=== PATIENT | female | born 1980 | race Caucasian/White ===

== ENCOUNTER 2017-12-30 10:27 | Emergency (ER) | payer MEDICARE, MEDICAID ==
[2017-12-30] MEDS ORDERED: Sodium Chloride 0.9% 10 ML Syringe FLUSH PRN (10:35)
[2017-12-30] MEDS ORDERED: Sodium Chloride 0.9% 1,000 ML IV ONE (10:36)
[2017-12-30 11:13] LABS: CHLORIDE,CL 94 mmol/L (98-107); SODIUM,NA 140 mmol/L (136-145)
[2017-12-30 11:14] LABS: ANION GAP 22.7 mmol/L (10-20)
--- NOTE | 2017-12-30 11:29 | EDM.PDOC ---
ED HPI GENERAL MEDICAL PROBLEM - General Chief Complaint: Neurological Problem Stated Complaint: Seizure; Fall Time Seen by Provider: 12/30/17 10:32 Source of Information: Reports: EMS Notes Reviewed, Family, RN, RN Notes Reviewed History Limitations: Reports: No Limitations - History of Present Illness INITIAL COMMENTS - FREE TEXT/NARRATIVE: Patient is brought to the ED at [facility] via EMS after she had a witness seizure at home. According to EMS, the patient was walking to her door to let her mother in when she tripped and fell. At the time, her mother called EMS due to the fall. While law enforcement were there, the patient had a witnessed seizure for 1-2 minutes. Upon EMS arrival, the patient appeared to post ictal. Patient was unresponsive and did not follow any commands. Arrival to ER patient initially did not open her eyes. She did after a short time, able to answer and follow commands. She complaints of left ankle pain. She denies any headache. No chest pain or SOB. Patient able to move all extremities. Onset: Today Onset Date: 12/30/17 - Related Data Allergies Allergy/AdvReac Type Severity Reaction Status Date / Time propoxyphene [From Darvon-N] Allergy Severe Hives Verified 12/30/17 11:14 heparin AdvReac Severe Other Verified 12/30/17 11:14 amoxicillin AdvReac Unknown Other Verified 12/30/17 11:14 clonidine AdvReac Unknown Other Verified 12/30/17 11:14 codeine AdvReac Unknown Nausea Verified 12/30/17 11:14 ketorolac AdvReac Unknown Nausea Verified 12/30/17 11:14 sulfamethoxazole AdvReac Unknown Nausea and Verified 12/30/17 11:14 [From Bactrim] Vomiting tramadol AdvReac Unknown Nausea Verified 12/30/17 11:14 trimethoprim [From Bactrim] AdvReac Unknown Nausea and Verified 12/30/17 11:14 Vomiting ED ROS GENERAL - Review of Systems Review Of Systems: Unable To Obtain - Physical Exam Exam: See Below Exam Limited By: No Limitations General Appearance: Alert, No Apparent Distress, Lethargic Eye Exam: Right Eye: Normal Inspection, Left Eye: Other (Prosthestic eye; Right pupil sluggish) Head Exam: Atraumatic, Normocephalic Neck: Supple Respiratory/Chest: No Respiratory Distress, Lungs Clear, Normal Breath Sounds Cardiovascular: Normal Peripheral Pulses, Regular Rate, Rhythm GI/Abdominal: Normal Bowel Sounds, Soft, Non-Tender Neuro Exam (Abbreviated): Other (Initially unresponsive; over 5-10 minutes patient able to follow commands and become more verbal) Back Exam: Normal Inspection Extremities: Other (Left anle; tib/fib obvious bone deformity; skin intact; moderate swelling) Skin Exam: Warm, Dry, Intact EKG INTERPRETATION EKG Date: 12/30/17 Time: 10:42 Rate (Beats/Min): 107 [place]: Normal P-Wave: Present QRS: Normal ST-T: Normal QT: Normal [place]/PQ Interval: 0.15 Comparison: NA - No Prior EKG EKG Interpretation Comments: 1. Sinus Tachycardia 2. ST Deviation and moderate T-wave Course - Orders/Labs/Meds Orders: Active Orders 24 hr Category Date Time Status EKG 12 Lead [EKG Documentation Completion] [RC] STAT Care 12/30/17 10:45 Active Urinary Catheter Assessment [RC] ASDIRECTED Care 12/30/17 11:02 Inactive Ankle Min 3V Lt [CR] Stat Exams 12/30/17 10:45 Ordered Head wo Cont [CT] Stat Exams 12/30/17 10:32 Taken Tibia Fibula Lt [CR] Stat Exams 12/30/17 10:46 Taken Sodium Chloride 0.9% [Saline Flush] Med 12/30/17 10:35 Active 10 ml FLUSH ASDIRECTED PRN Peripheral IV Insertion Adult [OM.PC] Routine Oth 12/30/17 10:35 Ordered Medication Orders Sodium Chloride (Saline Flush) 10 ml FLUSH ASDIRECTED PRN PRN Reason: Keep Vein Open Labs: Laboratory Tests 12/30/17 12/30/17 12/30/17 Range/Units 10:46 10:46 10:46 WBC 5.5 (4.0-10.0) x10^3/uL RBC 4.32 (4.00-5.50) x10^6/uL Hgb 12.6 (12.0-16.0) g/dL Hct 38.0 (33.0-47.0) % MCV 88.0 (78.0-93.0) fL MCH 29.2 (26.0-32.0) pg MCHC 33.2 (32.0-36.0) g/dL RDW Coeff of Sammie 14.3 (10.0-15.0) % Plt Count 210 (130-400) x10^3/uL Neut % (Auto) 62.6 (50.0-80.0) % Lymph % (Auto) 24.1 L (25.0-50.0) % [place] % (Auto) 8.9 (2.0-11.0) % Eos % (Auto) 3.3 (0.0-4.0) % Baso % (Auto) 1.1 (0.2-1.2) % PT 11.0 (9.6-11.4) SEC INR 1.1 L (2.0-3.5) APTT 23.1 (21.3-33.5) SEC Sodium 140 (136-145) mmol/L Potassium 3.7 (3.5-5.1) mmol/L Chloride 94 L (98-107) mmol/L Carbon Dioxide 27 (21-32) mmol/L Anion Gap 22.7 H (10-20) mmol/L BUN 34 H (7-18) mg/dL Creatinine 13.0 H* (0.55-1.02) mg/dL Est Cr Clr Drug Dosing TNP Estimated GFR (MDRD) 3 Glucose 163 H (74-106) mg/dL Calcium 8.5 (8.5-10.1) mg/dL Corrected Calcium 8.82 (8.5-10.1) mg/dL Total Bilirubin 0.7 (0.2-1.0) mg/dL AST 13 L (15-37) U/L ALT 13 L (14-59) U/L Alkaline Phosphatase 173 H (46-116) U/L Creatine Kinase 96 (26-192) U/L POC Troponin I (0.00-0.08) ng/mL Total Protein 7.6 (6.4-8.2) g/dL Albumin 3.6 (3.4-5.0) g/dL Globulin 4.0 Albumin/Globulin Ratio 0.90 //18 Range/Units 10:50 WBC (4.0-10.0) x10^3/uL RBC (4.00-5.50) x10^6/uL Hgb (12.0-16.0) g/dL Hct (33.0-47.0) % MCV (78.0-93.0) fL MCH (26.0-32.0) pg MCHC (32.0-36.0) g/dL RDW Coeff of Sammie (10.0-15.0) % Plt Count (130-400) x10^3/uL Neut % (Auto) (50.0-80.0) % Lymph % (Auto) (25.0-50.0) % [place] % (Auto) (2.0-11.0) % Eos % (Auto) (0.0-4.0) % Baso % (Auto) (0.2-1.2) % PT (9.6-11.4) SEC INR (2.0-3.5) APTT (21.3-33.5) SEC Sodium (136-145) mmol/L Potassium (3.5-5.1) mmol/L Chloride (98-107) mmol/L Carbon Dioxide (21-32) mmol/L Anion Gap (10-20) mmol/L BUN (7-18) mg/dL Creatinine (0.55-1.02) mg/dL Est Cr Clr Drug Dosing Estimated GFR (MDRD) Glucose (74-106) mg/dL Calcium (8.5-10.1) mg/dL Corrected Calcium (8.5-10.1) mg/dL Total Bilirubin (0.2-1.0) mg/dL AST (15-37) U/L ALT (14-59) U/L Alkaline Phosphatase (46-116) U/L Creatine Kinase (26-192) U/L POC Troponin I 0.01 (0.00-0.08) ng/mL Total Protein (6.4-8.2) g/dL Albumin (3.4-5.0) g/dL Globulin Albumin/Globulin Ratio Meds: Medications Generic Name Dose Route Start Last Admin Trade Name Freq PRN Reason Stop Dose Admin Sodium Chloride 10 ml 12/30/17 10:35 Saline Flush FLUSH ASDIRECTED PRN Keep Vein Open Discontinued Medications Generic Name Dose Route Start Last Admin Trade Name Freq PRN Reason Stop Dose Admin Sodium Chloride 1,000 mls @ 999 mls/hr 12/30/17 10:36 Normal Saline IV 12/30/17 11:36 ONETIME ONE - Radiology Interpretation Free Text/Narrative:: CT Head: Negative; no acute plain CT Abnormality Tib/Fib: Left tib/fib fracture; unstable bimalleolar fracture See scanned report in EMR CT Results Date: 12/30/17 CT Results Time: 10:47 Departure - Departure Time of Disposition: 11:45 Disposition: DC/Tfer to Acute Hospital 02 Condition: Fair Clinical Impression: Seizure Bimalleolar ankle fracture Qualifiers: Encounter type: initial encounter Fracture type: closed Laterality: left Qualified Code(s): S82.842A - Displaced bimalleolar fracture of left lower leg, initial encounter for closed fracture Tibia/fibula fracture Qualifiers: Encounter type: initial encounter Fracture type: closed Laterality: left Qualified Code(s): S82.202A - Unspecified fracture of shaft of left tibia, initial encounter for closed fracture; S82.402A - Unspecified fracture of shaft of left fibula, initial encounter for closed fracture - Discharge Information *PRESCRIPTION DRUG MONITORING PROGRAM REVIEWED*: Not Applicable *COPY OF PRESCRIPTION DRUG MONITORING REPORT IN PATIENT LYNDA: Not Applicable Forms: Interfacility Transfer [facility] ED Communication - ED Communication Date/Time Date: 12/30/17 Time Called: 11:40 - Discussed Case With (1) Discussed Case With (1): Admitting Provider (DR. Howell, ED provider) - Conversation Summary Admitting Provider Agreed to Patient's Admission: Yes Patient Aware of Amendments fo Care Plan: Yes Patient's POA/Guardian Aware of Amendments to Care Plan: Yes - Problem List Review Problem List Initiated/Reviewed/Updated: Yes - My Orders Last 24 Hours: My Active Orders 12/30/17 10:32 Head wo Cont [CT] Stat 12/30/17 10:35 Sodium Chloride 0.9% [Saline Flush] 10 ml FLUSH ASDIRECTED PRN Peripheral IV Insertion Adult [OM.PC] Routine 12/30/17 10:45 EKG 12 Lead [EKG Documentation Completion] [RC] STAT Ankle Min 3V Lt [CR] Stat 12/30/17 10:46 Tibia Fibula Lt [CR] Stat 12/30/17 11:02 Urinary Catheter Assessment [RC] ASDIRECTED - Assessment/Plan Last 24 Hours: My Active Orders 12/30/17 10:32 Head wo Cont [CT] Stat 12/30/17 10:35 Sodium Chloride 0.9% [Saline Flush] 10 ml FLUSH ASDIRECTED PRN Peripheral IV Insertion Adult [OM.PC] Routine 12/30/17 10:45 EKG 12 Lead [EKG Documentation Completion] [RC] STAT Ankle Min 3V Lt [CR] Stat 12/30/17 10:46 Tibia Fibula Lt [CR] Stat 12/30/17 11:02 Urinary Catheter Assessment [RC] ASDIRECTED
== END 2017-12-30 12:21 | disposition short-term general hospital (02) ==
LOC: VM.ED 10:27
DX: S82.842A Displaced bimalleolar fracture of left lower leg, initial encounter for closed fracture (principal); S82.832A Other fracture of upper and lower end of left fibula, initial encounter for closed fracture; R56.9 Unspecified convulsions; W01.0XXA Fall on same level from slipping, tripping and stumbling without subsequent striking against object, initial encounter; Z88.0 Allergy status to penicillin; Z88.5 Allergy status to narcotic agent; Z88.6 Allergy status to analgesic agent; Z88.8 Allergy status to other drugs, medicaments and biological substances
CPT/HCPCS: 36415; 70450; 73590-LT; 80053; 82550; 84484; 85025; 85610; 85730; 93005; 99285

== ENCOUNTER 2018-01-19 19:36 | Emergency (ER) | payer MEDICARE, MEDICAID ==
[2018-01-19 21:05] LABS: CHLORIDE,CL 95 mmol/L (98-107); SODIUM,NA 137 mmol/L (136-145)
--- NOTE | 2018-01-19 21:06 | EDM.PDOC ---
ED HPI GENERAL MEDICAL PROBLEM - General Chief Complaint: Abdominal Pain Stated Complaint: nausea, abdominal pain Time Seen by Provider: 01/19/18 20:02 Source of Information: Reports: Patient, Family History Limitations: Reports: No Limitations - History of Present Illness INITIAL COMMENTS - FREE TEXT/NARRATIVE: Dialysis patient who had a new dialysis catheter placed yesterday and shortly thereafter began vomiting. She is here today with similar symptoms, as well as abdominal pain. NO pain to the cath. site. She denies headache, SOB, change in LOC, no chest pain or pressure. Does endorse abdominal pain, nausea and vomiting. NO diarrhea. Denies fever. Onset: Gradual Duration: Intermittent Location: Reports: Abdomen Quality: Reports: Ache Associated Symptoms: Reports: Nausea/Vomiting abd Pain Score (Numeric/FACES): 6 left foot Pain Score (Numeric/FACES): 8 - Related Data Allergies Allergy/AdvReac Type Severity Reaction Status Date / Time propoxyphene [From Darvon-N] Allergy Severe Hives Verified 01/19/18 21:55 heparin AdvReac Severe Other Verified 01/19/18 21:55 amoxicillin AdvReac Unknown Other Verified 01/19/18 21:55 clonidine AdvReac Unknown Other Verified 01/19/18 21:55 codeine AdvReac Unknown Nausea Verified 01/19/18 21:55 ketorolac AdvReac Unknown Nausea Verified 01/19/18 21:55 sulfamethoxazole AdvReac Unknown Nausea and Verified 01/19/18 21:55 [From Bactrim] Vomiting tramadol AdvReac Unknown Nausea Verified 01/19/18 21:55 trimethoprim [From Bactrim] AdvReac Unknown Nausea and Verified 01/19/18 21:55 Vomiting Home Meds: Home Meds Acetaminophen 1,000 mg PO Q6H PRN 12/30/17 [History] Aspirin 81 mg PO DAILY 12/30/17 [History] Calcium Acetate [PhosLo] 2,001 mg PO TIDMEALS 12/30/17 [History] Calcium Carbonate [Tums Extra Strength] 750 mg PO TID 12/30/17 [History] Clopidogrel [Plavix] 75 mg PO DAILY 12/30/17 [History] Cyclobenzaprine [Flexeril] 5 - 10 mg PO BEDTIME PRN 12/30/17 [History] DULoxetine [Cymbalta] 60 mg PO DAILY 12/30/17 [History] Dextrose [Glucose] 15 gram PO ASDIRECTED PRN 12/30/17 [History] Dextrose [Glucose] 16 gm PO ONETIME PRN 12/30/17 [History] Doxercalciferol 0 mcg IV Q14D 12/30/17 [History] Ergocalciferol (Vitamin D2) [Drisdol] 50,000 unit PO DAILY 12/30/17 [History] Glucagon,Human Recombinant [Glucagon Emergency Kit] 1 mg IV ASDIRECTED PRN 12/30 [History] Hydrocodone/Acetaminophen [Hydrocodon-Acetaminophen 5-325] 1 tab PO Q4H PRN [History] Insulin Degludec [Tresiba Flextouch U-100] 16 units SUBCUT DAILY 12/30/17 [ History] Lisinopril 20 mg PO BID 12/30/17 [History] Lurasidone HCl [Latuda] 60 mg PO DAILY 12/30/17 [History] Metoprolol Tartrate 25 mg PO BID 12/30/17 [History] Midodrine 5 mg PO TID PRN 12/30/17 [History] Nitroglycerin [Nitrostat] 0.4 mg SL ASDIRECTED PRN MDD 3 doses in 15 minutes [History] Non-Formulary Medication [NF Drug] 0 dose SUBCUT ASDIRECTED 12/30/17 [History] Ondansetron [Zofran ODT] 4 mg PO Q4H PRN 12/30/17 [History] Pravastatin Sodium [Pravachol] 40 mg PO BEDTIME 12/30/17 [History] Pregabalin [Lyrica] 300 mg PO BEDTIME 12/30/17 [History] amLODIPine Besylate [Amlodipine Besylate] 5 mg PO BID 12/30/17 [History] ED ROS GENERAL - Review of Systems Review Of Systems: See Below Constitutional: Reports: No Symptoms HEENT: Reports: No Symptoms Respiratory: Reports: No Symptoms Cardiovascular: Reports: No Symptoms Endocrine: Reports: No Symptoms GI/Abdominal: Reports: Abdominal Pain, Nausea, Vomiting : Reports: No Symptoms Musculoskeletal: Reports: No Symptoms Skin: Reports: No Symptoms Neurological: Reports: No Symptoms Psychiatric: Reports: No Symptoms Hematologic/Lymphatic: Reports: No Symptoms Immunologic: Reports: No Symptoms ED EXAM, GENERAL - Physical Exam Exam: See Below Exam Limited By: No Limitations General Appearance: Alert, WD/WN, No Apparent Distress Eye Exam: Bilateral Eye: EOMI, Normal Inspection, PERRL Ears: Normal TMs Nose: Normal Inspection, Normal Mucosa, No Blood Throat/Mouth: Normal Inspection, Normal Lips, Normal Teeth, Normal Gums, Normal Oropharynx, Normal Voice, No Airway Compromise Head: Atraumatic, Normocephalic Neck: Normal Inspection, Supple, Non-Tender, Full Range of Motion Respiratory/Chest: No Respiratory Distress, Lungs Clear, Normal Breath Sounds, No Accessory Muscle Use, Chest Non-Tender Cardiovascular: Normal Peripheral Pulses, Regular Rate, Rhythm, No Edema, No Gallop, No JVD, No Murmur, No Rub Peripheral Pulses: 2+: Posterior Tibial (L), Posterior Tibial (R), Dorsalis Pedis (L), Dorsalis Pedis (R) GI/Abdominal: Normal Bowel Sounds, Soft, Non-Tender, No Organomegaly, No Distention, No Abnormal Bruit, No Mass Back Exam: Normal Inspection, Full Range of Motion, NT Extremities: Normal Inspection, Normal Range of Motion, Non-Tender, Normal Capillary Refill, No Pedal Edema Neurological: Alert, Oriented, CN II-XII Intact, Normal Cognition, Normal Gait, Normal Reflexes, No Motor/Sensory Deficits Psychiatric: Normal Affect, Normal Mood Skin Exam: Warm, Dry, Intact, Normal Color, No Rash Lymphatic: No Adenopathy Course - Vital Signs Last Recorded V/S: Last Vital Signs Temp 37.5 C 01/19/18 19:50 Pulse 97 01/19/18 19:50 Resp 16 01/19/18 19:50 BP 152/92 H 01/19/18 19:50 Pulse Ox 99 01/19/18 19:50 - Orders/Labs/Meds Orders: Active Orders 24 hr Category Date Time Status CULTURE BLOOD [BC] Stat Lab 01/19/18 20:25 Results CULTURE BLOOD [BC] Stat Lab 01/19/18 20:35 Results Blood Culture x2 Reflex Set [OM.PC] Stat Oth 01/19/18 20:07 Ordered Labs: Laboratory Tests 01/19/18 01/19/18 01/19/18 Range/Units 20:25 20:25 20:25 WBC 3.5 L (4.0-10.0) x10^3/uL RBC 2.83 L (4.00-5.50) x10^6/uL Hgb 8.2 L D (12.0-16.0) g/dL Hct 25.3 L (33.0-47.0) % MCV 89.4 (78.0-93.0) fL MCH 29.0 (26.0-32.0) pg MCHC 32.4 (32.0-36.0) g/dL RDW Coeff of Sammie 14.3 (10.0-15.0) % Plt Count 346 D (130-400) x10^3/uL Neut % (Auto) 51.1 (50.0-80.0) % Lymph % (Auto) 26.0 (25.0-50.0) % [place] % (Auto) 19.7 H (2.0-11.0) % Eos % (Auto) 2.0 (0.0-4.0) % Baso % (Auto) 1.2 (0.2-1.2) % PT 11.7 H (9.6-11.4) SEC INR 1.1 L (2.0-3.5) Sodium 137 (136-145) mmol/L Potassium 3.5 (3.5-5.1) mmol/L Chloride 95 L (98-107) mmol/L Carbon Dioxide 27 (21-32) mmol/L Anion Gap 18.5 (10-20) mmol/L BUN 10 (7-18) mg/dL Creatinine 5.2 H* D (0.55-1.02) mg/dL Est Cr Clr Drug Dosing TNP Estimated GFR (MDRD) 9 Glucose 145 H (74-106) mg/dL Lactic Acid (0.4-2.0) mmol/L Calcium 9.2 (8.5-10.1) mg/dL Corrected Calcium 10.24 H (8.5-10.1) mg/dL Total Bilirubin 0.7 (0.2-1.0) mg/dL AST 11 L (15-37) U/L ALT 8 L (14-59) U/L Alkaline Phosphatase 150 H (46-116) U/L Creatine Kinase 30 (26-192) U/L Troponin I < 0.017 (<=0.056) ng/mL C-Reactive Protein 10.3 H (<=0.9) mg/dL Total Protein 6.8 (6.4-8.2) g/dL Albumin 2.7 L (3.4-5.0) g/dL Globulin 4.1 Albumin/Globulin Ratio 0.66 01/19/18 Range/Units 20:25 WBC (4.0-10.0) x10^3/uL RBC (4.00-5.50) x10^6/uL Hgb (12.0-16.0) g/dL Hct (33.0-47.0) % MCV (78.0-93.0) fL MCH (26.0-32.0) pg MCHC (32.0-36.0) g/dL RDW Coeff of Sammie (10.0-15.0) % Plt Count (130-400) x10^3/uL Neut % (Auto) (50.0-80.0) % Lymph % (Auto) (25.0-50.0) % [place] % (Auto) (2.0-11.0) % Eos % (Auto) (0.0-4.0) % Baso % (Auto) (0.2-1.2) % PT (9.6-11.4) SEC INR (2.0-3.5) Sodium (136-145) mmol/L Potassium (3.5-5.1) mmol/L Chloride (98-107) mmol/L Carbon Dioxide (21-32) mmol/L Anion Gap (10-20) mmol/L BUN (7-18) mg/dL Creatinine (0.55-1.02) mg/dL Est Cr Clr Drug Dosing Estimated GFR (MDRD) Glucose (74-106) mg/dL Lactic Acid 0.6 (0.4-2.0) mmol/L Calcium (8.5-10.1) mg/dL Corrected Calcium (8.5-10.1) mg/dL Total Bilirubin (0.2-1.0) mg/dL AST (15-37) U/L ALT (14-59) U/L Alkaline Phosphatase (46-116) U/L Creatine Kinase (26-192) U/L Troponin I (<=0.056) ng/mL C-Reactive Protein (<=0.9) mg/dL Total Protein (6.4-8.2) g/dL Albumin (3.4-5.0) g/dL Globulin Albumin/Globulin Ratio Departure - Departure Time of Disposition: 21:15 Disposition: Home, Self-Care 01 Condition: Good Clinical Impression: Viral gastroenteritis - Discharge Information *PRESCRIPTION DRUG MONITORING PROGRAM REVIEWED*: Not Applicable *COPY OF PRESCRIPTION DRUG MONITORING REPORT IN PATIENT LYNDA: Not Applicable Instructions: Viral Gastroenteritis, Adult, [id number] Referrals: PCP,Not In Area [Primary Care Provider] - Forms: ED Department Discharge Additional Instructions: Stay well hydrated, drink fluids as tolerated. You do appear to have a viral gastroenteritis. However, schedule follow up with your primary provider for additional symptom management. Your labs look rather normal and do not show an acute infection. Please call the hospital with any additional questions or concerns. - My Orders Last 24 Hours: My Active Orders 01/19/18 20:07 Blood Culture x2 Reflex Set [OM.PC] Stat 01/19/18 20:25 CULTURE BLOOD [BC] Stat 01/19/18 20:35 CULTURE BLOOD [BC] Stat - Assessment/Plan Last 24 Hours: My Active Orders 01/19/18 20:07 Blood Culture x2 Reflex Set [OM.PC] Stat 01/19/18 20:25 CULTURE BLOOD [BC] Stat 01/19/18 20:35 CULTURE BLOOD [BC] Stat
[2018-01-19 21:07] LABS: ANION GAP 18.5 mmol/L (10-20)
== END 2018-01-19 21:15 | disposition home or self-care (01) ==
LOC: VM.ED 19:36
DX: A08.4 Viral intestinal infection, unspecified (principal); Z88.8 Allergy status to other drugs, medicaments and biological substances; Z79.899 Other long term (current) drug therapy; Z79.82 Long term (current) use of aspirin; Z79.4 Long term (current) use of insulin; Z99.2 Dependence on renal dialysis
CPT/HCPCS: 36415; 80053; 82550; 83605; 84484; 85025; 85610; 86140; 87040; 87077; 99283

== ENCOUNTER 2018-02-03 07:36 | Emergency (ER) | payer MEDICARE, MEDICAID ==
--- NOTE | 2018-02-03 08:02 | EDM.PDOC ---
ED HPI GENERAL MEDICAL PROBLEM - General Chief Complaint: Abdominal Pain Stated Complaint: POSITIVE CULTURE Time Seen by Provider: 02/03/18 07:57 Source of Information: Reports: Patient History Limitations: Reports: No Limitations - History of Present Illness INITIAL COMMENTS - FREE TEXT/NARRATIVE: Patient returns to the ED with nausea, vomiting, and chills. She does have a positive blood culture for bacillus cereus for which she is currently getting IV vancomycin. This was started at the [facility]. We had been trying to contact her to start her on the same, however our attempts were unsuccessful, so it is good to see that she has already been started on this. She states that the nausea and chills really had not gone away since she saw me January 19, 2018. She also does have pain and throbbing to her left ankle. She did have surgery on that foot. She has no other complaints. Her last set of blood work was negative for elevated white count. Onset: Gradual Duration: Intermittent Location: Reports: Abdomen Severity: Moderate Worsens with: Reports: Movement Associated Symptoms: Reports: Fever/Chills, Nausea/Vomiting - Related Data Allergies Allergy/AdvReac Type Severity Reaction Status Date / Time propoxyphene [From Darvon-N] Allergy Severe Hives Verified 01/19/18 21:55 heparin AdvReac Severe Other Verified 01/19/18 21:55 amoxicillin AdvReac Unknown Other Verified 01/19/18 21:55 clonidine AdvReac Unknown Other Verified 01/19/18 21:55 codeine AdvReac Unknown Nausea Verified 01/19/18 21:55 ketorolac AdvReac Unknown Nausea Verified 01/19/18 21:55 sulfamethoxazole AdvReac Unknown Nausea and Verified 01/19/18 21:55 [From Bactrim] Vomiting tramadol AdvReac Unknown Nausea Verified 01/19/18 21:55 trimethoprim [From Bactrim] AdvReac Unknown Nausea and Verified 01/19/18 21:55 Vomiting Home Meds: Home Meds Acetaminophen 1,000 mg PO Q6H PRN 12/30/17 [History] Aspirin 81 mg PO DAILY 12/30/17 [History] Calcium Acetate [PhosLo] 2,001 mg PO TIDMEALS 12/30/17 [History] Calcium Carbonate [Tums Extra Strength] 750 mg PO TID 12/30/17 [History] Clopidogrel [Plavix] 75 mg PO DAILY 12/30/17 [History] Cyclobenzaprine [Flexeril] 5 - 10 mg PO BEDTIME PRN 12/30/17 [History] DULoxetine [Cymbalta] 60 mg PO DAILY 12/30/17 [History] Dextrose [Glucose] 15 gram PO ASDIRECTED PRN 12/30/17 [History] Dextrose [Glucose] 16 gm PO ONETIME PRN 12/30/17 [History] Doxercalciferol 0 mcg IV Q14D 12/30/17 [History] Ergocalciferol (Vitamin D2) [Drisdol] 50,000 unit PO DAILY 12/30/17 [History] Glucagon,Human Recombinant [Glucagon Emergency Kit] 1 mg IV ASDIRECTED PRN 12/30 [History] Hydrocodone/Acetaminophen [Hydrocodon-Acetaminophen 5-325] 1 tab PO Q4H PRN [History] Insulin Degludec [Tresiba Flextouch U-100] 16 units SUBCUT DAILY 12/30/17 [ History] Lisinopril 20 mg PO BID 12/30/17 [History] Lurasidone HCl [Latuda] 60 mg PO DAILY 12/30/17 [History] Metoprolol Tartrate 25 mg PO BID 12/30/17 [History] Midodrine 5 mg PO TID PRN 12/30/17 [History] Nitroglycerin [Nitrostat] 0.4 mg SL ASDIRECTED PRN MDD 3 doses in 15 minutes [History] Non-Formulary Medication [NF Drug] 0 dose SUBCUT ASDIRECTED 12/30/17 [History] Ondansetron [Zofran ODT] 4 mg PO Q4H PRN 12/30/17 [History] Pravastatin Sodium [Pravachol] 40 mg PO BEDTIME 12/30/17 [History] Pregabalin [Lyrica] 300 mg PO BEDTIME 12/30/17 [History] amLODIPine Besylate [Amlodipine Besylate] 5 mg PO BID 12/30/17 [History] Past Medical History Genitourinary History: Reports: Dialysis Musculoskeletal History: Reports: Fracture - Past Surgical History Musculoskeletal Surgical History: Reports: Other (See Below) Other Musculoskeletal Surgeries/Procedures:: left foot surgery approx. 2 wks ago ED ROS GENERAL - Review of Systems Review Of Systems: See Below Constitutional: Reports: Chills HEENT: Reports: No Symptoms Respiratory: Reports: No Symptoms Cardiovascular: Reports: No Symptoms Endocrine: Reports: No Symptoms GI/Abdominal: Reports: Nausea : Reports: No Symptoms Musculoskeletal: Reports: Foot Pain Skin: Reports: No Symptoms Neurological: Reports: No Symptoms Psychiatric: Reports: No Symptoms Hematologic/Lymphatic: Reports: No Symptoms Immunologic: Reports: No Symptoms ED EXAM, GI/ABD - Physical Exam Exam: See Below Exam Limited By: No Limitations General Appearance: Alert, WD/WN, No Apparent Distress Eyes: Bilateral: Normal Appearance, EOMI Respiratory/Chest: No Respiratory Distress, Lungs Clear, Normal Breath Sounds, No Accessory Muscle Use, Chest Non-Tender, Other (dialysis catheter right subclavian) Cardiovascular: Normal Peripheral Pulses, Regular Rate, Rhythm, No Edema, No Gallop, No JVD, No Murmur, No Rub GI/Abdominal Exam: Normal Bowel Sounds, Soft, Non-Tender, No Organomegaly, No Distention, No Abnormal Bruit, No Mass, Pelvis Stable Back Exam: Normal Inspection, Full Range of Motion, NT Extremities: Normal Inspection, Normal Range of Motion, Non-Tender, No Pedal Edema, Normal Capillary Refill, Other (left foot in plastic boot) Neurological: Alert, Oriented, CN II-XII Intact, Normal Cognition, Normal Gait, Normal Reflexes, No Motor/Sensory Deficits Psychiatric: Normal Affect, Normal Mood Skin Exam: Warm, Dry, Intact, Normal Color, No Rash Lymphatic: No Adenopathy Departure - Departure Time of Disposition: 10:54 Disposition: Home, Self-Care 01 Condition: Good Clinical Impression: Nausea - Discharge Information *PRESCRIPTION DRUG MONITORING PROGRAM REVIEWED*: Not Applicable *COPY OF PRESCRIPTION DRUG MONITORING REPORT IN PATIENT LYNDA: Not Applicable Instructions: Nausea, Adult, [id number] Forms: ED Department Discharge Additional Instructions: Stay well hydrated. Make sure to keep your dialysis appointment today. You do have a blood infection, make sure to continue the IV Vancomycin. Follow up with your primary doctor as needed for additional symptom management. - Problem List & Annotations (1) Nausea SNOMED Code(s): 688917521 Code(s): R11.0 - NAUSEA Status: Acute Priority: Medium Current Visit: Yes - Problem List Review Problem List Initiated/Reviewed/Updated: Yes - Assessment/Plan Assessment:: nausea Plan: Stay well hydrated. Make sure to keep your dialysis appointment today. You do have a blood infection, make sure to continue the IV Vancomycin. Follow up with your primary doctor as needed for additional symptom management.
[2018-02-03] MEDS ORDERED: Sodium Chloride 0.9% 1,000 ML IV ONE (08:04)
[2018-02-03] MEDS ORDERED: Sodium Chloride 0.9% 10 ML Syringe FLUSH PRN (08:04)
[2018-02-03] MEDS ORDERED: Ondansetron 4 MG/2 ML SDV IVPUSH ONE (08:04)
== END 2018-02-03 10:54 | disposition home or self-care (01) ==
LOC: VM.ED 07:36
DX: R11.2 Nausea with vomiting, unspecified (principal); Z79.899 Other long term (current) drug therapy; Z79.82 Long term (current) use of aspirin; Z88.2 Allergy status to sulfonamides; Z88.6 Allergy status to analgesic agent; Z88.1 Allergy status to other antibiotic agents; Z88.8 Allergy status to other drugs, medicaments and biological substances; Z88.5 Allergy status to narcotic agent
CPT/HCPCS: 96361; 96374; 99283; 99283-GF; J2405; J7030

== ENCOUNTER 2018-02-08 09:32 | Emergency (ER) | payer MEDICARE, MEDICAID ==
[2018-02-08] MEDS ORDERED: LORazepam 2 MG/ML SDV ONE (09:39)
[2018-02-08] MEDS ORDERED: Sodium Chloride 0.9% 10 ML Syringe FLUSH PRN (09:46)
[2018-02-08] MEDS ORDERED: Sodium Chloride 0.9% 1,000 ML IV ONE (09:48)
[2018-02-08] MEDS ORDERED: Piperacillin/Tazobactam 2.25 GM in Sodium Chloride 0.9% 100 ML IV ONE (10:00)
[2018-02-08] MEDS ORDERED: Insulin Regular, Human 100 Units/ML 3 ML Vial IVPUSH ONE (10:09)
[2018-02-08 10:50] LABS: ANION GAP 38.7 mmol/L (10-20); CHLORIDE,CL 87 mmol/L (98-107); SODIUM,NA 132 mmol/L (136-145)
[2018-02-08] MEDS ORDERED: Acetaminophen 650 MG Supp RECTAL ONE (10:59)
[2018-02-08] MEDS ORDERED: Acetaminophen 650 MG Supp ONE (11:02)
[2018-02-08] MEDS ORDERED: Labetalol 20 MG/4 ML Syringe IVPUSH ONE ×2 (11:11→11:12)
--- NOTE | 2018-02-08 11:46 | EDM.PDOC ---
ED HPI GENERAL MEDICAL PROBLEM - General Chief Complaint: Possible Sepsis Time Seen by Provider: 02/08/18 09:32 Source of Information: Reports: EMS, Family History Limitations: Reports: Altered Mental Status - History of Present Illness INITIAL COMMENTS - FREE TEXT/NARRATIVE: Pt. presents to ER via EMS. Mom states that she went to check on the patient this morning around 0910. Her last known well was at noon yesterday. Mom states that she on the floor wedged between some furniture. Pt. has a complex medical history including a current dialysis line infection. A blood culture of the line grew bacillus cereus. Pt. was treated for this at [facility] and was discharged last Tuesday. She is currently receiving IV Vancomycin. Mom states that he apparently grew "staph" from a blood culture done at [facility] as well, which would explain the use of Vancomycin. I do not have access to her [facility] chart, and I'm gleaning this info from family. Pt. was responsive to strong verbal stimuli in the field. Initial GCS was around 11. O2 sat in the 90s and she was hypertensive. There was no evidence of trauma on scene. Pt. is known to be quite non-compliant with her medical problems. Mom states that she has been running "high since her discharge last Tuesday. Location: Reports: Generalized - Related Data Allergies Allergy/AdvReac Type Severity Reaction Status Date / Time propoxyphene [From Darvon-N] Allergy Severe Hives Verified 02/03/18 16:19 heparin AdvReac Severe Other Verified 02/03/18 16:19 amoxicillin AdvReac Unknown Other Verified 02/03/18 16:19 clonidine AdvReac Unknown Other Verified 02/03/18 16:19 codeine AdvReac Unknown Nausea Verified 02/03/18 16:19 ketorolac AdvReac Unknown Nausea Verified 02/03/18 16:19 sulfamethoxazole AdvReac Unknown Nausea and Verified 02/03/18 16:19 [From Bactrim] Vomiting tramadol AdvReac Unknown Nausea Verified 02/03/18 16:19 trimethoprim [From Bactrim] AdvReac Unknown Nausea and Verified 02/03/18 16:19 Vomiting Home Meds: Home Meds Acetaminophen 1,000 mg PO Q6H PRN 12/30/17 [History] Aspirin 81 mg PO DAILY 12/30/17 [History] Calcium Acetate [PhosLo] 2,001 mg PO TIDMEALS 12/30/17 [History] Calcium Carbonate [Tums Extra Strength] 750 mg PO TID 12/30/17 [History] Clopidogrel [Plavix] 75 mg PO DAILY 12/30/17 [History] Cyclobenzaprine [Flexeril] 5 - 10 mg PO BEDTIME PRN 12/30/17 [History] DULoxetine [Cymbalta] 60 mg PO DAILY 12/30/17 [History] Dextrose [Glucose] 15 gram PO ASDIRECTED PRN 12/30/17 [History] Dextrose [Glucose] 16 gm PO ONETIME PRN 12/30/17 [History] Doxercalciferol 0 mcg IV Q14D 12/30/17 [History] Ergocalciferol (Vitamin D2) [Drisdol] 50,000 unit PO DAILY 12/30/17 [History] Glucagon,Human Recombinant [Glucagon Emergency Kit] 1 mg IV ASDIRECTED PRN 12/30 [History] Hydrocodone/Acetaminophen [Hydrocodon-Acetaminophen 5-325] 1 tab PO Q4H PRN [History] Insulin Degludec [Tresiba Flextouch U-100] 16 units SUBCUT DAILY 12/30/17 [ History] Lisinopril 20 mg PO BID 12/30/17 [History] Lurasidone HCl [Latuda] 60 mg PO DAILY 12/30/17 [History] Metoprolol Tartrate 25 mg PO BID 12/30/17 [History] Midodrine 5 mg PO TID PRN 12/30/17 [History] Nitroglycerin [Nitrostat] 0.4 mg SL ASDIRECTED PRN MDD 3 doses in 15 minutes [History] Non-Formulary Medication [NF Drug] 0 dose SUBCUT ASDIRECTED 12/30/17 [History] Ondansetron [Zofran ODT] 4 mg PO Q4H PRN 12/30/17 [History] Pravastatin Sodium [Pravachol] 40 mg PO BEDTIME 12/30/17 [History] Pregabalin [Lyrica] 300 mg PO BEDTIME 12/30/17 [History] amLODIPine Besylate [Amlodipine Besylate] 5 mg PO BID 12/30/17 [History] Past Medical History Genitourinary History: Reports: Dialysis Musculoskeletal History: Reports: Fracture Endocrine/Metabolic History: Reports: Diabetes, Type I - Past Surgical History Musculoskeletal Surgical History: Reports: Other (See Below) Other Musculoskeletal Surgeries/Procedures:: left foot surgery approx. 2 wks ago ED ROS GENERAL - Review of Systems Review Of Systems: Unable To Obtain ED EXAM, GENERAL - Physical Exam Exam: See Below Exam Limited By: Uncooperative General Appearance: Lethargic, Moderate Distress Eye Exam: Bilateral Eye: EOMI (absent L eye. disconjugate gaze with R eye), PERRL Ears: Normal External Exam, Normal Canal, Normal TMs Nose: Normal Inspection, Normal Mucosa, No Blood Throat/Mouth: Normal Inspection, Normal Lips, Normal Gums, Normal Oropharynx, No Airway Compromise, Other (edentulous) Head: Atraumatic, Normocephalic Neck: Normal Inspection, Supple, Non-Tender Respiratory/Chest: No Respiratory Distress, Lungs Clear, Normal Breath Sounds, No Accessory Muscle Use Cardiovascular: Normal Peripheral Pulses, No Edema, No JVD, No Murmur, Tachycardia Peripheral Pulses: 4+: Radial (L), Radial (R) GI/Abdominal: Normal Bowel Sounds, Soft, Non-Tender, No Organomegaly, No Distention, No Abnormal Bruit, No Mass (Female) Exam: Deferred Rectal (Female) Exam: Deferred Extremities: Normal Inspection, Normal Range of Motion, Non-Tender, No Pedal Edema Neurological: Confused, Disoriented Skin Exam: Warm, Dry, Pallor Lymphatic: No Adenopathy Course - Orders/Labs/Meds Orders: Active Orders 24 hr Category Date Time Status EKG Documentation Completion [RC] STAT Care 02/08/18 09:46 Active Chest 1V Frontal [CR] Stat Exams 02/08/18 09:46 Ordered Head wo Cont [CT] Stat Exams 02/08/18 09:47 Taken CULTURE BLOOD [BC] Stat Lab 02/08/18 09:59 Results CULTURE BLOOD [BC] Stat Lab 02/08/18 10:09 Results Insulin Regular, Human [NovoLIN R] 100 unit Med 02/08/18 11:15 Ordered Sodium Chloride 0.9% [Normal Saline] 99 ml IV TITRATE LORazepam [Ativan] Med 02/08/18 11:57 Once 0.5 mg IV ONETIME ONE Sodium Chloride 0.9% [Saline Flush] Med 02/08/18 09:46 Active 10 ml FLUSH ASDIRECTED PRN Vancomycin 1 gm Med 02/08/18 10:00 Active Sodium Chloride 0.9% [Normal Saline] 250 ml IV STAT Blood Culture x2 Reflex Set [OM.PC] Stat Oth 02/08/18 09:47 Ordered Peripheral IV Insertion Adult [OM.PC] Routine Oth 02/08/18 09:47 Ordered Medication Orders Vancomycin HCl 1 gm/ Sodium (Chloride) 250 mls @ 250 mls/hr IV STAT JACK Insulin Human Regular 100 unit (/ Sodium Chloride) 100 mls @ 6 mls/hr IV TITRATE JACK; Protocol Lorazepam (Ativan) 0.5 mg IV ONETIME ONE Stop: 02/08/18 11:58 Sodium Chloride (Saline Flush) 10 ml FLUSH ASDIRECTED PRN PRN Reason: Keep Vein Open Labs: Laboratory Tests 02/08/18 02/08/18 02/08/18 Range/Units 09:48 10:09 10:09 WBC 8.3 (4.0-10.0) x10^3/uL RBC 3.71 L (4.00-5.50) x10^6/uL Hgb 11.6 L D (12.0-16.0) g/dL Hct 37.5 (33.0-47.0) % MCV 101.1 H D (78.0-93.0) fL MCH 31.3 (26.0-32.0) pg MCHC 30.9 L (32.0-36.0) g/dL RDW Coeff of Sammie 17.6 H (10.0-15.0) % Plt Count 210 D (130-400) x10^3/uL Add Manual Diff Yes Neutrophils % (Manual) 86 H (50-80) % Band Neutrophils % 5 (0-6) % Lymphocytes % (Manual) 6 L (25-50) % Monocytes % (Manual) 3 (2-11) % Platelet Estimate Adequate PT 11.2 (9.6-11.4) SEC INR 1.1 L (2.0-3.5) POC VBG pH (7.31-7.41) POC VBG pCO2 (41-51) POC VBG pO2 POC VBG HCO3 (23-28) POC VBG Total CO2 (24-29) POC VBG Base Excess ((-2) - 3) O2 Delivery Device POC O2 Flow Rate L/min POC FiO2 Sodium (136-145) mmol/L Potassium (3.5-5.1) mmol/L Chloride (98-107) mmol/L Carbon Dioxide (21-32) mmol/L Anion Gap (10-20) mmol/L BUN (7-18) mg/dL Creatinine (0.55-1.02) mg/dL Est Cr Clr Drug Dosing Estimated GFR (MDRD) Glucose (74-106) mg/dL POC Glucose > 500 H* (74-106) mg/dL Lactic Acid (0.4-2.0) mmol/L Calcium (8.5-10.1) mg/dL Corrected Calcium (8.5-10.1) mg/dL Phosphorus (2.6-4.7) mg/dL Magnesium (1.8-2.4) mg/dL Total Bilirubin (0.2-1.0) mg/dL AST (15-37) U/L ALT (14-59) U/L Alkaline Phosphatase (46-116) U/L Creatine Kinase (26-192) U/L Troponin I (<=0.056) ng/mL C-Reactive Protein (<=0.9) mg/dL NT-Pro-B Natriuret Pep (<=125) pg/mL Total Protein (6.4-8.2) g/dL Albumin (3.4-5.0) g/dL Globulin Albumin/Globulin Ratio Urine Color (YELLOW) Urine Appearance (CLEAR) Urine pH (5.0-8.0) Ur Specific [place] Urine Protein (NEGATIVE) mg/dL Urine Glucose (UA) (NEGATIVE) mg/dL Urine Ketones (NEGATIVE) mg/dL Urine Occult Blood (NEGATIVE) Urine Nitrite (NEGATIVE) Urine Bilirubin (NEGATIVE) Urine Urobilinogen (0.2) EU/dL Ur Leukocyte Esterase (NEGATIVE) Urine RBC (NOT SEEN) /HPF Urine WBC (NOT SEEN) /HPF Ur Squamous Epith Cells (NEGATIVE) /HPF Urine Bacteria (NEGATIVE) /HPF Urine Mucus (NEGATIVE) /LPF Ethyl Alcohol (0-3) mg/dL 02/08/18 02/08/18 02/08/18 Range/Units 10:09 10:09 10:09 WBC (4.0-10.0) x10^3/uL RBC (4.00-5.50) x10^6/uL Hgb (12.0-16.0) g/dL Hct (33.0-47.0) % MCV (78.0-93.0) fL MCH (26.0-32.0) pg MCHC (32.0-36.0) g/dL RDW Coeff of Sammie (10.0-15.0) % Plt Count (130-400) x10^3/uL Add Manual Diff Neutrophils % (Manual) (50-80) % Band Neutrophils % (0-6) % Lymphocytes % (Manual) (25-50) % Monocytes % (Manual) (2-11) % Platelet Estimate PT (9.6-11.4) SEC INR (2.0-3.5) POC VBG pH (7.31-7.41) POC VBG pCO2 (41-51) POC VBG pO2 POC VBG HCO3 (23-28) POC VBG Total CO2 (24-29) POC VBG Base Excess ((-2) - 3) O2 Delivery Device POC O2 Flow Rate L/min POC FiO2 Sodium 132 L (136-145) mmol/L Potassium 5.7 H D (3.5-5.1) mmol/L Chloride 87 L (98-107) mmol/L Carbon Dioxide 12 L D (21-32) mmol/L Anion Gap 38.7 H (10-20) mmol/L BUN 35 H D (7-18) mg/dL Creatinine 8.0 H* D (0.55-1.02) mg/dL Est Cr Clr Drug Dosing TNP Estimated GFR (MDRD) 6 Glucose 1089 H* (74-106) mg/dL POC Glucose (74-106) mg/dL Lactic Acid 6.7 H* (0.4-2.0) mmol/L Calcium 8.0 L (8.5-10.1) mg/dL Corrected Calcium 8.48 L D (8.5-10.1) mg/dL Phosphorus 9.3 H (2.6-4.7) mg/dL Magnesium 2.1 (1.8-2.4) mg/dL Total Bilirubin 1.1 H (0.2-1.0) mg/dL AST 62 H (15-37) U/L ALT 46 (14-59) U/L Alkaline Phosphatase 207 H (46-116) U/L Creatine Kinase 78 (26-192) U/L Troponin I 0.024 (<=0.056) ng/mL C-Reactive Protein 0.7 (<=0.9) mg/dL NT-Pro-B Natriuret Pep 90516 H (<=125) pg/mL Total Protein 7.0 (6.4-8.2) g/dL Albumin 3.4 (3.4-5.0) g/dL Globulin 3.6 Albumin/Globulin Ratio 0.94 Urine Color (YELLOW) Urine Appearance (CLEAR) Urine pH (5.0-8.0) Ur Specific [place] Urine Protein (NEGATIVE) mg/dL Urine Glucose (UA) (NEGATIVE) mg/dL Urine Ketones (NEGATIVE) mg/dL Urine Occult Blood (NEGATIVE) Urine Nitrite (NEGATIVE) Urine Bilirubin (NEGATIVE) Urine Urobilinogen (0.2) EU/dL Ur Leukocyte Esterase (NEGATIVE) Urine RBC (NOT SEEN) /HPF Urine WBC (NOT SEEN) /HPF Ur Squamous Epith Cells (NEGATIVE) /HPF Urine Bacteria (NEGATIVE) /HPF Urine Mucus (NEGATIVE) /LPF Ethyl Alcohol < 3 (0-3) mg/dL 02/08/18 02/08/18 02/08/18 Range/Units 10:40 10:45 10:55 WBC (4.0-10.0) x10^3/uL RBC (4.00-5.50) x10^6/uL Hgb (12.0-16.0) g/dL Hct (33.0-47.0) % MCV (78.0-93.0) fL MCH (26.0-32.0) pg MCHC (32.0-36.0) g/dL RDW Coeff of Sammie (10.0-15.0) % Plt Count (130-400) x10^3/uL Add Manual Diff Neutrophils % (Manual) (50-80) % Band Neutrophils % (0-6) % Lymphocytes % (Manual) (25-50) % Monocytes % (Manual) (2-11) % Platelet Estimate PT (9.6-11.4) SEC INR (2.0-3.5) POC VBG pH 7.17 L (7.31-7.41) POC VBG pCO2 24 L (41-51) POC VBG pO2 39 POC VBG HCO3 9 L (23-28) POC VBG Total CO2 9 L (24-29) POC VBG Base Excess -20 L ((-2) - 3) O2 Delivery Device Room air POC O2 Flow Rate 0.00 L/min POC FiO2 0.21 Sodium (136-145) mmol/L Potassium (3.5-5.1) mmol/L Chloride (98-107) mmol/L Carbon Dioxide (21-32) mmol/L Anion Gap (10-20) mmol/L BUN (7-18) mg/dL Creatinine (0.55-1.02) mg/dL Est Cr Clr Drug Dosing Estimated GFR (MDRD) Glucose (74-106) mg/dL POC Glucose > 500 H* (74-106) mg/dL Lactic Acid (0.4-2.0) mmol/L Calcium (8.5-10.1) mg/dL Corrected Calcium (8.5-10.1) mg/dL Phosphorus (2.6-4.7) mg/dL Magnesium (1.8-2.4) mg/dL Total Bilirubin (0.2-1.0) mg/dL AST (15-37) U/L ALT (14-59) U/L Alkaline Phosphatase (46-116) U/L Creatine Kinase (26-192) U/L Troponin I (<=0.056) ng/mL C-Reactive Protein (<=0.9) mg/dL NT-Pro-B Natriuret Pep (<=125) pg/mL Total Protein (6.4-8.2) g/dL Albumin (3.4-5.0) g/dL Globulin Albumin/Globulin Ratio Urine Color Yellow (YELLOW) Urine Appearance Clear (CLEAR) Urine pH 8.5 H (5.0-8.0) Ur Specific [place] 1.015 Urine Protein >=300 H (NEGATIVE) mg/dL Urine Glucose (UA) 500 H (NEGATIVE) mg/dL Urine Ketones 40 H (NEGATIVE) mg/dL Urine Occult Blood Trace-intact H (NEGATIVE) Urine Nitrite Negative (NEGATIVE) Urine Bilirubin Negative (NEGATIVE) Urine Urobilinogen 0.2 (0.2) EU/dL Ur Leukocyte Esterase Negative (NEGATIVE) Urine RBC 0-5 (NOT SEEN) /HPF Urine WBC 0-5 (NOT SEEN) /HPF Ur Squamous Epith Cells Few H (NEGATIVE) /HPF Urine Bacteria Not seen (NEGATIVE) /HPF Urine Mucus Not seen (NEGATIVE) /LPF Ethyl Alcohol (0-3) mg/dL Meds: Medications Generic Name Dose Route Start Last Admin Trade Name Martha PRN Reason Stop Dose Admin Vancomycin HCl 1 gm/ Sodium 250 mls @ 250 mls/hr 02/08/18 10:00 Chloride IV STAT JACK Insulin Human Regular 100 unit 100 mls @ 6 mls/hr 02/08/18 11:15 / Sodium Chloride IV TITRATE JACK Protocol 0.1 UNITS/KG/HR Lorazepam 0.5 mg 02/08/18 11:57 Ativan IV 02/08/18 11:58 ONETIME ONE Sodium Chloride 10 ml 02/08/18 09:46 Saline Flush FLUSH ASDIRECTED PRN Keep Vein Open Discontinued Medications Generic Name Dose Route Start Last Admin Trade Name Martha PRN Reason Stop Dose Admin Acetaminophen 650 mg 02/08/18 10:59 Tylenol RECTAL 02/08/18 11:00 NOW ONE Acetaminophen Confirm 02/08/18 11:02 Tylenol Administered 02/08/18 11:03 Dose 650 mg .ROUTE .STK-MED ONE Sodium Chloride 1,000 mls @ 1,000 mls/hr 02/08/18 09:48 Normal Saline IV 02/08/18 10:47 .BOLUS ONE Piperacillin Sod/Tazobactam 100 mls @ 200 mls/hr 02/08/18 10:00 Sod 2.25 gm/ Sodium Chloride IV 02/08/18 10:29 ONETIME ONE Insulin Human Regular 10 unit 02/08/18 10:09 Humulin R IVPUSH 02/08/18 10:10 ONETIME ONE Labetalol HCl 20 mg 02/08/18 11:11 02/08/18 11:55 Normodyne IVPUSH 02/08/18 11:12 Not Given NOW ONE Protocol Labetalol HCl 10 mg 02/08/18 11:12 Normodyne IVPUSH 02/08/18 11:13 NOW ONE Protocol Lorazepam Confirm 02/08/18 09:39 02/08/18 11:55 Ativan Administered 02/08/18 09:40 Not Given Dose 2 mg .ROUTE .STK-MED ONE - Re-Assessments/Exams Free Text/Narrative Re-Assessment/Exam: 02/08/18 12:02 Difficulty achieving IV access. Her dialysis port was accessed as the patient was critical. She was started on IV NS at 500hr. Was given 10u Insulin IV. Was given a gram of IV vancomycin and 2.25gm Zosyn IV. CT brain was negative. Pt was resistive to care and agitated. She was given 0.5mg ativan IV Was given 650mg tylenol supp. Labetolol 10mg IV for continued HTN. Pt. is less somnolent and able to localize better. Free Text/Narrative Re-Assessment/Exam: 02/08/18 12:06 Transfer [facility] due to DKA and Sepsis. Will start insulin drip at 10 u/hr. Continue IV fluids. Dr. Boyer is accepting. Discussed findings with family. She will be transferred via [facility] ground ambulance. Departure - Departure Time of Disposition: 12:01 Disposition: DC/Tfer to Acute Hospital 02 Condition: Critical Clinical Impression: DKA (diabetic ketoacidoses), Septicemia - Discharge Information Referrals: PCP,None [Primary Care Provider] - Forms: Interfacility Transfer EMTALA, ED Department Discharge - My Orders Last 24 Hours: My Active Orders 02/08/18 09:46 EKG Documentation Completion [RC] STAT Chest 1V Frontal [CR] Stat Sodium Chloride 0.9% [Saline Flush] 10 ml FLUSH ASDIRECTED PRN 02/08/18 09:47 Head wo Cont [CT] Stat Blood Culture x2 Reflex Set [OM.PC] Stat Peripheral IV Insertion Adult [OM.PC] Routine 02/08/18 09:59 CULTURE BLOOD [BC] Stat 02/08/18 10:00 Vancomycin 1 gm Sodium Chloride 0.9% [Normal Saline] 250 ml IV STAT 02/08/18 10:09 CULTURE BLOOD [BC] Stat 02/08/18 11:15 Insulin Regular, Human [NovoLIN R] 100 unit Sodium Chloride 0.9% [Normal Saline] 99 ml IV TITRATE 02/08/18 11:57 LORazepam [Ativan] 0.5 mg IV ONETIME ONE - Assessment/Plan Last 24 Hours: My Active Orders 02/08/18 09:46 EKG Documentation Completion [RC] STAT Chest 1V Frontal [CR] Stat Sodium Chloride 0.9% [Saline Flush] 10 ml FLUSH ASDIRECTED PRN 02/08/18 09:47 Head wo Cont [CT] Stat Blood Culture x2 Reflex Set [OM.PC] Stat Peripheral IV Insertion Adult [OM.PC] Routine 02/08/18 09:59 CULTURE BLOOD [BC] Stat 02/08/18 10:00 Vancomycin 1 gm Sodium Chloride 0.9% [Normal Saline] 250 ml IV STAT 02/08/18 10:09 CULTURE BLOOD [BC] Stat 02/08/18 11:15 Insulin Regular, Human [NovoLIN R] 100 unit Sodium Chloride 0.9% [Normal Saline] 99 ml IV TITRATE 02/08/18 11:57 LORazepam [Ativan] 0.5 mg IV ONETIME ONE
[2018-02-08] MEDS ORDERED: LORazepam 2 MG/ML SDV IV ONE (11:57)
[2018-02-08] MEDS ORDERED: Labetalol 20 MG/4 ML Syringe ONE (12:33)
== END 2018-02-08 12:30 | disposition short-term general hospital (02) ==
LOC: VM.ED 09:32
DX: A41.9 Sepsis, unspecified organism (principal); E10.10 Type 1 diabetes mellitus with ketoacidosis without coma; Z79.899 Other long term (current) drug therapy; Z79.82 Long term (current) use of aspirin; Z79.01 Long term (current) use of anticoagulants
CPT/HCPCS: 70450; 71045; 80053; 80305-QW; 81001; 82550; 82803; 82962; 83605; 83735; 83880; 84100; 84484; 85025; 85610; 86140; 87040; 93005; 96361; 96365; 96368; 96375; 96376; 99284-GF; 99291; 99292; G0480; J1815-GY

== ENCOUNTER 2018-06-11 18:49 | Emergency (ER) | payer MEDICARE, MEDICAID ==
[2018-06-11] MEDS ORDERED: Succinylcholine 200 MG/10 ML MDV ONE (19:09)
[2018-06-11] MEDS ORDERED: Rocuronium 50 MG/5 ML Vial ONE (19:09)
[2018-06-11] MEDS ORDERED: Insulin Regular, Human 100 Units/ML 3 ML Vial ONE (19:30)
[2018-06-11] MEDS ORDERED: Midazolam 1 MG/ML 2 ML SDV ONE (19:42)
--- NOTE | 2018-06-11 19:48 | EDM.PDOC ---
ED HPI GENERAL MEDICAL PROBLEM - General Chief Complaint: Neurological Problem Stated Complaint: unresponsive Time Seen by Provider: 06/11/18 19:21 Source of Information: Reports: EMS History Limitations: Reports: No Limitations - History of Present Illness INITIAL COMMENTS - FREE TEXT/NARRATIVE: Patient was found unresponsive by her father just prior to her arrival. Last known well time was last night at 10 pm. Father went to her home because she was not answering phone calls. Has been here before and is well known to us due to repeated episodes of DKA, drug overdoses. Does have regular scheduled dialysis M, W, F, with dialysis catheter. She is moving intermittently but not to commands. Found at home, does have bloody BM but is currently menstruating. Unable to complete ROS as she is unresponsive and will be intubated as respiration rate is 45. Onset: Today, Sudden Duration: Getting Worse - Related Data Allergies Allergy/AdvReac Type Severity Reaction Status Date / Time propoxyphene [From Darvon-N] Allergy Severe Hives Verified 06/10/18 04:41 heparin AdvReac Severe Other Verified 06/10/18 04:41 amoxicillin AdvReac Unknown Other Verified 06/10/18 04:41 clonidine AdvReac Unknown Other Verified 06/10/18 04:41 codeine AdvReac Unknown Nausea Verified 06/10/18 04:41 ketorolac AdvReac Unknown Nausea Verified 06/10/18 04:41 sulfamethoxazole AdvReac Unknown Nausea and Verified 06/10/18 04:41 [From Bactrim] Vomiting tramadol AdvReac Unknown Nausea Verified 06/10/18 04:41 trimethoprim [From Bactrim] AdvReac Unknown Nausea and Verified 06/10/18 04:41 Vomiting Home Meds: Home Meds Acetaminophen 1,000 mg PO Q6H PRN 12/30/17 [History] Aspirin 81 mg PO DAILY 12/30/17 [History] Calcium Acetate [PhosLo] 2,001 mg PO TIDMEALS 12/30/17 [History] Calcium Carbonate [Tums Extra Strength] 750 mg PO TID PRN 12/30/17 [History] Clopidogrel [Plavix] 75 mg PO DAILY 12/30/17 [History] Cyclobenzaprine [Flexeril] 5 - 10 mg PO BEDTIME PRN 12/30/17 [History] DULoxetine [Cymbalta] 60 mg PO DAILY 12/30/17 [History] Dextrose [Glucose] 16 gm PO ONETIME PRN 12/30/17 [History] Doxercalciferol 0 mcg IV ASDIRECTED 12/30/17 [History] Ergocalciferol (Vitamin D2) [Drisdol] 50,000 unit PO Q7D 12/30/17 [History] Glucagon,Human Recombinant [Glucagon Emergency Kit] 1 mg IV ASDIRECTED PRN 12/30 [History] Insulin Degludec [Tresiba Flextouch U-100] 8 units SUBCUT DAILY 12/30/17 [ History] Lisinopril 20 mg PO BID 12/30/17 [History] Metoprolol Tartrate 50 mg PO BID 12/30/17 [History] Midodrine 5 mg PO TID PRN 12/30/17 [History] Nitroglycerin [Nitrostat] 0.4 mg SL ASDIRECTED PRN MDD 3 doses in 15 minutes [History] Ondansetron [Zofran ODT] 4 mg PO Q4H PRN 12/30/17 [History] Pravastatin Sodium [Pravachol] 40 mg PO BEDTIME 12/30/17 [History] Pregabalin [Lyrica] 300 mg PO BEDTIME 12/30/17 [History] amLODIPine Besylate [Amlodipine Besylate] 5 mg PO BID 12/30/17 [History] Lacosamide [Vimpat] 100 mg PO BID 02/23/18 [History] levETIRAcetam [Keppra] 1,000 mg PO BID 02/23/18 [History] levETIRAcetam [Keppra] 500 mg PO MOWEFR@08 02/23/18 [History] Darbepoetin Horace in Polysorbat [Aranesp] 0 dose IV Q14D 02/24/18 [History] Phenytoin Sodium Extended 300 mg PO BEDTIME 02/24/18 [History] Sod Ferric Gluc Complex/Suc [Ferrlecit 62.5 mg/5 ml Vial] 0 dose IV Q14D [History] Hydrocodone/Acetaminophen [Hydrocodon-Acetaminophn 10-325] 1 tab PO Q6H PRN #0 03/06/18 [Rx] Insulin Lispro [Humalog] 1 unit SUBCUT BEDTIME PRN #1 pen 03/06/18 [Rx] Insulin Lispro [Humalog] 3 unit SUBCUT BEDTIME PRN #1 pen 03/06/18 [Rx] Insulin Lispro [Humalog] 5 unit SUBCUT TIDMEALS #1 pen 03/06/18 [Rx] Past Medical History Other HEENT History: 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 dysthymic disorder Endocrine/Metabolic History: Reports: Diabetes, Type I, Vitamin D Deficiency Hematologic History: Reports: Anemia Other Hematologic History: hypocalcemic - Infectious Disease History Infectious Disease History: Reports: C-Difficile - Past Surgical History HEENT Surgical History: Reports: Eye Surgery Cardiovascular Surgical History: Reports: Coronary Artery Bypass, Coronary Artery Stent Other Cardiovascular Surgeries/Procedures: angioplasty, bypass 10/24 GI Surgical History: Reports: Cholecystectomy, Colonoscopy Female Surgical History: Reports: Lithotripsy/ESWL, Tubal Ligation Musculoskeletal Surgical History: Reports: ORIF, Other (See Below) Other Musculoskeletal Surgeries/Procedures:: left foot surgery approx. 2 wks ago Social & Family History - Family History Family Medical History: Noncontributory - Caffeine Use Caffeine Use: Reports: Coffee, Soda, Tea ED ROS GENERAL - Review of Systems Review Of Systems: Unable To Obtain ED EXAM, NEURO - Physical Exam Exam: See Below Exam Limited By: Other (unresponsive) General Appearance: Obtunded, Severe Distress Eye Exam: Bilateral Eye: Abnormal EOM, Other (bilateral pupils fixed 4+, non dilatory, no movement) Ears: Normal TMs Nose: Normal Inspection, Normal Mucosa, No Blood Throat/Mouth: Other (patient unable to maintain own airway, RR's 40-50, ). No: No Airway Compromise Neck: Normal Inspection Respiratory/Chest: Respiratory Distress, Accessory Muscle Use, Retractions Cardiovascular: Tachycardia GI/Abdominal: Normal Bowel Sounds, Soft, Distended (Female) Exam: Vaginal Bleeding Neurological: Flexor Response to Pain Course - Orders/Labs/Meds Orders: Active Orders 24 hr Category Date Time Status Chest 1V Frontal [CR] Stat Exams 06/11/18 19:20 Taken Head wo Cont [CT] Stat Exams 06/11/18 18:59 Taken Labs: Laboratory Tests 06/11/18 06/11/18 06/11/18 Range/Units 19:15 19:29 19:33 WBC 13.0 H (4.0-10.0) x10^3/uL RBC 2.66 L (4.00-5.50) x10^6/uL Hgb 8.9 L (12.0-16.0) g/dL Hct 30.7 L (33.0-47.0) % MCV 115.4 H D (78.0-93.0) fL MCH 33.5 H (26.0-32.0) pg MCHC 29.0 L (32.0-36.0) g/dL RDW Coeff of Sammie 15.3 H (10.0-15.0) % Plt Count 293 D (130-400) x10^3/uL Neut % (Auto) 85.7 H (50.0-80.0) % Lymph % (Auto) 6.4 L (25.0-50.0) % [place] % (Auto) 7.8 (2.0-11.0) % Eos % (Auto) 0.0 (0.0-4.0) % Baso % (Auto) 0.1 L (0.2-1.2) % POC Sodium 127 L* (138-146) mmol/L POC Potassium 6.6 H* (3.5-4.9) mmol/L POC Chloride 90 L (98-109) mmol/L POC Total CO2 9 L (24-29) mmol/L POC Anion Gap 34.6 POC BUN 54 H (8-26) mg/dL POC Creatinine 8.4 H* (0.6-1.3) mg/dL POC Glucose 1156 H* (70-105) mg/dL POC Troponin I 0.03 (0.00-0.08) ng/mL 06/11/18 Range/Units 19:40 WBC (4.0-10.0) x10^3/uL RBC (4.00-5.50) x10^6/uL Hgb (12.0-16.0) g/dL Hct (33.0-47.0) % MCV (78.0-93.0) fL MCH (26.0-32.0) pg MCHC (32.0-36.0) g/dL RDW Coeff of Sammie (10.0-15.0) % Plt Count (130-400) x10^3/uL Neut % (Auto) (50.0-80.0) % Lymph % (Auto) (25.0-50.0) % [place] % (Auto) (2.0-11.0) % Eos % (Auto) (0.0-4.0) % Baso % (Auto) (0.2-1.2) % POC Sodium (138-146) mmol/L POC Potassium (3.5-4.9) mmol/L POC Chloride (98-109) mmol/L POC Total CO2 (24-29) mmol/L POC Anion Gap POC BUN (8-26) mg/dL POC Creatinine (0.6-1.3) mg/dL POC Glucose > 500 H* (70-105) mg/dL POC Troponin I (0.00-0.08) ng/mL Meds: Medications Discontinued Medications Generic Name Dose Route Start Last Admin Trade Name Martha PRN Reason Stop Dose Admin Propofol Confirm 06/11/18 19:10 Diprivan 50 Ml Administered 06/11/18 19:11 Dose 50 mls @ as directed .ROUTE .STK-MED ONE Insulin Human Regular Confirm 06/11/18 19:30 Humulin R Administered 06/11/18 19:31 Dose 300 unit .ROUTE .STK-MED ONE Midazolam HCl Confirm 06/11/18 19:42 Versed 1 Mg/Ml Administered 06/11/18 19:43 Dose 10 mg .ROUTE .STK-MED ONE Rocuronium [place] Confirm 06/11/18 19:09 Zemuron Administered 06/11/18 19:10 Dose 50 mg .ROUTE .STK-MED ONE Succinylcholine Chloride Confirm 06/11/18 19:09 Quelicin Administered 06/11/18 19:10 Dose 200 mg .ROUTE .STK-MED ONE - Re-Assessments/Exams Free Text/Narrative Re-Assessment/Exam: 06/11/18 20:34 Multiple attempts to gain IV access. IO inserted to right tibial tuberosity with good flow. 22 g. IV eventually started in left foot. Failed AV fistula to right lower forearm, dialysis catheter present, multiple areas of scarring to left arm and leg. Poor IV start. Lam catheter inserted with trace urine return on initial insertion 10 units regular insulin given through IV 1 liter NS started through IO RSI with versed 20 mg, 100 mg succs Repeat dose of Versed 10 mg Propofol drip started prior to transfer 30 mcg/kg/min 10 mg vec given en route by ambulance due to patient overbreathing tube Departure - Departure Time of Disposition: 20:02 Disposition: DC/Tfer to Acute Hospital 02 Condition: Poor Clinical Impression: DKA (diabetic ketoacidoses) - Discharge Information *PRESCRIPTION DRUG MONITORING PROGRAM REVIEWED*: Not Applicable *COPY OF PRESCRIPTION DRUG MONITORING REPORT IN PATIENT LYNDA: Not Applicable Referrals: Peri Farrell MD [Primary Care Provider] - Forms: ED Department Discharge, Interfacility Transfer [facility] ED Communication - ED Communication Date/Time Date: 06/11/18 Time Called: 19:30 - Discussed Case With (1) Discussed Case With (1): Other (Dr. Russell called and given report) - My Orders Last 24 Hours: My Active Orders 06/11/18 18:59 Head wo Cont [CT] Stat 06/11/18 19:20 Chest 1V Frontal [CR] Stat - Assessment/Plan Last 24 Hours: My Active Orders 06/11/18 18:59 Head wo Cont [CT] Stat 06/11/18 19:20 Chest 1V Frontal [CR] Stat
[2018-06-12] MEDS ORDERED: Midazolam 1 MG/ML 2 ML SDV ONE (02:19)
--- NOTE | 2018-06-12 08:03 | CR ---
[id number] RAD/RAD Chest PA or AP 1V EXAM: RAD Chest PA or AP 1V INDICATION: INTUBATION. COMPARISON: March 12, 2018. DISCUSSION: Interval placement of endotracheal tube with tip approximately 3 cm above the micheline in good position. Stable tunneled central venous catheter of right internal jugular approach with tip overlying the right atrium. Median sternotomy wires. Cardiomediastinal silhouette is stable in size and contour. No infiltrate, effusion, or pneumothorax. Central pulmonary vascular congestion. IMPRESSION: 1. Endotracheal tube with tip terminating approximately 3 cm above the micheline in good position. Benjamin Bradford DO 06/11/18 1944 Thank you for allowing us to participate in the care of your patient.
--- NOTE | 2018-06-12 08:03 | CT ---
[id number] CT/CT Head WO IV EXAM: NONCONTRAST HEAD CT INDICATION: STROKE CODE. COMPARISON: March 12, 2018. DISCUSSION: Stable mild generalized atrophy. Stable mild chronic small vessel ischemic changes. Apparent asymmetric hypodensity within the left frontal lobe is not significantly changed when compared to the prior. No mass effect or midline shift. No acute hemorrhage or extra-axial fluid collection. No acute territorial infarct is identified. 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 The orbits and paranasal sinuses are otherwise unremarkable. IMPRESSION: 1. No definite acute CT findings. Apparent hypodensity within the left frontal lobe was likely seen on the prior study. If continued clinical concern for acute ischemia, MRI of the brain could BE considered for further evaluation. Benjamin Bradford DO 06/11/18 1924 Thank you for allowing us to participate in the care of your patient.
== END 2018-06-11 20:02 | disposition short-term general hospital (02) ==
LOC: VM.ED 18:49
DX: E10.10 Type 1 diabetes mellitus with ketoacidosis without coma (principal); E10.40 Type 1 diabetes mellitus with diabetic neuropathy, unspecified; I11.0 Hypertensive heart disease with heart failure; I50.9 Heart failure, unspecified; I25.2 Old myocardial infarction; K21.9 Gastro-esophageal reflux disease without esophagitis; F41.9 Anxiety disorder, unspecified; F32.9 Major depressive disorder, single episode, unspecified; Z79.82 Long term (current) use of aspirin; Z79.899 Other long term (current) drug therapy; Z79.4 Long term (current) use of insulin; Z88.8 Allergy status to other drugs, medicaments and biological substances; Z88.5 Allergy status to narcotic agent; Z88.2 Allergy status to sulfonamides; Z88.1 Allergy status to other antibiotic agents
CPT/HCPCS: 31500; 51702; 70450; 71045; 80047; 82962; 84484; 85025; 96365; 96368; 96374; 96375; 96376; 99284-GF; 99291; 99292

== ENCOUNTER 2018-08-25 06:10 | Emergency (ER) | payer MEDICARE, MEDICAID ==
--- NOTE | 2018-08-25 07:22 | EDM.PDOC ---
ED HPI GENERAL MEDICAL PROBLEM - General Chief Complaint: General Stated Complaint: NON-RESPONSIVE Time Seen by Provider: 08/25/18 06:10 Source of Information: Reports: Patient History Limitations: Reports: No Limitations - History of Present Illness INITIAL COMMENTS - FREE TEXT/NARRATIVE: Patient comes in to the Emergency Department with EMS with a complaint of unresponsive episode. EMS was called by [facility] staff who state that the patient's blood sugar was in the 20s they did provide oral glucagon however the patient did not become responsive after the blood sugar was elevated. EMS transported the patient states that she continues to be nonresponsive to any stimuli. Pt was recently hospitalized including intubation with need for tracheostomy and Vibra placement secondary to prolonged hypoglycemic event. Onset: Sudden Improves with: Reports: None Worsens with: Reports: None - Related Data Allergies Allergy/AdvReac Type Severity Reaction Status Date / Time propoxyphene [From Darvon-N] Allergy Severe Hives Verified 06/10/18 04:41 heparin AdvReac Severe Other Verified 06/10/18 04:41 amoxicillin AdvReac Unknown Other Verified 06/10/18 04:41 clonidine AdvReac Unknown Other Verified 06/10/18 04:41 codeine AdvReac Unknown Nausea Verified 06/10/18 04:41 ketorolac AdvReac Unknown Nausea Verified 06/10/18 04:41 sulfamethoxazole AdvReac Unknown Nausea and Verified 06/10/18 04:41 [From Bactrim] Vomiting tramadol AdvReac Unknown Nausea Verified 06/10/18 04:41 trimethoprim [From Bactrim] AdvReac Unknown Nausea and Verified 06/10/18 04:41 Vomiting Home Meds: Home Meds Acetaminophen 1,000 mg PO Q6H PRN 12/30/17 [History] Aspirin 81 mg PO DAILY 12/30/17 [History] Calcium Acetate [PhosLo] 2,001 mg PO TIDMEALS 12/30/17 [History] Calcium Carbonate [Tums Extra Strength] 750 mg PO TID PRN 12/30/17 [History] Clopidogrel [Plavix] 75 mg PO DAILY 12/30/17 [History] Cyclobenzaprine [Flexeril] 5 - 10 mg PO BEDTIME PRN 12/30/17 [History] DULoxetine [Cymbalta] 60 mg PO DAILY 12/30/17 [History] Dextrose [Glucose] 16 gm PO ONETIME PRN 12/30/17 [History] Doxercalciferol 0 mcg IV ASDIRECTED 12/30/17 [History] Ergocalciferol (Vitamin D2) [Drisdol] 50,000 unit PO Q7D 12/30/17 [History] Glucagon,Human Recombinant [Glucagon Emergency Kit] 1 mg IV ASDIRECTED PRN 12/30 [History] Insulin Degludec [Tresiba Flextouch U-100] 8 units SUBCUT DAILY 12/30/17 [ History] Lisinopril 20 mg PO BID 12/30/17 [History] Metoprolol Tartrate 50 mg PO BID 12/30/17 [History] Midodrine 5 mg PO TID PRN 12/30/17 [History] Nitroglycerin [Nitrostat] 0.4 mg SL ASDIRECTED PRN MDD 3 doses in 15 minutes [History] Ondansetron [Zofran ODT] 4 mg PO Q4H PRN 12/30/17 [History] Pravastatin Sodium [Pravachol] 40 mg PO BEDTIME 12/30/17 [History] Pregabalin [Lyrica] 300 mg PO BEDTIME 12/30/17 [History] amLODIPine Besylate [Amlodipine Besylate] 5 mg PO BID 12/30/17 [History] Lacosamide [Vimpat] 100 mg PO BID 02/23/18 [History] levETIRAcetam [Keppra] 1,000 mg PO BID 02/23/18 [History] levETIRAcetam [Keppra] 500 mg PO MOWEFR@08 02/23/18 [History] Darbepoetin Horace in Polysorbat [Aranesp] 0 dose IV Q14D 02/24/18 [History] Phenytoin Sodium Extended 300 mg PO BEDTIME 02/24/18 [History] Sod Ferric Gluc Complex/Suc [Ferrlecit 62.5 mg/5 ml Vial] 0 dose IV Q14D [History] Hydrocodone/Acetaminophen [Hydrocodon-Acetaminophn 10-325] 1 tab PO Q6H PRN #0 03/06/18 [Rx] Insulin Lispro [Humalog] 1 unit SUBCUT BEDTIME PRN #1 pen 03/06/18 [Rx] Insulin Lispro [Humalog] 3 unit SUBCUT BEDTIME PRN #1 pen 03/06/18 [Rx] Insulin Lispro [Humalog] 5 unit SUBCUT TIDMEALS #1 pen 03/06/18 [Rx] Past Medical History Other HEENT History: 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 dysthymic disorder Endocrine/Metabolic History: Reports: Diabetes, Type I, Vitamin D Deficiency Hematologic History: Reports: Anemia Other Hematologic History: hypocalcemic - Infectious Disease History Infectious Disease History: Reports: C-Difficile - Past Surgical History HEENT Surgical History: Reports: Eye Surgery Cardiovascular Surgical History: Reports: Coronary Artery Bypass, Coronary Artery Stent Other Cardiovascular Surgeries/Procedures: angioplasty, bypass 10/24 GI Surgical History: Reports: Cholecystectomy, Colonoscopy Female Surgical History: Reports: Lithotripsy/ESWL, Tubal Ligation Musculoskeletal Surgical History: Reports: ORIF, Other (See Below) Other Musculoskeletal Surgeries/Procedures:: left foot surgery approx. 2 wks ago Social & Family History - Family History Family Medical History: Noncontributory - Caffeine Use Caffeine Use: Reports: Coffee, Soda, Tea ED ROS GENERAL - Review of Systems Review Of Systems: Unable To Obtain ED EXAM, GENERAL - Physical Exam Exam: See Below Exam Limited By: Respiratory Distress General Appearance: Obtunded, Severe Distress Eye Exam: Right Eye: Abnormal Pupil (5mm dilation with no movement or accommodation), Left Eye: Other (glass eye ) Head: Atraumatic, Normocephalic Respiratory/Chest: Respiratory Distress, Accessory Muscle Use, Retractions Cardiovascular: Normal Peripheral Pulses, Regular Rate, Rhythm, No Edema Neurological: No Motor/Sensory Deficits Skin Exam: Cool ED GENERAL MEDICAL PROCEDURES - Endotracheal Intubation Time of Intubation: 06:45 (Please see Luiz Juarez Documentation ) ET Intubation Indication: Respiratory Failure, Airway Protection Pre-Oxygenation: Assisted with BVM, 100% FiO2 Placement: Cuffed ETT Size In mm: 4.5 Number of Attempts: Other: (see Luiz Juarez Documenation) Confirmed By: CO2 Indicator, Bilateral Breath Sounds, Chest Xray Tube Secured By: Other (Luiz Juarez) Course - Vital Signs Last Recorded V/S: Last Vital Signs Temp 35 C L 08/25/18 06:12 Pulse Resp 20 08/25/18 06:12 BP 116/49 L 08/25/18 06:12 Pulse Ox 92 L 08/25/18 06:12 - Orders/Labs/Meds Orders: Active Orders 24 hr Category Date Time Status Insert Urinary Catheter [OM.PC] Q24H Care 08/25/18 07:30 Ordered Urinary Catheter Assessment [RC] ASDIRECTED Care 08/25/18 07:26 Active CULTURE BLOOD [BC] Routine Lab 08/25/18 06:52 Results CULTURE URINE [RM] Routine Lab 08/25/18 07:00 Received NG [Nasogastric Orogastric Tube Insertion] [OM.PC] Oth 08/25/18 07:25 Ordered Routine Labs: Laboratory Tests 08/25/18 08/25/18 08/25/18 Range/Units 06:26 06:31 06:35 WBC 11.7 H (4.0-10.0) x10^3/uL RBC 4.24 (4.00-5.50) x10^6/uL Hgb 12.4 D (12.0-16.0) g/dL Hct 37.6 (33.0-47.0) % MCV 88.7 D (78.0-93.0) fL MCH 29.2 (26.0-32.0) pg MCHC 33.0 (32.0-36.0) g/dL RDW Coeff of Sammie 14.0 (10.0-15.0) % Plt Count 179 D (130-400) x10^3/uL Neut % (Auto) 79.3 (50.0-80.0) % Lymph % (Auto) 11.0 L (25.0-50.0) % Parker % (Auto) 6.6 (2.0-11.0) % Eos % (Auto) 2.6 (0.0-4.0) % Baso % (Auto) 0.5 (0.2-1.2) % POC ABG pH 7.468 H (7.35-7.45) POC ABG pCO2 50 H (35-45) mmHG POC ABG pO2 106 H (80-105) mmHG POC ABG HCO3 37 H (22-26) mmol/L POC ABG Total CO2 38 H (23-27) mmol/L POC ABG O2 Sat 98 (95-98) % POC ABG Base Excess 13 H (-2-3) mmol/L POC FiO2 0.36 Sodium (136-145) mmol/L Potassium (3.5-5.1) mmol/L Chloride (98-107) mmol/L Carbon Dioxide (21-32) mmol/L Anion Gap (10-20) mmol/L BUN (7-18) mg/dL Creatinine (0.55-1.02) mg/dL Est Cr Clr Drug Dosing Estimated GFR (MDRD) Glucose (74-106) mg/dL POC Glucose 213 H (74-106) mg/dL Lactic Acid (0.4-2.0) mmol/L Calcium (8.5-10.1) mg/dL Corrected Calcium (8.5-10.1) mg/dL Total Bilirubin (0.2-1.0) mg/dL AST (15-37) U/L ALT (14-59) U/L Alkaline Phosphatase (46-116) U/L POC Troponin I (0.00-0.08) ng/mL NT-Pro-B Natriuret Pep (<=125) pg/mL Total Protein (6.4-8.2) g/dL Albumin (3.4-5.0) g/dL Globulin Albumin/Globulin Ratio Urine Color (YELLOW) Urine Appearance (CLEAR) Urine pH (5.0-8.0) Ur Specific Milton Urine Protein (NEGATIVE) mg/dL Urine Glucose (UA) (NEGATIVE) mg/dL Urine Ketones (NEGATIVE) mg/dL Urine Occult Blood (NEGATIVE) Urine Nitrite (NEGATIVE) Urine Bilirubin (NEGATIVE) Urine Urobilinogen (0.2) EU/dL Ur Leukocyte Esterase (NEGATIVE) Urine RBC (NOT SEEN) /HPF Urine WBC (NOT SEEN) /HPF Ur Squamous Epith Cells (NEGATIVE) /HPF Amorphous Sediment Urine Bacteria (NEGATIVE) /HPF Urine Mucus (NEGATIVE) /LPF 08/25/18 08/25/18 08/25/18 Range/Units 06:35 06:35 06:44 WBC (4.0-10.0) x10^3/uL RBC (4.00-5.50) x10^6/uL Hgb (12.0-16.0) g/dL Hct (33.0-47.0) % MCV (78.0-93.0) fL MCH (26.0-32.0) pg MCHC (32.0-36.0) g/dL RDW Coeff of Sammie (10.0-15.0) % Plt Count (130-400) x10^3/uL Neut % (Auto) (50.0-80.0) % Lymph % (Auto) (25.0-50.0) % Parker % (Auto) (2.0-11.0) % Eos % (Auto) (0.0-4.0) % Baso % (Auto) (0.2-1.2) % POC ABG pH (7.35-7.45) POC ABG pCO2 (35-45) mmHG POC ABG pO2 (80-105) mmHG POC ABG HCO3 (22-26) mmol/L POC ABG Total CO2 (23-27) mmol/L POC ABG O2 Sat (95-98) % POC ABG Base Excess (-2-3) mmol/L POC FiO2 Sodium 139 (136-145) mmol/L Potassium 5.0 (3.5-5.1) mmol/L Chloride 98 (98-107) mmol/L Carbon Dioxide 36 H (21-32) mmol/L Anion Gap 10.0 (10-20) mmol/L BUN 20 H D (7-18) mg/dL Creatinine 3.7 H* D (0.55-1.02) mg/dL Est Cr Clr Drug Dosing TNP Estimated GFR (MDRD) 14 Glucose 224 H (74-106) mg/dL POC Glucose (74-106) mg/dL Lactic Acid 2.0 (0.4-2.0) mmol/L Calcium 9.4 D (8.5-10.1) mg/dL Corrected Calcium 10.60 H D (8.5-10.1) mg/dL Total Bilirubin 0.6 (0.2-1.0) mg/dL AST 14 L (15-37) U/L ALT 15 (14-59) U/L Alkaline Phosphatase 126 H (46-116) U/L POC Troponin I 0.00 (0.00-0.08) ng/mL NT-Pro-B Natriuret Pep 3823 H (<=125) pg/mL Total Protein 6.1 L (6.4-8.2) g/dL Albumin 2.5 L (3.4-5.0) g/dL Globulin 3.6 Albumin/Globulin Ratio 0.69 Urine Color (YELLOW) Urine Appearance (CLEAR) Urine pH (5.0-8.0) Ur Specific Milton Urine Protein (NEGATIVE) mg/dL Urine Glucose (UA) (NEGATIVE) mg/dL Urine Ketones (NEGATIVE) mg/dL Urine Occult Blood (NEGATIVE) Urine Nitrite (NEGATIVE) Urine Bilirubin (NEGATIVE) Urine Urobilinogen (0.2) EU/dL Ur Leukocyte Esterase (NEGATIVE) Urine RBC (NOT SEEN) /HPF Urine WBC (NOT SEEN) /HPF Ur Squamous Epith Cells (NEGATIVE) /HPF Amorphous Sediment Urine Bacteria (NEGATIVE) /HPF Urine Mucus (NEGATIVE) /LPF 08/25/18 Range/Units 07:00 WBC (4.0-10.0) x10^3/uL RBC (4.00-5.50) x10^6/uL Hgb (12.0-16.0) g/dL Hct (33.0-47.0) % MCV (78.0-93.0) fL MCH (26.0-32.0) pg MCHC (32.0-36.0) g/dL RDW Coeff of Sammie (10.0-15.0) % Plt Count (130-400) x10^3/uL Neut % (Auto) (50.0-80.0) % Lymph % (Auto) (25.0-50.0) % Parker % (Auto) (2.0-11.0) % Eos % (Auto) (0.0-4.0) % Baso % (Auto) (0.2-1.2) % POC ABG pH (7.35-7.45) POC ABG pCO2 (35-45) mmHG POC ABG pO2 (80-105) mmHG POC ABG HCO3 (22-26) mmol/L POC ABG Total CO2 (23-27) mmol/L POC ABG O2 Sat (95-98) % POC ABG Base Excess (-2-3) mmol/L POC FiO2 Sodium (136-145) mmol/L Potassium (3.5-5.1) mmol/L Chloride (98-107) mmol/L Carbon Dioxide (21-32) mmol/L Anion Gap (10-20) mmol/L BUN (7-18) mg/dL Creatinine (0.55-1.02) mg/dL Est Cr Clr Drug Dosing Estimated GFR (MDRD) Glucose (74-106) mg/dL POC Glucose (74-106) mg/dL Lactic Acid (0.4-2.0) mmol/L Calcium (8.5-10.1) mg/dL Corrected Calcium (8.5-10.1) mg/dL Total Bilirubin (0.2-1.0) mg/dL AST (15-37) U/L ALT (14-59) U/L Alkaline Phosphatase (46-116) U/L POC Troponin I (0.00-0.08) ng/mL NT-Pro-B Natriuret Pep (<=125) pg/mL Total Protein (6.4-8.2) g/dL Albumin (3.4-5.0) g/dL Globulin Albumin/Globulin Ratio Urine Color Brown H (YELLOW) Urine Appearance Turbid H (CLEAR) Urine pH 7.5 (5.0-8.0) Ur Specific Milton 1.020 Urine Protein >=300 H (NEGATIVE) mg/dL Urine Glucose (UA) Negative (NEGATIVE) mg/dL Urine Ketones Negative (NEGATIVE) mg/dL Urine Occult Blood Large H (NEGATIVE) Urine Nitrite Negative (NEGATIVE) Urine Bilirubin Small H (NEGATIVE) Urine Urobilinogen 0.2 (0.2) EU/dL Ur Leukocyte Esterase Large H (NEGATIVE) Urine RBC 5-10 H (NOT SEEN) /HPF Urine WBC 40-50 H (NOT SEEN) /HPF Ur Squamous Epith Cells Rare (NEGATIVE) /HPF Amorphous Sediment Moderate Urine Bacteria Moderate H (NEGATIVE) /HPF Urine Mucus Not seen (NEGATIVE) /LPF Meds: Medications Discontinued Medications Generic Name Dose Route Start Last Admin Trade Name Martha PRN Reason Stop Dose Admin Chlorhexidine Gluconate Confirm 08/25/18 09:17 Peridex 0.12% Rinse Administered 08/25/18 09:18 Dose 15 ml .ROUTE .STK-MED ONE Etomidate Confirm 08/25/18 09:15 Amidate Administered 08/25/18 09:16 Dose 20 mg .ROUTE .STK-MED ONE Fentanyl Confirm 08/25/18 09:13 Sublimaze Administered 08/25/18 09:14 Dose 100 mcg .ROUTE .STK-MED ONE Midazolam HCl Confirm 08/25/18 09:14 Versed 1 Mg/Ml Administered 08/25/18 09:15 Dose 2 mg .ROUTE .STK-MED ONE Norepinephrine Bitartrate Confirm 08/25/18 09:18 Levophed Administered 08/25/18 09:19 Dose 4 mg .ROUTE .STK-MED ONE Departure - Departure Time of Disposition: 07:40 Disposition: DC/Tfer to [facility] 02 Condition: Critical Clinical Impression: Encephalopathy acute, Hypoglycemia - Discharge Information *PRESCRIPTION DRUG MONITORING PROGRAM REVIEWED*: Not Applicable *COPY OF PRESCRIPTION DRUG MONITORING REPORT IN PATIENT LYNDA: Not Applicable Referrals: Peri Farrell MD [Primary Care Provider] - Forms: ED Department Discharge, Interfacility Transfer EMTALA - Problem List Review Problem List Initiated/Reviewed/Updated: Yes - My Orders Last 24 Hours: My Active Orders 08/25/18 06:52 CULTURE BLOOD [BC] Routine 08/25/18 07:00 CULTURE URINE [RM] Routine 08/25/18 07:25 NG [Nasogastric Orogastric Tube Insertion] [OM.PC] Routine 08/25/18 07:26 Urinary Catheter Assessment [RC] ASDIRECTED 08/25/18 07:30 Insert Urinary Catheter [OM.PC] Q24H - Assessment/Plan Last 24 Hours: My Active Orders 08/25/18 06:52 CULTURE BLOOD [BC] Routine 08/25/18 07:00 CULTURE URINE [RM] Routine 08/25/18 07:25 NG [Nasogastric Orogastric Tube Insertion] [OM.PC] Routine 08/25/18 07:26 Urinary Catheter Assessment [RC] ASDIRECTED 08/25/18 07:30 Insert Urinary Catheter [OM.PC] Q24H Assessment:: 1. unresponsive Plan: 1. Patient given emergency Department was unresponsive with kusmal respirations. Patient was having difficulty holding her airway. She remained unresponsive with no notable purposeful reflexes noted. Saturation on nasal cannula initially at 2-4 L oxygen saturation is in the low 90s. Shortly after patient's arrival in the emergency department her oxygenation began to decrease require more supplemental oxygen. Her respiratory status continued to declined and more significant substernal and subclavicular retractions were noted. Patient continues to remain unresponsive during the assessment. Luiz Kumar CRNA was contacted to intubate. 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 He states he tried multiple tubes prior to getting a 5.0cm uncuffed. Time was 15mins. 2. ABG completed in ER- see above for results 3. Labs completed in ER- see above for results 4. CT completed in ER-no acute findings 5. A wilson cathertart was placed. It was unsure initially if she is anuric with being on dialysis or if she still produces some output 6. NG was placed after intubation. 7. Bedside glucose completed-213 in ER 8. ICU at [place] was contacted at [id number] call back was made . Dr. foster is willing to accept transport however he would like the ET tube to be exchanged to a cuffed prior to transport. Luiz Kumar CRNA was contacted to return to the ER to exchange tube. He voiced "it will be a little while". Pt was transported to CT with staff and portable vent. When she returned Luiz Kumar returned to the ER exchanged the tube and placed a 4.5cm cuffed. 9. X-ray completed after tube exchange- Luiz Kumar verified placement. 10. Family was updated regarding pt status and they will head to [place]. 11. All questions and concerns were addressed prior to discharge.
[2018-08-25 07:24] LABS: CHLORIDE,CL 98 mmol/L (98-107); SODIUM,NA 139 mmol/L (136-145)
--- NOTE | 2018-08-25 07:36 | CT ---
[id number] CT/CT Head WO IV EXAM: CT Head WO IV CLINICAL DATA: UNRESPONSIVE PATIENT COMPARISON: CORRELATION IS MADE WITH THE EXAM OF JUNE 11, 2018. FINDINGS: An ET tube and NG tube are seen. There is bilateral middle ear and mastoid air cell opacification. A prosthetic left globe is seen. There is no mass or mass effect. There is no hemorrhage or hydrocephalus. There are no extra-axial fluid collections. There are no sites of abnormal attenuation. IMPRESSION: NO PLAIN CT EVIDENCE OF ACUTE INTRACRANIAL PROCESS. Johnathon Cuellar MD 08/25/18 0735 Thank you for allowing us to participate in the care of your patient.
--- NOTE | 2018-08-25 07:44 | CR ---
[id number] RAD/RAD Chest PA or AP 1V EXAM: SINGLE VIEW CHEST. INDICATION: PLACEMENT OF ET TUBE AND NG TUBE COMPARISON: CORRELATION IS MADE WITH THE EXAM OF JUNE 11, 2018. FINDINGS: The ET tube and NG tube are in good position. A dialysis catheter is seen. There appears to be a chest tube on the left. Cardiac surgical changes are identified. Elevation of the right hemidiaphragm is seen. IMPRESSION: ET TUBE AND NG TUBE IN GOOD POSITION. Johnathon Cuellar MD 08/25/18 0743 Thank you for allowing us to participate in the care of your patient.
--- NOTE | 2018-08-25 08:51 | PCM.PRNOTE ---
- Free Text/Narrative Note: Intubation note: Was called to the emergency room for a patient who was in severe acute respiratory distress. The patient is found to have spontaneous respirations but these were ineffective respirations. . Patient was spontaneously moving but not responsive to voice. I was requested to intubate this patient so the patient could be transported [place]. Ambu and intubation equipment was assembled. Glidescope was set up and checked. Patient was Ambued with 100% O2. The patient was prepped with ChloraPrep orally. Excess was suctioned. The patient was given etomidate 618 mg, and succinylcholine 120 mg: IV. This was allowed to circulate and the patient was Ambued throughout. Visualization using a Glidescope was obtained. A 6.0 mm ID endotracheal tube was advanced using a rigid stylet, however upon visualization with the tube near the cords it was apparent that a 6.0 tube was not going to be able to be passed. The tube was switched for 5.5 mm ID ET tube and this was passed using a rigid stylet. 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 The patient was Ambued in between attempts. At this point it was determined to Ambu the patient and past a bougie stylette through the cords. This took several attempts to get the bougie through the cords but it finally was able to pass. Additional doses succinylcholine 40 mg IV was given prior to the bougie attempt. At that point a 5.0 uncuffed ET tube was passed through the vocal cords with some resistance to the tightness of the cords noted. The patient was Ambued . The tube was advanced to 18 cm at the teeth. End tidal CO2 was positive at 66 mmHg. Breath sounds or positive over of all lung pabon and negative over the epigastric area. Patient was hyperventilated until the end tidal CO2 reach 41 millimeters of mercury. Tube was secured with a bite block securing device. Ambu with 100% O2 was continued. The patient is a was minimally responsive and was placed on a ventilator. Ventilator settings tidal volume 400 mL, respiratory rate 12, 80% O2 and +5 PEEP. Report was given to the staff. Maik back into the emergency room due to the fact that the accepting physician in [place] in [place] would not accept the patient with an uncuffed ET tube in place and they requested to be changed.. A Cook catheter tube exchanger was advanced through the endotracheal tube. At this point the patient did cough as the catheter contacted the the micheline. Patient was given rocuronium 50 mg IV as well as midazolam 2 mg IV. The catheter was held in place and the tube was removed. A 4.5 mm internal diameter tube was passed over the ET exchanger. This was a cuffed tube. The balloon was inflated to approximately 4 mL. The tube was secured at 18 cm at the teeth by the bite block tube securing device. Breath sounds were positive bilaterally and negative over the epigastric region. End tidal CO2 was 44 after tube exchange. Patient was placed back on the ventilator with settings per the emergency room provider. Chest x-ray was obtained. Chest x -ray shows ET tube to be in good position approximately 4-6 cm superior to the micheline. Report was given to the staff.
[2018-08-25] MEDS ORDERED: fentaNYL 100 MCG/2 ML SDV ONE (09:13)
[2018-08-25] MEDS ORDERED: Midazolam 1 MG/ML 2 ML SDV ONE (09:14)
[2018-08-25] MEDS ORDERED: Etomidate 2 MG/ML 10 ML SDV ONE (09:15)
[2018-08-25] MEDS ORDERED: Chlorhexidine Gluconate 0.12% Oral Rinse 15 ML Cup ONE (09:17)
[2018-08-25] MEDS ORDERED: Norepinephrine 4 MG/4 ML SDV ONE (09:18)
== END 2018-08-25 07:40 | disposition short-term general hospital (02) ==
LOC: VM.ED 06:10
DX: G93.40 Encephalopathy, unspecified (principal); E11.65 Type 2 diabetes mellitus with hyperglycemia; I11.0 Hypertensive heart disease with heart failure; I50.9 Heart failure, unspecified; I25.2 Old myocardial infarction; E11.40 Type 2 diabetes mellitus with diabetic neuropathy, unspecified; Z88.8 Allergy status to other drugs, medicaments and biological substances; Z88.5 Allergy status to narcotic agent; Z88.2 Allergy status to sulfonamides; Z79.82 Long term (current) use of aspirin; Z79.899 Other long term (current) drug therapy
CPT/HCPCS: 31500; 36415; 36600; 43752; 51702; 70450; 71045; 80053; 81001; 82803; 82962; 83605; 83880; 84484; 85025; 87040; 87086; 96361; 96374; 96375; 99291-25; 99292

== ENCOUNTER 2018-11-25 12:12 | Emergency (ER) | payer MEDICARE, MEDICAID ==
--- NOTE | 2018-11-25 13:00 | EDM.PDOC ---
ED HPI GENERAL MEDICAL PROBLEM - General Stated Complaint: ER VISIT Time Seen by Provider: 11/25/18 12:34 Source of Information: Reports: Patient History Limitations: Reports: No Limitations - History of Present Illness INITIAL COMMENTS - FREE TEXT/NARRATIVE: Patient comes into the emergency department with complaints of diarrhea. Patient was recently hospitalized for extended period time in the ICU stepdown unit. She also has a trach in place. She did have C difficile when she was hospitalized and was treated with antibiotics. Patient states since she's been discharged on November 04 she's continue to have diarrhea. She denies again any worse or any better. She has seen her primary care provider who has suggested increasing her fiber intake. Patient states she's increase her fiber intake and the diarrhea continues. Patient denies any fever, nausea, abnormal blood sugar levels, or any other concerns or complaints. Patient did she's tired of the diarrhea. She does not feel the diarrhea is foul smelling as it was when she was in the hospital. She has no other concerns or complaints other than diarrhea. She states that the diarrhea episodes are multiple times a day. Again as stated above she states that they have not increased in frequency or change in consistencies since she has been discharged from the hospital. She does not remember having a stool sample in the last 30 days, being on any new medications , or antibiotic use. Onset: Gradual Quality: Reports: Other Improves with: Reports: None Worsens with: Reports: None Associated Symptoms: Reports: No Other Symptoms Abdomen Pain Score (Numeric/FACES): 5 - Related Data Allergies Allergy/AdvReac Type Severity Reaction Status Date / Time propoxyphene [From Darvon-N] Allergy Severe Hives Verified 11/25/18 18:14 heparin AdvReac Severe Other Verified 11/25/18 18:14 amoxicillin AdvReac Unknown Other Verified 11/25/18 18:14 clonidine AdvReac Unknown Other Verified 11/25/18 18:14 codeine AdvReac Unknown Nausea Verified 11/25/18 18:14 ketorolac AdvReac Unknown Nausea Verified 11/25/18 18:14 sulfamethoxazole AdvReac Unknown Nausea and Verified 11/25/18 18:14 [From Bactrim] Vomiting tramadol AdvReac Unknown Nausea Verified 11/25/18 18:14 trimethoprim [From Bactrim] AdvReac Unknown Nausea and Verified 11/25/18 18:14 Vomiting Home Meds: Home Meds Acetaminophen 1,000 mg PO Q6H PRN 12/30/17 [History] Aspirin 81 mg PO DAILY 12/30/17 [History] Calcium Acetate [PhosLo] 2,001 mg PO TIDMEALS 12/30/17 [History] Calcium Carbonate [Tums Extra Strength] 750 mg PO TID PRN 12/30/17 [History] Clopidogrel [Plavix] 75 mg PO DAILY 12/30/17 [History] Cyclobenzaprine [Flexeril] 5 - 10 mg PO BEDTIME PRN 12/30/17 [History] DULoxetine [Cymbalta] 60 mg PO DAILY 12/30/17 [History] Dextrose [Glucose] 16 gm PO ONETIME PRN 12/30/17 [History] Doxercalciferol 0 mcg IV ASDIRECTED 12/30/17 [History] Ergocalciferol (Vitamin D2) [Drisdol] 50,000 unit PO Q7D 12/30/17 [History] Glucagon,Human Recombinant [Glucagon Emergency Kit] 1 mg IV ASDIRECTED PRN 12/30 [History] Insulin Degludec [Tresiba Flextouch U-100] 8 units SUBCUT DAILY 12/30/17 [ History] Lisinopril 20 mg PO BID 12/30/17 [History] Metoprolol Tartrate 50 mg PO BID 12/30/17 [History] Midodrine 5 mg PO TID PRN 12/30/17 [History] Nitroglycerin [Nitrostat] 0.4 mg SL ASDIRECTED PRN MDD 3 doses in 15 minutes [History] Ondansetron [Zofran ODT] 4 mg PO Q4H PRN 12/30/17 [History] Pravastatin Sodium [Pravachol] 40 mg PO BEDTIME 12/30/17 [History] Pregabalin [Lyrica] 300 mg PO BEDTIME 12/30/17 [History] amLODIPine Besylate [Amlodipine Besylate] 5 mg PO BID 12/30/17 [History] Lacosamide [Vimpat] 100 mg PO BID 02/23/18 [History] levETIRAcetam [Keppra] 1,000 mg PO BID 02/23/18 [History] levETIRAcetam [Keppra] 500 mg PO MOWEFR@08 02/23/18 [History] Darbepoetin Horace in Polysorbat [Aranesp] 0 dose IV Q14D 02/24/18 [History] Phenytoin Sodium Extended 300 mg PO BEDTIME 02/24/18 [History] Sod Ferric Gluc Complex/Suc [Ferrlecit 62.5 mg/5 ml Vial] 0 dose IV Q14D [History] Hydrocodone/Acetaminophen [Hydrocodon-Acetaminophn 10-325] 1 tab PO Q6H PRN #0 03/06/18 [Rx] Insulin Lispro [Humalog] 1 unit SUBCUT BEDTIME PRN #1 pen 03/06/18 [Rx] Insulin Lispro [Humalog] 3 unit SUBCUT BEDTIME PRN #1 pen 03/06/18 [Rx] Insulin Lispro [Humalog] 5 unit SUBCUT TIDMEALS #1 pen 03/06/18 [Rx] Past Medical History Other HEENT History: 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 dysthymic disorder Endocrine/Metabolic History: Reports: Diabetes, Type I, Vitamin D Deficiency Hematologic History: Reports: Anemia Other Hematologic History: hypocalcemic - Infectious Disease History Infectious Disease History: Reports: C-Difficile - Past Surgical History HEENT Surgical History: Reports: Eye Surgery Cardiovascular Surgical History: Reports: Coronary Artery Bypass, Coronary Artery Stent Other Cardiovascular Surgeries/Procedures: angioplasty, bypass 10/24 GI Surgical History: Reports: Cholecystectomy, Colonoscopy Female Surgical History: Reports: Lithotripsy/ESWL, Tubal Ligation Musculoskeletal Surgical History: Reports: ORIF, Other (See Below) Other Musculoskeletal Surgeries/Procedures:: left foot surgery approx. 2 wks ago Social & Family History - Family History Family Medical History: Noncontributory - Caffeine Use Caffeine Use: Reports: Coffee, Soda, Tea ED ROS GENERAL - Review of Systems Review Of Systems: ROS reveals no pertinent complaints other than HPI. Constitutional: Reports: No Symptoms HEENT: Reports: No Symptoms Respiratory: Reports: No Symptoms Cardiovascular: Reports: No Symptoms Endocrine: Reports: No Symptoms GI/Abdominal: Denies: Abdominal Pain, Anorexia, Black Stool, Bloody Stool, Constipation, Decreased Appetite, Distension, Flatus, Hematemesis, Hematochezia , Melena : Reports: No Symptoms Musculoskeletal: Reports: No Symptoms Skin: Reports: No Symptoms Neurological: Reports: No Symptoms Psychiatric: Reports: No Symptoms Hematologic/Lymphatic: Reports: No Symptoms ED EXAM, GENERAL - Physical Exam Exam: See Below Exam Limited By: No Limitations General Appearance: Alert, WD/WN, No Apparent Distress Head: Atraumatic, Normocephalic Neck: Normal Inspection, Supple Respiratory/Chest: No Respiratory Distress, Lungs Clear, No Accessory Muscle Use Cardiovascular: Normal Peripheral Pulses, Regular Rate, Rhythm GI/Abdominal: Normal Bowel Sounds, Soft, Non-Tender, No Distention. No: Distended, Guarding, Rigid, Rebound, Tender, Abnormal Bowel Sounds, Hernia, Mass , Hepatomegaly Back Exam: Normal Inspection, Full Range of Motion Extremities: Normal Inspection, Normal Range of Motion, Non-Tender Neurological: Alert, Oriented Psychiatric: Normal Affect, Normal Mood Skin Exam: Warm, Dry, Intact Course - Vital Signs Last Recorded V/S: Last Vital Signs Temp 36.6 C 11/25/18 12:12 Pulse 83 11/25/18 12:12 Resp 12 11/25/18 12:12 BP 158/100 H 11/25/18 12:12 Pulse Ox 98 11/25/18 12:12 - Orders/Labs/Meds Orders: Active Orders 24 hr Category Date Time Status CLOSTRIDIUM DIFFICILE TOX RFLX [MREF] Stat Lab 11/25/18 12:45 Received MISC TEST Routine Lab 11/25/18 12:56 Received STOOL CULTURE/SHIGA TOXIN [MREF] Stat Lab 11/25/18 12:45 Received Isolation [COMM] Stat Oth 11/25/18 12:42 Ordered Departure - Departure Time of Disposition: 12:54 Disposition: Home, Self-Care 01 Condition: Good Clinical Impression: Diarrhea Qualifiers: Diarrhea type: unspecified type Qualified Code(s): R19.7 - Diarrhea, unspecified - Discharge Information *PRESCRIPTION DRUG MONITORING PROGRAM REVIEWED*: Not Applicable *COPY OF PRESCRIPTION DRUG MONITORING REPORT IN PATIENT LYNDA: Not Applicable Instructions: Diarrhea, Adult Referrals: Peri Farrell MD [Primary Care Provider] - Forms: ED Department Discharge Additional Instructions: 1. stool samples have been sent. Results will hopefully start returning Beginning Tuesday or Tuesday 2. rest 3. increase your fiber intake and can try bulk forming OTC medications 4. Follow up with PCP next week for further medication management 5. Call with any questions or concerns - Problem List Review Problem List Initiated/Reviewed/Updated: Yes - My Orders Last 24 Hours: My Active Orders 11/25/18 12:42 Isolation [COMM] Stat 11/25/18 12:45 CLOSTRIDIUM DIFFICILE TOX RFLX [MREF] Stat STOOL CULTURE/SHIGA TOXIN [MREF] Stat 11/25/18 12:56 MISC TEST Routine - Assessment/Plan Last 24 Hours: My Active Orders 11/25/18 12:42 Isolation [COMM] Stat 11/25/18 12:45 CLOSTRIDIUM DIFFICILE TOX RFLX [MREF] Stat STOOL CULTURE/SHIGA TOXIN [MREF] Stat 11/25/18 12:56 MISC TEST Routine Assessment:: 1. diarrhea Plan: 1. stool samples collected 2. Did have a discussion at great lengths regarding patients recent hospitalization and extensive antibiotic use along with recent medications for C. difficile. Did discuss with the patient we will complete a stool sample for she does not feel that she's had a stool sample last 30 days. Is not advisable at this time to start patient on antibiotics diaz to her recent significant antibiotic use. Patient is [id number] and has had no changes in the diarrhea in the course of last 30 days. Patient is instructed to follow-up with her PCP at the beginning of the week for further evaluation and study results as necessary. Is also advisable that it the patient continues to have loose stools that she be seen by specialty regarding them. 3. Patient is agreeable with the plan and feels that it is adequate. Education provided the patient and the patient's mother who is present at the bedside. 4. All questions and concerns addressed prior to discharge
== END 2018-11-25 13:02 | disposition home or self-care (01) ==
LOC: VM.ED 12:12
DX: R19.7 Diarrhea, unspecified (principal); I11.0 Hypertensive heart disease with heart failure; I50.9 Heart failure, unspecified; F41.9 Anxiety disorder, unspecified; F32.9 Major depressive disorder, single episode, unspecified; K21.9 Gastro-esophageal reflux disease without esophagitis; E10.9 Type 1 diabetes mellitus without complications; I25.10 Atherosclerotic heart disease of native coronary artery without angina pectoris; Z79.4 Long term (current) use of insulin; Z79.899 Other long term (current) drug therapy; Z88.1 Allergy status to other antibiotic agents; Z88.6 Allergy status to analgesic agent; Z88.2 Allergy status to sulfonamides; Z88.8 Allergy status to other drugs, medicaments and biological substances
CPT/HCPCS: 87045; 87046; 87147; 87324; 87493; 87899; 99283-GF; 99284

== ENCOUNTER 2018-11-26 22:42 | Emergency (ER) | payer MEDICARE, MEDICAID ==
[2018-11-26] MEDS ORDERED: Sodium Chloride 0.9% 10 ML Syringe FLUSH PRN (22:55)
[2018-11-26] MEDS ORDERED: Sodium Chloride 0.9% 1,000 ML IV ONE (22:58)
[2018-11-26] MEDS ORDERED: Ondansetron 4 MG/2 ML SDV IVPUSH ONE (23:03)
[2018-11-26] MEDS ORDERED: Iopamidol 612 MG/ML 100 ML Bottle IVPUSH ONE (23:26)
--- NOTE | 2018-11-26 23:29 | EDM.PDOC ---
ED HPI GENERAL MEDICAL PROBLEM - General Chief Complaint: Lower Extremity Injury/Pain Stated Complaint: WEAKNESS Time Seen by Provider: 11/26/18 22:42 Source of Information: Reports: Patient, EMS, Family - History of Present Illness INITIAL COMMENTS - FREE TEXT/NARRATIVE: Pt. presents to ER with complaints of nausea, diarrhea, weakness, hyperglycemia , and fall. Pt. was seen in the ER yesterday with similar symptoms and was seen by Zayra Daugherty NP. Pt. states that she has been having diarrhea for approx. 2 weeks. She states that her blood sugars have been running high and were over 400mg/dl during the day today. She denies any fever or chills. Pt. has a history of ESRD and does dialysis MWF. She is due for her run tomorrow. Pt. states that she also has a history of C-diff but states that this was treated with oral vanco. This was several years ago. Pt. was hospitalized from June until the end of October with a long, complicated, multi-factorial course including sepsis and respiratory failure. She has a trach. According to patient, she really has been having diarrhea since discharge. Pt. states that she has felt weak today as well. She states that she fell onto her knees when she was getting out of bed earlier this evening, stating her "legs gave out". She is experiencing bilateral knee discomfort post fall. Pt. states that she has been chills. She is anuric but denies any urinary symptoms. Denies any known fever. No chest pain or shortness of breath. Onset Date: 11/26/18 Location: Reports: Lower Extremity, Left, Lower Extremity, Right Quality: Reports: Ache Severity: Moderate - Related Data Allergies Allergy/AdvReac Type Severity Reaction Status Date / Time propoxyphene [From Darvon-N] Allergy Severe Hives Verified 11/25/18 18:14 heparin AdvReac Severe Other Verified 11/25/18 18:14 amoxicillin AdvReac Unknown Other Verified 11/25/18 18:14 clonidine AdvReac Unknown Other Verified 11/25/18 18:14 codeine AdvReac Unknown Nausea Verified 11/25/18 18:14 ketorolac AdvReac Unknown Nausea Verified 11/25/18 18:14 sulfamethoxazole AdvReac Unknown Nausea and Verified 11/25/18 18:14 [From Bactrim] Vomiting tramadol AdvReac Unknown Nausea Verified 11/25/18 18:14 trimethoprim [From Bactrim] AdvReac Unknown Nausea and Verified 11/25/18 18:14 Vomiting Home Meds: Home Meds Acetaminophen 1,000 mg PO Q6H PRN 12/30/17 [History] Aspirin 81 mg PO DAILY 12/30/17 [History] Calcium Acetate [PhosLo] 2,001 mg PO TIDMEALS 12/30/17 [History] Calcium Carbonate [Tums Extra Strength] 750 mg PO TID PRN 12/30/17 [History] Clopidogrel [Plavix] 75 mg PO DAILY 12/30/17 [History] Cyclobenzaprine [Flexeril] 5 - 10 mg PO BEDTIME PRN 12/30/17 [History] DULoxetine [Cymbalta] 60 mg PO DAILY 12/30/17 [History] Dextrose [Glucose] 16 gm PO ONETIME PRN 12/30/17 [History] Doxercalciferol 0 mcg IV ASDIRECTED 12/30/17 [History] Ergocalciferol (Vitamin D2) [Drisdol] 50,000 unit PO Q7D 12/30/17 [History] Glucagon,Human Recombinant [Glucagon Emergency Kit] 1 mg IV ASDIRECTED PRN 12/30 [History] Insulin Degludec [Tresiba Flextouch U-100] 8 units SUBCUT DAILY 12/30/17 [ History] Lisinopril 20 mg PO BID 12/30/17 [History] Metoprolol Tartrate 50 mg PO BID 12/30/17 [History] Midodrine 5 mg PO TID PRN 12/30/17 [History] Nitroglycerin [Nitrostat] 0.4 mg SL ASDIRECTED PRN MDD 3 doses in 15 minutes [History] Ondansetron [Zofran ODT] 4 mg PO Q4H PRN 12/30/17 [History] Pravastatin Sodium [Pravachol] 40 mg PO BEDTIME 12/30/17 [History] Pregabalin [Lyrica] 300 mg PO BEDTIME 12/30/17 [History] amLODIPine Besylate [Amlodipine Besylate] 5 mg PO BID 12/30/17 [History] Lacosamide [Vimpat] 100 mg PO BID 02/23/18 [History] levETIRAcetam [Keppra] 1,000 mg PO BID 02/23/18 [History] levETIRAcetam [Keppra] 500 mg PO MOWEFR@08 02/23/18 [History] Darbepoetin Horace in Polysorbat [Aranesp] 0 dose IV Q14D 02/24/18 [History] Phenytoin Sodium Extended 300 mg PO BEDTIME 02/24/18 [History] Sod Ferric Gluc Complex/Suc [Ferrlecit 62.5 mg/5 ml Vial] 0 dose IV Q14D [History] Hydrocodone/Acetaminophen [Hydrocodon-Acetaminophn 10-325] 1 tab PO Q6H PRN #0 03/06/18 [Rx] Insulin Lispro [Humalog] 1 unit SUBCUT BEDTIME PRN #1 pen 03/06/18 [Rx] Insulin Lispro [Humalog] 3 unit SUBCUT BEDTIME PRN #1 pen 03/06/18 [Rx] Insulin Lispro [Humalog] 5 unit SUBCUT TIDMEALS #1 pen 03/06/18 [Rx] Past Medical History Other HEENT History: 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 dysthymic disorder Endocrine/Metabolic History: Reports: Diabetes, Type I, Vitamin D Deficiency Hematologic History: Reports: Anemia Other Hematologic History: hypocalcemic - Infectious Disease History Infectious Disease History: Reports: C-Difficile - Past Surgical History HEENT Surgical History: Reports: Eye Surgery Cardiovascular Surgical History: Reports: Coronary Artery Bypass, Coronary Artery Stent Other Cardiovascular Surgeries/Procedures: angioplasty, bypass 10/24 GI Surgical History: Reports: Cholecystectomy, Colonoscopy Female Surgical History: Reports: Lithotripsy/ESWL, Tubal Ligation Musculoskeletal Surgical History: Reports: ORIF, Other (See Below) Other Musculoskeletal Surgeries/Procedures:: left foot surgery approx. 2 wks ago Social & Family History - Family History Family Medical History: Noncontributory - Caffeine Use Caffeine Use: Reports: Coffee, Soda, Tea ED ROS GENERAL - Review of Systems Review Of Systems: See Below Constitutional: Reports: Weakness HEENT: Reports: No Symptoms Respiratory: Reports: No Symptoms Cardiovascular: Reports: No Symptoms Endocrine: Reports: No Symptoms GI/Abdominal: Reports: Diarrhea, Nausea : Reports: No Symptoms Musculoskeletal: Reports: No Symptoms Skin: Reports: No Symptoms Neurological: Reports: No Symptoms Psychiatric: Reports: No Symptoms Hematologic/Lymphatic: Reports: No Symptoms Immunologic: Reports: No Symptoms ED EXAM, GENERAL - Physical Exam Exam: See Below Exam Limited By: No Limitations General Appearance: Alert, WD/WN, No Apparent Distress Respiratory/Chest: No Respiratory Distress, Lungs Clear, Normal Breath Sounds, No Accessory Muscle Use, Chest Non-Tender Cardiovascular: Normal Peripheral Pulses, Regular Rate, Rhythm, No Edema, No Gallop, No JVD, No Murmur, No Rub GI/Abdominal: Soft, Non-Tender, No Organomegaly, No Distention, No Mass (Female) Exam: Deferred Rectal (Female) Exam: Deferred Back Exam: Normal Inspection, Full Range of Motion Psychiatric: Normal Affect, Normal Mood Skin Exam: Warm, Dry, Intact, Normal Color, No Rash Lymphatic: No Adenopathy Course - Orders/Labs/Meds Orders: Active Orders 24 hr Category Date Time Status Abdomen Pelvis wo Cont [CT] Stat Exams 11/26/18 23:01 Ordered Knee 3V Bi [CR] Stat Exams 11/26/18 23:00 Ordered CULTURE BLOOD [BC] Stat Lab 11/26/18 23:41 Results CULTURE BLOOD [BC] Stat Lab 11/26/18 23:56 Received UA W/MICROSCOPIC [URIN] Stat Lab 11/26/18 22:56 Ordered Sodium Chloride 0.9% [Saline Flush] Med 11/26/18 22:55 Active 10 ml FLUSH ASDIRECTED PRN Blood Culture x2 Reflex Set [OM.PC] Stat Oth 11/26/18 22:57 Ordered Peripheral IV Insertion Adult [OM.PC] Routine Oth 11/26/18 22:56 Ordered Medication Orders Sodium Chloride (Saline Flush) 10 ml FLUSH ASDIRECTED PRN PRN Reason: Keep Vein Open Labs: Laboratory Tests 11/26/18 11/26/18 11/26/18 Range/Units 23:41 23:41 23:41 WBC 7.1 (4.0-10.0) x10^3/uL RBC 3.75 L (4.00-5.50) x10^6/uL Hgb 12.0 (12.0-16.0) g/dL Hct 36.8 (33.0-47.0) % MCV 98.1 H D (78.0-93.0) fL MCH 32.0 (26.0-32.0) pg MCHC 32.6 (32.0-36.0) g/dL RDW Coeff of Sammie 16.7 H (10.0-15.0) % Plt Count 197 (130-400) x10^3/uL Neut % (Auto) 72.3 (50.0-80.0) % Lymph % (Auto) 14.9 L (25.0-50.0) % Foster % (Auto) 11.1 H (2.0-11.0) % Eos % (Auto) 1.1 (0.0-4.0) % Baso % (Auto) 0.6 (0.2-1.2) % PT 10.6 (10.0-12.8) SEC INR 0.9 L (2.0-3.5) Sodium 143 (136-145) mmol/L Potassium 5.5 H (3.5-5.1) mmol/L Chloride 109 H (98-107) mmol/L Carbon Dioxide 13 L D (21-32) mmol/L Anion Gap 26.5 H (10-20) mmol/L BUN 102 H* D (7-18) mg/dL Creatinine 11.9 H* D (0.55-1.02) mg/dL Est Cr Clr Drug Dosing TNP Estimated GFR (MDRD) 4 Glucose 108 H (74-106) mg/dL Lactic Acid (0.4-2.0) mmol/L Calcium 7.8 L D (8.5-10.1) mg/dL Corrected Calcium 8.36 L D (8.5-10.1) mg/dL Phosphorus 8.2 H (2.6-4.7) mg/dL Magnesium 2.6 H (1.8-2.4) mg/dL Total Bilirubin 0.5 (0.2-1.0) mg/dL AST 32 (15-37) U/L ALT 43 (14-59) U/L Alkaline Phosphatase 267 H (46-116) U/L C-Reactive Protein < 0.2 (<=0.9) mg/dL Total Protein 6.9 (6.4-8.2) g/dL Albumin 3.3 L (3.4-5.0) g/dL Globulin 3.6 Albumin/Globulin Ratio 0.92 TSH, Ultra Sensitive 1.881 (0.358-3.74) uIU/mL 11/26/18 Range/Units 23:41 WBC (4.0-10.0) x10^3/uL RBC (4.00-5.50) x10^6/uL Hgb (12.0-16.0) g/dL Hct (33.0-47.0) % MCV (78.0-93.0) fL MCH (26.0-32.0) pg MCHC (32.0-36.0) g/dL RDW Coeff of Sammie (10.0-15.0) % Plt Count (130-400) x10^3/uL Neut % (Auto) (50.0-80.0) % Lymph % (Auto) (25.0-50.0) % Foster % (Auto) (2.0-11.0) % Eos % (Auto) (0.0-4.0) % Baso % (Auto) (0.2-1.2) % PT (10.0-12.8) SEC INR (2.0-3.5) Sodium (136-145) mmol/L Potassium (3.5-5.1) mmol/L Chloride (98-107) mmol/L Carbon Dioxide (21-32) mmol/L Anion Gap (10-20) mmol/L BUN (7-18) mg/dL Creatinine (0.55-1.02) mg/dL Est Cr Clr Drug Dosing Estimated GFR (MDRD) Glucose (74-106) mg/dL Lactic Acid 0.5 (0.4-2.0) mmol/L Calcium (8.5-10.1) mg/dL Corrected Calcium (8.5-10.1) mg/dL Phosphorus (2.6-4.7) mg/dL Magnesium (1.8-2.4) mg/dL Total Bilirubin (0.2-1.0) mg/dL AST (15-37) U/L ALT (14-59) U/L Alkaline Phosphatase (46-116) U/L C-Reactive Protein (<=0.9) mg/dL Total Protein (6.4-8.2) g/dL Albumin (3.4-5.0) g/dL Globulin Albumin/Globulin Ratio TSH, Ultra Sensitive (0.358-3.74) uIU/mL Meds: Medications Generic Name Dose Route Start Last Admin Trade Name Freq PRN Reason Stop Dose Admin Sodium Chloride 10 ml 11/26/18 22:55 Saline Flush FLUSH ASDIRECTED PRN Keep Vein Open Discontinued Medications Generic Name Dose Route Start Last Admin Trade Name Freq PRN Reason Stop Dose Admin Sodium Chloride 1,000 mls @ 1,000 mls/hr 11/26/18 22:58 Normal Saline IV 11/26/18 23:57 .BOLUS ONE Iopamidol 100 ml 11/26/18 23:26 Isovue-300 (61%) IVPUSH 11/26/18 23:27 ONETIME ONE Ondansetron HCl 4 mg 11/26/18 23:03 Zofran IVPUSH 11/26/18 23:04 ONETIME ONE Departure - Departure Time of Disposition: 00:45 Disposition: DC/Tfer to [facility] 02 Clinical Impression: ESRD (end stage renal disease) on dialysis Diarrhea Qualifiers: Diarrhea type: unspecified type Qualified Code(s): R19.7 - Diarrhea, unspecified - Discharge Information Referrals: Peri Farrell MD [Primary Care Provider] - Forms: ED Department Discharge, Interfacility Transfer EMTALA - Problem List Review Problem List Initiated/Reviewed/Updated: Yes - My Orders Last 24 Hours: My Active Orders 11/26/18 22:55 Sodium Chloride 0.9% [Saline Flush] 10 ml FLUSH ASDIRECTED PRN 11/26/18 22:56 UA W/MICROSCOPIC [URIN] Stat Peripheral IV Insertion Adult [OM.PC] Routine 11/26/18 22:57 Blood Culture x2 Reflex Set [OM.PC] Stat 11/26/18 23:00 Knee 3V Bi [CR] Stat 11/26/18 23:01 Abdomen Pelvis wo Cont [CT] Stat 11/26/18 23:41 CULTURE BLOOD [BC] Stat 11/26/18 23:56 CULTURE BLOOD [BC] Stat - Assessment/Plan Last 24 Hours: My Active Orders 11/26/18 22:55 Sodium Chloride 0.9% [Saline Flush] 10 ml FLUSH ASDIRECTED PRN 11/26/18 22:56 UA W/MICROSCOPIC [URIN] Stat Peripheral IV Insertion Adult [OM.PC] Routine 11/26/18 22:57 Blood Culture x2 Reflex Set [OM.PC] Stat 11/26/18 23:00 Knee 3V Bi [CR] Stat 11/26/18 23:01 Abdomen Pelvis wo Cont [CT] Stat 11/26/18 23:41 CULTURE BLOOD [BC] Stat 11/26/18 23:56 CULTURE BLOOD [BC] Stat Plan: After numerous attempts, peripheral vascular access was unobtainable. Pt. was not in extremis, and did not require accessing her dialysis port, emergent central line placement, or IO. Pt. is due for dialysis tomorrow, and will require hospitalization and fluids due to her diarrhea, so will be transferred to a facility that can do inpatient dialyisis. Stool studies were obtained yesterday and are pending (are sendout at our facility). I spoke with Dr. Maloney who accepts the patient in transfer. Knee radiographs are being obtained at this time. See report.
[2018-11-27 00:17] LABS: ANION GAP 26.5 mmol/L (10-20); CHLORIDE,CL 109 mmol/L (98-107); SODIUM,NA 143 mmol/L (136-145)
--- NOTE | 2018-11-27 08:49 | CR ---
[id number] RAD/RAD Knee Bilateral 3V EXAM: RIGHT KNEE 2 VIEWS, LEFT KNEE 3 VIEWS INDICATION: Fall onto knees. COMPARISON: None. DISCUSSION: There is bilateral soft tissue swelling. On the right there is a small to moderate joint effusion and on the left there is a minimal effusion. Osteopenia. Mild osteoarthritis of both knees. Arterial calcifications. No acute fracture or dislocation is identified. IMPRESSION: 1. Soft tissue swelling. Right greater than left joint effusions. No acute fracture identified. Jose Lau MD 11/27/18 0848 Thank you for allowing us to participate in the care of your patient.
== END 2018-11-27 01:05 | disposition short-term general hospital (02) ==
LOC: VM.ED 22:42 → SUPCPDRO 22:42 → VM.ED 11-27 01:05
DX: R19.7 Diarrhea, unspecified (principal); I13.2 Hypertensive heart and chronic kidney disease with heart failure and with stage 5 chronic kidney disease, or end stage renal disease; I50.9 Heart failure, unspecified; N18.6 End stage renal disease; Z99.2 Dependence on renal dialysis; E10.22 Type 1 diabetes mellitus with diabetic chronic kidney disease; E10.40 Type 1 diabetes mellitus with diabetic neuropathy, unspecified; I25.2 Old myocardial infarction; Z95.5 Presence of coronary angioplasty implant and graft; I25.10 Atherosclerotic heart disease of native coronary artery without angina pectoris; Z88.1 Allergy status to other antibiotic agents; F41.9 Anxiety disorder, unspecified; F32.9 Major depressive disorder, single episode, unspecified; Z95.1 Presence of aortocoronary bypass graft; Z90.49 Acquired absence of other specified parts of digestive tract; Z98.51 Tubal ligation status; Z79.82 Long term (current) use of aspirin; Z79.899 Other long term (current) drug therapy; Z88.2 Allergy status to sulfonamides; Z88.6 Allergy status to analgesic agent; Z88.5 Allergy status to narcotic agent; Z88.8 Allergy status to other drugs, medicaments and biological substances
CPT/HCPCS: 36415; 73562-50; 80053; 83605; 83735; 84100; 84443; 85025; 85610; 86140; 87040; 99284-GF; 99285-25

== ENCOUNTER 2019-01-09 11:38 | Observation (INO) | payer MEDICARE, MEDICAID ==
[2019-01-09] MEDS ORDERED: Sodium Chloride 0.9% 10 ML Syringe FLUSH PRN ×2 (11:59→15:34)
--- NOTE | 2019-01-09 12:29 | EDM.PDOC ---
ED HPI GENERAL MEDICAL PROBLEM - General Chief Complaint: Neuro Symptoms/Deficits Stated Complaint: SEIZURE Time Seen by Provider: 01/09/19 11:59 Source of Information: Reports: Family, Provider History Limitations: Reports: No Limitations - History of Present Illness INITIAL COMMENTS - FREE TEXT/NARRATIVE: Patient arrives with her mother after suffering a second seizure today. She had a seizure at home, EMS was called and found her blood glucose to be 42. She did have some soda at that time but refused a peanut butter sandwich per her mother. She was at the clinic waiting for an appointment when she had a second seizure and has been brought over in a wheelchair. She is to be taking keppra, dilantin, and lacosamide for seizure control and has stopped taking all these medications several weeks ago. She also admits to smoking daily marijuana that she got in the mail. Has also been overusing her remeron and is out of this at this time, though the prescription was to last until January. When asked regarding medical procedures, history, medication use, she did let TYLER Denis that she felt like she is just done with doing everything she needs to. Dialysis is scheduled in [place] tomorrow at 1230 in the afternoon. Onset: Today Duration: Intermittent Location: Reports: Generalized - Related Data Allergies Allergy/AdvReac Type Severity Reaction Status Date / Time propoxyphene [From Darvon-N] Allergy Severe Hives Verified 11/27/18 01:58 heparin AdvReac Severe Other Verified 11/27/18 01:58 amoxicillin AdvReac Unknown Other Verified 11/27/18 01:58 clonidine AdvReac Unknown Other Verified 11/27/18 01:58 codeine AdvReac Unknown Nausea Verified 11/27/18 01:58 ketorolac AdvReac Unknown Nausea Verified 11/27/18 01:58 sulfamethoxazole AdvReac Unknown Nausea and Verified 11/27/18 01:58 [From Bactrim] Vomiting tramadol AdvReac Unknown Nausea Verified 11/27/18 01:58 trimethoprim [From Bactrim] AdvReac Unknown Nausea and Verified 11/27/18 01:58 Vomiting Home Meds: Home Meds Acetaminophen 1,000 mg PO Q6H PRN 12/30/17 [History] Aspirin 81 mg PO DAILY 12/30/17 [History] Calcium Acetate [PhosLo] 2,001 mg PO TIDMEALS 12/30/17 [History] Calcium Carbonate [Tums Extra Strength] 750 mg PO TID PRN 12/30/17 [History] Clopidogrel [Plavix] 75 mg PO DAILY 12/30/17 [History] Cyclobenzaprine [Flexeril] 5 - 10 mg PO BEDTIME PRN 12/30/17 [History] DULoxetine [Cymbalta] 60 mg PO DAILY 12/30/17 [History] Dextrose [Glucose] 16 gm PO ONETIME PRN 12/30/17 [History] Doxercalciferol 0 mcg IV ASDIRECTED 12/30/17 [History] Ergocalciferol (Vitamin D2) [Drisdol] 50,000 unit PO Q7D 12/30/17 [History] Glucagon,Human Recombinant [Glucagon Emergency Kit] 1 mg IV ASDIRECTED PRN 12/30 [History] Insulin Degludec [Tresiba Flextouch U-100] 8 units SUBCUT DAILY 12/30/17 [ History] Lisinopril 20 mg PO BID 12/30/17 [History] Metoprolol Tartrate 50 mg PO BID 12/30/17 [History] Midodrine 5 mg PO TID PRN 12/30/17 [History] Nitroglycerin [Nitrostat] 0.4 mg SL ASDIRECTED PRN MDD 3 doses in 15 minutes [History] Ondansetron [Zofran ODT] 4 mg PO Q4H PRN 12/30/17 [History] Pravastatin Sodium [Pravachol] 40 mg PO BEDTIME 12/30/17 [History] Pregabalin [Lyrica] 300 mg PO BEDTIME 12/30/17 [History] amLODIPine Besylate [Amlodipine Besylate] 5 mg PO BID 12/30/17 [History] Lacosamide [Vimpat] 100 mg PO BID 02/23/18 [History] levETIRAcetam [Keppra] 1,000 mg PO BID 02/23/18 [History] levETIRAcetam [Keppra] 500 mg PO MOWEFR@08 02/23/18 [History] Darbepoetin Horace in [place]ysorbat [Aranesp] 0 dose IV Q14D 02/24/18 [History] Phenytoin Sodium Extended 300 mg PO BEDTIME 02/24/18 [History] Sod Ferric Gluc Complex/Suc [Ferrlecit 62.5 mg/5 ml Vial] 0 dose IV Q14D [History] Hydrocodone/Acetaminophen [Hydrocodon-Acetaminophn 10-325] 1 tab PO Q6H PRN #0 03/06/18 [Rx] Insulin Lispro [Humalog] 1 unit SUBCUT BEDTIME PRN #1 pen 03/06/18 [Rx] Insulin Lispro [Humalog] 3 unit SUBCUT BEDTIME PRN #1 pen 03/06/18 [Rx] Insulin Lispro [Humalog] 5 unit SUBCUT TIDMEALS #1 pen 03/06/18 [Rx] Past Medical History Other HEENT History: 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 dysthymic disorder Endocrine/Metabolic History: Reports: Diabetes, Type I, Vitamin D Deficiency Hematologic History: Reports: Anemia Other Hematologic History: hypocalcemic - Infectious Disease History Infectious Disease History: Reports: C-Difficile - Past Surgical History HEENT Surgical History: Reports: Eye Surgery Cardiovascular Surgical History: Reports: Coronary Artery Bypass, Coronary Artery Stent Other Cardiovascular Surgeries/Procedures: angioplasty, bypass 10/24 GI Surgical History: Reports: Cholecystectomy, Colonoscopy Female Surgical History: Reports: Lithotripsy/ESWL, Tubal Ligation Musculoskeletal Surgical History: Reports: ORIF, Other (See Below) Other Musculoskeletal Surgeries/Procedures:: left foot surgery approx. 2 wks ago Social & Family History - Family History Family Medical History: Noncontributory - Caffeine Use Caffeine Use: Reports: Coffee, Soda, Tea ED ROS GENERAL - Review of Systems Review Of Systems: Unable To Obtain (patient is post ictal and not responding to questions, answers by her mother as best she can) Constitutional: Reports: No Symptoms HEENT: Reports: No Symptoms Respiratory: Reports: Cough (coughs during the ) Cardiovascular: Reports: No Symptoms Endocrine: Reports: No Symptoms GI/Abdominal: Reports: Diarrhea : Reports: No Symptoms Musculoskeletal: Reports: No Symptoms Skin: Reports: No Symptoms Neurological: Reports: Seizure Psychiatric: Reports: Depression Hematologic/Lymphatic: Reports: No Symptoms Immunologic: Reports: No Symptoms - Physical Exam Exam: See Below Exam Limited By: Altered Mental Status General Appearance: Alert, WD/WN, Mild Distress Eye Exam: Bilateral Eye: EOMI, Normal Inspection Ears: Normal TMs Nose: Normal Inspection, Normal Mucosa, No Blood Throat/Mouth: Other (patient refuses to open mouth) Head Exam: Atraumatic, Normocephalic Neck: Other (trach is inserted and is patent) Respiratory/Chest: No Respiratory Distress, Lungs Clear, Normal Breath Sounds, No Accessory Muscle Use, Chest Non-Tender Cardiovascular: Normal Peripheral Pulses, Regular Rate, Rhythm, No Edema, Systolic Murmur, Other (right sided dual lumen dialysis catheter) GI/Abdominal: Normal Bowel Sounds, Soft, Non-Tender, No Organomegaly, No Distention, No Abnormal Bruit, No Mass Neuro Exam (Abbreviated): Alert, Disoriented, Slow to Respond Back Exam: Normal Inspection, Full Range of Motion, NT Extremities: Normal Inspection, Normal Range of Motion, No Pedal Edema, Normal Capillary Refill Psychiatric: Depressed Mood, Flat Affect Skin Exam: Other (multiple areas of AV fistula insertion sites. These are no longer functional) Course - Orders/Labs/Meds Orders: Active Orders 24 hr Category Date Time Status Chest 1V Frontal [CR] Stat Exams 01/09/19 11:59 Ordered CBC WITH AUTO DIFF [HEME] Stat Lab 01/09/19 11:59 Ordered COMPREHENSIVE METABOLIC PN,CMP [CHEM] Stat Lab 01/09/19 11:59 Ordered MAGNESIUM [CHEM] Stat Lab 01/09/19 12:00 Ordered Sodium Chloride 0.9% [Saline Flush] Med 01/09/19 11:59 Ordered 10 ml FLUSH ASDIRECTED PRN Saline Lock Insert [OM.PC] Routine Oth 01/09/19 11:59 Ordered Medication Orders Sodium Chloride (Saline Flush) 10 ml FLUSH ASDIRECTED PRN PRN Reason: Keep Vein Open Labs: Laboratory Tests 01/09/19 Range/Units 11:44 POC Glucose 290 H (74-106) mg/dL Meds: Medications Generic Name Dose Route Start Last Admin Trade Name Martha PRN Reason Stop Dose Admin Sodium Chloride 10 ml 01/09/19 11:59 Saline Flush FLUSH ASDIRECTED PRN Keep Vein Open Departure - Departure Time of Disposition: 14:00 Disposition: Refer to Observation Condition: Good Clinical Impression: Seizure - Discharge Information *PRESCRIPTION DRUG MONITORING PROGRAM REVIEWED*: Not Applicable *COPY OF PRESCRIPTION DRUG MONITORING REPORT IN PATIENT LYNDA: Not Applicable Instructions: Seizure, Adult, [id number] Forms: ED Department Discharge Additional Instructions: Plan You are having seizures due to not administering your anti convulsant medications I did prescribe you the starting doses and I do expect you to follow up with Dr. Farrell in one week so she can then step up your dosages Your Mirtazapine will not be refilled as it was to have lasted until February 04 Stay well hydrated Call or return if you have any additional questions or concerns ED Communication - ED Communication Date/Time Date: 01/09/19 Time Called: 14:05 - Discussed Case With (1) Discussed Case With (1): Other Provider (I did discuss case with Dr. Farrell, patient's PCP) - Problem List & Annotations (1) Seizure SNOMED Code(s): 33944562 Code(s): R56.9 - UNSPECIFIED CONVULSIONS Status: Chronic Priority: Medium - Problem List Review Problem List Initiated/Reviewed/Updated: Yes - My Orders Last 24 Hours: My Active Orders 01/09/19 11:59 Chest 1V Frontal [CR] Stat CBC WITH AUTO DIFF [HEME] Stat COMPREHENSIVE METABOLIC PN,CMP [CHEM] Stat Sodium Chloride 0.9% [Saline Flush] 10 ml FLUSH ASDIRECTED PRN Saline Lock Insert [OM.PC] Routine 01/09/19 12:00 MAGNESIUM [CHEM] Stat - Assessment/Plan Last 24 Hours: My Active Orders 01/09/19 11:59 Chest 1V Frontal [CR] Stat CBC WITH AUTO DIFF [HEME] Stat COMPREHENSIVE METABOLIC PN,CMP [CHEM] Stat Sodium Chloride 0.9% [Saline Flush] 10 ml FLUSH ASDIRECTED PRN Saline Lock Insert [OM.PC] Routine 01/09/19 12:00 MAGNESIUM [CHEM] Stat Assessment:: seizure Plan: Patient will be admitted due to recurrent seizures. Original plan to D/C home, until an additional seizure was noted. Patient given 2.5 mg IV valium. Will gently hydrate, schedule prn valium for any additional seizure activity. Start oral anti convulsant medications. Plan to discharge tomorrow AM so she can attend dialysis in [place]. Consult with case management/social work regarding possible counseling or hospice options. Recheck labs in AM.
[2019-01-09 12:43] LABS: CHLORIDE,CL 94 mmol/L (98-107); SODIUM,NA 138 mmol/L (136-145)
[2019-01-09] MEDS ORDERED: Ondansetron 4 MG/2 ML SDV IVPUSH ONE (12:54)
--- NOTE | 2019-01-09 14:30 | CR ---
[id number] RAD/RAD Chest PA or AP 1V EXAM: FRONTAL CHEST INDICATION: Cough. COMPARISON: August 25, 2018. DISCUSSION: The heart is mildly enlarged with borderline vascular congestion. Interval improved aeration of the right lower lobe. No definite infiltrates. Prior sternotomy. A right internal jugular introduced dialysis catheter is in satisfactory position tip overlying the right atrium. Interval placement of a tracheostomy appliance tip overlying the trachea. IMPRESSION: 1. Borderline central vascular congestion. No acute infiltrates are identified. Jose Lau MD 01/09/19 1422 Thank you for allowing us to participate in the care of your patient.
[2019-01-09] MEDS ORDERED: Ondansetron 4 MG/2 ML SDV IV PRN (15:05)
[2019-01-09] MEDS ORDERED: Metoprolol Tartrate 5 MG/5 ML SDV IVPUSH ONE (17:53)
--- NOTE | 2019-01-09 18:58 | PCM.DCSUM1 ---
Discharge Summary - Hospital Course Brief History: Patient admitted observation due to seizure activity. While here blood sugar continued to climb to over 600. I did institute insulin gtt, which has lowered her blood sugars to 455. Will reduce rate and stop the gtt while en route to [place] due to her brittle nature of diabetes and her tendency to be extremely labile in her levels. Blood pressure has also continued to increase. 10 mg labetalol IV ordered. Pulse persistantly in the 90's. Sinus. Has dialysis in [place] tomorrow. Will transfer due to the intricate nature of her disease and need for additional services that we do not provide. Dr. Daniels at [facility] in [place] was called and report was given. She has accepted patient in transfer. Patient's father was also informed of her transfer per her request. Diagnosis: Stroke: No - Discharge Data Discharge Date: 01/09/19 Discharge Disposition: DC/Tfer to Acute Hospital 02 Condition: Poor - Discharge Diagnosis/Problem(s) (1) Seizure SNOMED Code(s): 27433328 ICD Code: R56.9 - UNSPECIFIED CONVULSIONS Status: Chronic Priority: Medium Current Visit: No - Patient Summary/Data Consults: Consultations 01/09/19 15:05 Consult to Case Management/Transportation Coordinator [CONS] Routine - Discharge Plan *PRESCRIPTION DRUG MONITORING PROGRAM REVIEWED*: Not Applicable *COPY OF PRESCRIPTION DRUG MONITORING REPORT IN PATIENT LYNDA: Not Applicable Home Medications: Home Meds Aspirin 81 mg PO DAILY 12/30/17 [History] Calcium Acetate [PhosLo] 1,334 mg PO TIDMEALS 12/30/17 [History] Clopidogrel [Plavix] 75 mg PO DAILY 12/30/17 [History] Dextrose [Glucose] 16 gm PO ONETIME PRN 12/30/17 [History] Doxercalciferol 4 mcg IV MOWEFR 12/30/17 [History] Glucagon,Human Recombinant [Glucagon Emergency Kit] 1 mg IV ASDIRECTED PRN 12/30 [History] Insulin Degludec [Tresiba Flextouch U-100] 11 units SUBCUT DAILY 12/30/17 [ History] Midodrine 10 mg PO TID PRN 12/30/17 [History] Ondansetron [Zofran ODT] 4 mg PO Q6H PRN 12/30/17 [History] Pravastatin Sodium [Pravachol] 40 mg PO BEDTIME 12/30/17 [History] amLODIPine Besylate [Amlodipine Besylate] 5 mg PO BID 12/30/17 [History] Lacosamide [Vimpat] 100 mg PO BID 02/23/18 [History] levETIRAcetam [Keppra] 1,000 mg PO BID 02/23/18 [History] levETIRAcetam [Keppra] 500 mg PO MOWEFR 02/23/18 [History] Carvedilol 12.5 mg PO BIDMEALS 01/09/19 [History] Cholecalciferol (Vitamin D3) [D3 Dots] 2,000 unit PO DAILY 01/09/19 [History] ClonazePAM [KlonoPIN] 0.5 mg PO BEDTIME 01/09/19 [History] Darbepoetin Horace [Aranesp] 100 mcg SQ Q7D 01/09/19 [History] Hydrocodone/Acetaminophen [Davison 5-325 Tablet] 2 tab PO Q6H PRN 01/09/19 [ History] Insulin Lispro [Humalog] 0 unit SUBCUT ASDIRECTED 01/09/19 [History] Lanthanum Carbonate [Fosrenol] 500 mg PO QID 01/09/19 [History] Lisinopril 5 mg PO SUTUTHSA 01/09/19 [History] Mirtazapine 15 mg PO BEDTIME 01/09/19 [History] Pantoprazole Sodium 40 mg PO DAILY 01/09/19 [History] Phenytoin 100 mg PO BID 01/09/19 [History] Pregabalin [Lyrica] 25 mg PO TID 01/09/19 [History] Venlafaxine [Effexor XR] 75 mg PO DAILY 01/09/19 [History] hydrALAZINE [Apresoline] 25 mg PO ASDIRECTED 01/09/19 [History] Patient Handouts: Seizure, Adult, [id number] Forms: ED Department Discharge, Interfacility Transfer EMTALA Referrals: Peri Farrell MD [Primary Care Provider] - - Discharge Summary/Plan Comment DC Time >30 min.: Yes (Dr. Daniels was contacted and given thorough report as to the patient. ) - Patient Data Vitals - Most Recent: Last Vital Signs Temp 37.3 C 01/09/19 17:49 Pulse 90 01/09/19 17:49 Resp 19 01/09/19 17:49 BP 194/99 H 01/09/19 17:49 Pulse Ox 98 01/09/19 17:49 Weight - Most Recent: 56.699 kg I&O - Last 24 hours: Intake & Output 01/09/19 01/09/19 01/09/19 06:59 14:59 22:59 Intake Total 1200 Output Total 550 Balance 650 Lab Results - Last 24 hrs: Laboratory Results - last 24 hr 01/09/19 01/09/19 01/09/19 Range/Units 11:44 12:12 12:12 WBC 5.2 (4.0-10.0) x10^3/uL RBC 4.28 (4.00-5.50) x10^6/uL Hgb 13.2 (12.0-16.0) g/dL Hct 40.2 (33.0-47.0) % MCV 93.9 H D (78.0-93.0) fL MCH 30.8 (26.0-32.0) pg MCHC 32.8 (32.0-36.0) g/dL RDW Coeff of Sammie 12.9 (10.0-15.0) % Plt Count 159 (130-400) x10^3/uL Neut % (Auto) 81.8 H (50.0-80.0) % Lymph % (Auto) 10.1 L (25.0-50.0) % [place] % (Auto) 7.1 (2.0-11.0) % Eos % (Auto) 0.4 (0.0-4.0) % Baso % (Auto) 0.6 (0.2-1.2) % POC ABG pH (7.35-7.45) POC ABG pCO2 (35-45) mmHG POC ABG pO2 (80-105) mmHG POC ABG HCO3 (22-26) mmol/L POC ABG Total CO2 (23-27) mmol/L POC ABG O2 Sat (95-98) % POC ABG Base Excess (-2-3) mmol/L POC FiO2 Sodium 138 (136-145) mmol/L Potassium 4.0 D (3.5-5.1) mmol/L Chloride 94 L D (98-107) mmol/L Carbon Dioxide 26 D (21-32) mmol/L Anion Gap 22.0 H (10-20) mmol/L BUN 23 H D (7-18) mg/dL Creatinine 6.3 H* D (0.55-1.02) mg/dL Est Cr Clr Drug Dosing TNP Estimated GFR (MDRD) 8 Glucose 327 H (74-106) mg/dL POC Glucose 290 H (74-106) mg/dL Lactic Acid (0.4-2.0) mmol/L Calcium 8.3 L (8.5-10.1) mg/dL Corrected Calcium 8.46 L (8.5-10.1) mg/dL Phosphorus (2.6-4.7) mg/dL Magnesium 1.7 L (1.8-2.4) mg/dL Total Bilirubin 1.9 H (0.2-1.0) mg/dL AST 843 H (15-37) U/L ALT 333 H (14-59) U/L Alkaline Phosphatase 346 H (46-116) U/L Total Protein 7.6 (6.4-8.2) g/dL Albumin 3.8 (3.4-5.0) g/dL Globulin 3.8 Albumin/Globulin Ratio 1.00 01/09/19 01/09/19 01/09/19 Range/Units 15:06 16:39 17:30 WBC (4.0-10.0) x10^3/uL RBC (4.00-5.50) x10^6/uL Hgb (12.0-16.0) g/dL Hct (33.0-47.0) % MCV (78.0-93.0) fL MCH (26.0-32.0) pg MCHC (32.0-36.0) g/dL RDW Coeff of Sammie (10.0-15.0) % Plt Count (130-400) x10^3/uL Neut % (Auto) (50.0-80.0) % Lymph % (Auto) (25.0-50.0) % [place] % (Auto) (2.0-11.0) % Eos % (Auto) (0.0-4.0) % Baso % (Auto) (0.2-1.2) % POC ABG pH (7.35-7.45) POC ABG pCO2 (35-45) mmHG POC ABG pO2 (80-105) mmHG POC ABG HCO3 (22-26) mmol/L POC ABG Total CO2 (23-27) mmol/L POC ABG O2 Sat (95-98) % POC ABG Base Excess (-2-3) mmol/L POC FiO2 Sodium (136-145) mmol/L Potassium (3.5-5.1) mmol/L Chloride (98-107) mmol/L Carbon Dioxide (21-32) mmol/L Anion Gap (10-20) mmol/L BUN (7-18) mg/dL Creatinine (0.55-1.02) mg/dL Est Cr Clr Drug Dosing Estimated GFR (MDRD) Glucose (74-106) mg/dL POC Glucose > 500 H* > 500 H* (74-106) mg/dL Lactic Acid (0.4-2.0) mmol/L Calcium (8.5-10.1) mg/dL Corrected Calcium (8.5-10.1) mg/dL Phosphorus 7.0 H (2.6-4.7) mg/dL Magnesium (1.8-2.4) mg/dL Total Bilirubin (0.2-1.0) mg/dL AST (15-37) U/L ALT (14-59) U/L Alkaline Phosphatase (46-116) U/L Total Protein (6.4-8.2) g/dL Albumin (3.4-5.0) g/dL Globulin Albumin/Globulin Ratio 01/09/19 01/09/19 01/09/19 Range/Units 17:30 17:30 17:47 WBC (4.0-10.0) x10^3/uL RBC (4.00-5.50) x10^6/uL Hgb (12.0-16.0) g/dL Hct (33.0-47.0) % MCV (78.0-93.0) fL MCH (26.0-32.0) pg MCHC (32.0-36.0) g/dL RDW Coeff of Sammie (10.0-15.0) % Plt Count (130-400) x10^3/uL Neut % (Auto) (50.0-80.0) % Lymph % (Auto) (25.0-50.0) % [place] % (Auto) (2.0-11.0) % Eos % (Auto) (0.0-4.0) % Baso % (Auto) (0.2-1.2) % POC ABG pH 7.377 (7.35-7.45) POC ABG pCO2 32 L (35-45) mmHG POC ABG pO2 103 (80-105) mmHG POC ABG HCO3 19 L (22-26) mmol/L POC ABG Total CO2 20 L (23-27) mmol/L POC ABG O2 Sat 98 (95-98) % POC ABG Base Excess -6 L (-2-3) mmol/L POC FiO2 0.21 Sodium (136-145) mmol/L Potassium 4.7 (3.5-5.1) mmol/L Chloride (98-107) mmol/L Carbon Dioxide (21-32) mmol/L Anion Gap (10-20) mmol/L BUN (7-18) mg/dL Creatinine (0.55-1.02) mg/dL Est Cr Clr Drug Dosing Estimated GFR (MDRD) Glucose 632 H* (74-106) mg/dL POC Glucose (74-106) mg/dL Lactic Acid 3.4 H* (0.4-2.0) mmol/L Calcium (8.5-10.1) mg/dL Corrected Calcium (8.5-10.1) mg/dL Phosphorus (2.6-4.7) mg/dL Magnesium (1.8-2.4) mg/dL Total Bilirubin (0.2-1.0) mg/dL AST (15-37) U/L ALT (14-59) U/L Alkaline Phosphatase (46-116) U/L Total Protein (6.4-8.2) g/dL Albumin (3.4-5.0) g/dL Globulin Albumin/Globulin Ratio KAM Results - Last 24 hrs: Microbiology 01/09/19 17:40 Anaerobic Blood Culture - Final Blood - Venous - Lab Draw 01/09/19 17:30 Anaerobic Blood Culture - Final Blood - Venous Med Orders - Current: Current Medications Insulin Human Regular 100 unit (/ Sodium Chloride) 100 mls @ 5.66 mls/hr IV TITRATE JACK; Protocol Last Titration: 01/09/19 18:34 Dose: 0.09 units/kg/hr, 5.6 mls/hr Metoprolol Tartrate (Lopressor) 10 mg IVPUSH ONETIME ONE Stop: 01/09/19 17:54 Ondansetron HCl (Zofran) 8 mg IV Q4H PRN PRN Reason: Nausea/Vomiting Last Admin: 01/09/19 15:16 Dose: 8 mg Sodium Chloride (Saline Flush) 10 ml FLUSH ASDIRECTED PRN PRN Reason: Keep Vein Open Sodium Chloride (Saline Flush) 10 ml FLUSH ASDIRECTED PRN PRN Reason: Keep Vein Open Discontinued Medications Diazepam (Valium) 2.5 mg IVPUSH STAT ONE Stop: 01/09/19 13:36 Last Admin: 01/09/19 13:42 Dose: 2.5 mg Ondansetron HCl (Zofran) 4 mg IVPUSH ONETIME ONE Stop: 01/09/19 12:55 Last Admin: 01/09/19 13:00 Dose: 4 mg
== END 2019-01-09 19:15 | disposition short-term general hospital (02) ==
LOC: VM.ED 11:38 → VM.MS 13:52
PROVIDERS: ADMIT Nurse Practitioner Family; ATTEND Nurse Practitioner Family
DX: R56.9 Unspecified convulsions (principal); I25.10 Atherosclerotic heart disease of native coronary artery without angina pectoris; I11.0 Hypertensive heart disease with heart failure; I50.9 Heart failure, unspecified; K21.9 Gastro-esophageal reflux disease without esophagitis; G43.909 Migraine, unspecified, not intractable, without status migrainosus; F41.9 Anxiety disorder, unspecified; F32.9 Major depressive disorder, single episode, unspecified; E10.9 Type 1 diabetes mellitus without complications; E55.9 Vitamin D deficiency, unspecified; Z79.82 Long term (current) use of aspirin; Z79.899 Other long term (current) drug therapy; Z79.02 Long term (current) use of antithrombotics/antiplatelets; Z79.4 Long term (current) use of insulin; Z88.5 Allergy status to narcotic agent; Z88.0 Allergy status to penicillin; Z88.8 Allergy status to other drugs, medicaments and biological substances; Z88.2 Allergy status to sulfonamides
CPT/HCPCS: 36415; 36600; 71045; 80053; 82803; 82947; 82962; 83605; 83735; 84100; 84132; 85025; 87040; 96374; 96375; 96376; 99236; 99285; G0378; J2405; J3360

== ENCOUNTER 2019-05-10 09:36 | Emergency (ER) | payer MEDICARE, MEDICAID ==
--- NOTE | 2019-05-10 10:11 | EDM.PDOC ---
ED HPI GENERAL MEDICAL PROBLEM - General Chief Complaint: General Stated Complaint: Shortness of Breath / Headache Time Seen by Provider: 05/10/19 09:47 Source of Information: Reports: Patient History Limitations: Reports: No Limitations - History of Present Illness INITIAL COMMENTS - FREE TEXT/NARRATIVE: Pt. presents to ER with complaints of migraine headache. She states that she has had it for 3 days. Pt. states that has hemodialysis and was due for a dialysis run on Tue. but couldn't make it to [place] due to weather. She states that the senior bus didn't pick her up for her next trip. She didn't reschedule for the next day. She is scheduled for a run today at 1 PM. She states that she is mildly short of breath consistent with fluid overload. Denies any chest pain. No significant shortness of breath. No numbness/tingling in extremities. No difficulty with speech or ambulation. Onset: Today Onset Date: 05/10/19 Location: Reports: Head - Related Data Allergies Allergy/AdvReac Type Severity Reaction Status Date / Time propoxyphene [From Darvon-N] Allergy Severe Hives Verified 05/10/19 09:51 adhesive Allergy Unknown Other Verified 05/10/19 09:51 heparin AdvReac Severe Other Verified 05/10/19 09:51 amoxicillin AdvReac Unknown Other Verified 05/10/19 09:51 baclofen AdvReac Unknown Other Verified 05/10/19 09:51 clonidine AdvReac Unknown Other Verified 05/10/19 09:51 codeine AdvReac Unknown Nausea Verified 05/10/19 09:51 ketorolac AdvReac Unknown Nausea Verified 05/10/19 09:51 metoclopramide AdvReac Unknown Other Verified 05/10/19 09:51 sulfamethoxazole AdvReac Unknown Nausea and Verified 05/10/19 09:51 [From Bactrim] Vomiting tramadol AdvReac Unknown Nausea Verified 05/10/19 09:51 trimethoprim [From Bactrim] AdvReac Unknown Nausea and Verified 05/10/19 09:51 Vomiting Home Meds: Home Meds Aspirin 81 mg PO DAILY 12/30/17 [History] Calcium Acetate [PhosLo] 1,334 mg PO TIDMEALS 12/30/17 [History] Clopidogrel [Plavix] 75 mg PO DAILY 12/30/17 [History] Dextrose [Glucose] 16 gm PO ONETIME PRN 12/30/17 [History] Doxercalciferol 4 mcg IV MOWEFR 12/30/17 [History] Glucagon,Human Recombinant [Glucagon Emergency Kit] 1 mg IV ASDIRECTED PRN 12/30 [History] Insulin Degludec [Tresiba Flextouch U-100] 11 units SUBCUT DAILY 12/30/17 [ History] Midodrine 10 mg PO TID PRN 12/30/17 [History] Ondansetron [Zofran ODT] 4 mg PO Q6H PRN 12/30/17 [History] Pravastatin Sodium [Pravachol] 40 mg PO BEDTIME 12/30/17 [History] amLODIPine Besylate [Amlodipine Besylate] 5 mg PO BID 12/30/17 [History] Lacosamide [Vimpat] 100 mg PO BID 02/23/18 [History] levETIRAcetam [Keppra] 1,000 mg PO BID 02/23/18 [History] levETIRAcetam [Keppra] 500 mg PO MOWEFR 02/23/18 [History] Cholecalciferol (Vitamin D3) [D3 Dots] 2,000 unit PO DAILY 01/09/19 [History] ClonazePAM [KlonoPIN] 0.5 mg PO BEDTIME 01/09/19 [History] Darbepoetin Horace [Aranesp] 100 mcg SQ Q7D 01/09/19 [History] Hydrocodone/Acetaminophen [[place] 5-325 Tablet] 2 tab PO Q6H PRN 01/09/19 [ History] Insulin Lispro [Humalog] 0 unit SUBCUT ASDIRECTED 01/09/19 [History] Lanthanum Carbonate [Fosrenol] 500 mg PO QID 01/09/19 [History] Mirtazapine 15 mg PO BEDTIME 01/09/19 [History] Pantoprazole Sodium 40 mg PO DAILY 01/09/19 [History] Phenytoin 100 mg PO BID 01/09/19 [History] Pregabalin [Lyrica] 25 mg PO TID 01/09/19 [History] Venlafaxine [Effexor XR] 75 mg PO DAILY 01/09/19 [History] carvediloL [Carvedilol] 12.5 mg PO BIDMEALS 01/09/19 [History] hydrALAZINE [Apresoline] 25 mg PO ASDIRECTED 01/09/19 [History] lisinopriL [Lisinopril] 5 mg PO SUTUTHSA 01/09/19 [History] Past Medical History Other HEENT History: 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 dysthymic disorder Endocrine/Metabolic History: Reports: Diabetes, Type I, Vitamin D Deficiency Hematologic History: Reports: Anemia Other Hematologic History: hypocalcemic - Infectious Disease History Infectious Disease History: Reports: C-Difficile - Past Surgical History HEENT Surgical History: Reports: Eye Surgery Cardiovascular Surgical History: Reports: Coronary Artery Bypass, Coronary Artery Stent Other Cardiovascular Surgeries/Procedures: angioplasty, bypass 10/24 GI Surgical History: Reports: Cholecystectomy, Colonoscopy Female Surgical History: Reports: Lithotripsy/ESWL, Tubal Ligation Musculoskeletal Surgical History: Reports: ORIF, Other (See Below) Other Musculoskeletal Surgeries/Procedures:: left foot surgery approx. 2 wks ago Social & Family History - Family History Family Medical History: Noncontributory - Caffeine Use Caffeine Use: Reports: Coffee, Soda, Tea ED ROS GENERAL - Review of Systems Review Of Systems: See Below Constitutional: Reports: No Symptoms HEENT: Reports: No Symptoms Respiratory: Reports: No Symptoms Cardiovascular: Reports: No Symptoms Endocrine: Reports: No Symptoms GI/Abdominal: Reports: No Symptoms : Reports: No Symptoms Musculoskeletal: Reports: No Symptoms Skin: Reports: No Symptoms Neurological: Reports: Headache. Denies: Confusion, Dizziness, Numbness, Paresthesia, Seizure, Syncope, Tingling, Trouble Speaking, Difficulty Walking, Weakness, Change in Speech, Gait Disturbance Psychiatric: Reports: No Symptoms Hematologic/Lymphatic: Reports: No Symptoms Immunologic: Reports: No Symptoms ED EXAM, GENERAL - Physical Exam Exam: See Below Exam Limited By: No Limitations General Appearance: Alert, WD/WN, No Apparent Distress Eye Exam: Bilateral Eye: EOMI, Normal Fundi, Normal Inspection, PERRL Throat/Mouth: Normal Inspection, Normal Lips, Normal Teeth, Normal Gums, Normal Oropharynx, Normal Voice, No Airway Compromise Head: Atraumatic, Normocephalic Neck: Normal Inspection, Supple, Non-Tender, Full Range of Motion Respiratory/Chest: No Respiratory Distress, Lungs Clear, Normal Breath Sounds, No Accessory Muscle Use, Chest Non-Tender Cardiovascular: Normal Peripheral Pulses, Regular Rate, Rhythm, No Edema, No Gallop, No JVD, No Murmur, No Rub Peripheral Pulses: 4+: Radial (L) GI/Abdominal: Normal Bowel Sounds, Soft, Non-Tender, No Organomegaly, No Distention, No Abnormal Bruit, No Mass, Pelvis Stable (Female) Exam: Deferred Rectal (Female) Exam: Deferred Back Exam: Normal Inspection, Full Range of Motion Extremities: Normal Inspection, Normal Range of Motion, Non-Tender, No Pedal Edema, Normal Capillary Refill Neurological: Alert, Oriented, CN II-XII Intact, Normal Cognition, Normal Gait, Normal Reflexes, No Motor/Sensory Deficits Psychiatric: Normal Affect, Normal Mood Skin Exam: Warm, Dry, Intact, Normal Color, No Rash Departure - Departure Time of Disposition: 10:13 Disposition: Home, Self-Care 01 Clinical Impression: Migraine - Discharge Information Instructions: Chronic Kidney Disease, Adult, [id number] Referrals: Peri Farrell MD [Primary Care Provider] - Forms: ED Department Discharge Additional Instructions: You will be best served to go to dialysis now. That is not offered here. You would be best served to travel to dialysis today to have your run. - Assessment/Plan Plan: Advised the patient to travel to her dialysis appointment TEN as her headache is probably due to fluid overload. We contacted the dialysis center and they will be able to get her in right away. Instead of waiting for over an hour to fully work the patient up, treat her headache, etc. decision was made to have her go for her run TEN. Her father is able to transport her and accompanies her to the ER. All questions were answered.
== END 2019-05-10 10:02 | disposition home or self-care (01) ==
LOC: VM.ED 09:36
DX: G43.909 Migraine, unspecified, not intractable, without status migrainosus (principal); I11.0 Hypertensive heart disease with heart failure; I50.9 Heart failure, unspecified; I25.10 Atherosclerotic heart disease of native coronary artery without angina pectoris; I25.2 Old myocardial infarction; K21.9 Gastro-esophageal reflux disease without esophagitis; F41.9 Anxiety disorder, unspecified; F32.9 Major depressive disorder, single episode, unspecified; E10.40 Type 1 diabetes mellitus with diabetic neuropathy, unspecified; Z88.8 Allergy status to other drugs, medicaments and biological substances; Z88.1 Allergy status to other antibiotic agents; Z88.5 Allergy status to narcotic agent; Z91.048 Other nonmedicinal substance allergy status; Z88.2 Allergy status to sulfonamides; Z79.82 Long term (current) use of aspirin; Z79.02 Long term (current) use of antithrombotics/antiplatelets; Z79.899 Other long term (current) drug therapy
CPT/HCPCS: 99283; 99284-GF

== ENCOUNTER 2019-05-11 05:50 | Emergency (ER) | payer MEDICARE, MEDICAID ==
[2019-05-11] MEDS ORDERED: HYDROmorphone 1 MG/ML Syringe SUBCUT ONE (06:10)
[2019-05-11] MEDS ORDERED: SUMAtriptan 6 MG/0.5 ML SDV SUBCUT ONE (06:10)
--- NOTE | 2019-05-11 07:05 | EDM.PDOC ---
ED HPI GENERAL MEDICAL PROBLEM - General Chief Complaint: Headache Stated Complaint: Headache, N/V Time Seen by Provider: 05/11/19 05:55 Source of Information: Reports: Patient History Limitations: Reports: No Limitations - History of Present Illness INITIAL COMMENTS - FREE TEXT/NARRATIVE: Pt. presents to ER with complaints of migraine headache. She was seen in ER ( both [facility] and [facility]) with complaints of headache yesterday. She presented to this facility prior to a dialysis run. She hadn't had dialysis for 5 days. She was also obviously short of breath. It was arranged for patient to undergo dialysis immediately on arrival in [place] (her appointment was for 1 PM) as the headache could have been caused by fluid overload/hypertension. Pt. had her dialysis run. Her cloth layer had her increase her antihypertensives as well. Pt. subsequently went to [facility] ER after dialysis. She received multiple doses of dilaudid and compazine which she states did not help. She was set up to seen neurology as well. She subsequently presents to ER today. Pt. states that she has not taken her antihypertensive medications today. Her only complaint is that of headache. Denies any numbness/tingling in extremities/ face, troubles with speech, or difficulty with ambulation. Denies any chest pain or shortness of breath. She complains of photophobia. No recent head trauma. Onset: Today Onset Date: 05/11/19 Location: Reports: Head Quality: Reports: Ache frontal headache Pain Score (Numeric/FACES): 9 - Related Data Allergies Allergy/AdvReac Type Severity Reaction Status Date / Time propoxyphene [From Darvon-N] Allergy Severe Hives Verified 05/11/19 06:09 adhesive Allergy Unknown Itching Verified 05/11/19 06:09 heparin AdvReac Severe Other Verified 05/11/19 06:09 amoxicillin AdvReac Unknown Other Verified 05/11/19 06:09 baclofen AdvReac Unknown Other Verified 05/11/19 06:09 clonidine AdvReac Unknown Other Verified 05/11/19 06:09 codeine AdvReac Unknown Nausea Verified 05/11/19 06:09 ketorolac AdvReac Unknown Nausea Verified 05/11/19 06:09 metoclopramide AdvReac Unknown Itching Verified 05/11/19 06:09 sulfamethoxazole AdvReac Unknown Nausea and Verified 05/11/19 06:09 [From Bactrim] Vomiting tramadol AdvReac Unknown Nausea Verified 05/11/19 06:09 trimethoprim [From Bactrim] AdvReac Unknown Nausea and Verified 05/11/19 06:09 Vomiting Home Meds: Home Meds Aspirin 81 mg PO DAILY 12/30/17 [History] Calcium Acetate [PhosLo] 1,334 mg PO TIDMEALS 12/30/17 [History] Clopidogrel [Plavix] 75 mg PO DAILY 12/30/17 [History] Dextrose [Glucose] 16 gm PO ONETIME PRN 12/30/17 [History] Doxercalciferol 4 mcg IV MOWEFR 12/30/17 [History] Glucagon,Human Recombinant [Glucagon Emergency Kit] 1 mg IV ASDIRECTED PRN 12/30 [History] Insulin Degludec [Tresiba Flextouch U-100] 11 units SUBCUT DAILY 12/30/17 [ History] Midodrine 10 mg PO TID PRN 12/30/17 [History] Ondansetron [Zofran ODT] 4 mg PO Q6H PRN 12/30/17 [History] Pravastatin Sodium [Pravachol] 40 mg PO BEDTIME 12/30/17 [History] amLODIPine Besylate [Amlodipine Besylate] 5 mg PO BID 12/30/17 [History] Lacosamide [Vimpat] 100 mg PO BID 02/23/18 [History] levETIRAcetam [Keppra] 1,000 mg PO BID 02/23/18 [History] levETIRAcetam [Keppra] 500 mg PO MOWEFR 02/23/18 [History] Cholecalciferol (Vitamin D3) [D3 Dots] 2,000 unit PO DAILY 01/09/19 [History] ClonazePAM [KlonoPIN] 0.5 mg PO BEDTIME 01/09/19 [History] Darbepoetin Horace [Aranesp] 100 mcg SQ Q7D 01/09/19 [History] Hydrocodone/Acetaminophen [[place] 5-325 Tablet] 2 tab PO Q6H PRN 01/09/19 [ History] Insulin Lispro [Humalog] 0 unit SUBCUT ASDIRECTED 01/09/19 [History] Lanthanum Carbonate [Fosrenol] 500 mg PO QID 01/09/19 [History] Mirtazapine 15 mg PO BEDTIME 01/09/19 [History] Pantoprazole Sodium 40 mg PO DAILY 01/09/19 [History] Phenytoin 100 mg PO BID 01/09/19 [History] Pregabalin [Lyrica] 25 mg PO TID 01/09/19 [History] Venlafaxine [Effexor XR] 75 mg PO DAILY 01/09/19 [History] carvediloL [Carvedilol] 12.5 mg PO BIDMEALS 01/09/19 [History] hydrALAZINE [Apresoline] 25 mg PO ASDIRECTED 01/09/19 [History] lisinopriL [Lisinopril] 5 mg PO SUTUTHSA 01/09/19 [History] Past Medical History Other HEENT History: 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 dysthymic disorder Endocrine/Metabolic History: Reports: Diabetes, Type I, Vitamin D Deficiency Hematologic History: Reports: Anemia Other Hematologic History: hypocalcemic - Infectious Disease History Infectious Disease History: Reports: C-Difficile - Past Surgical History HEENT Surgical History: Reports: Eye Surgery Cardiovascular Surgical History: Reports: Coronary Artery Bypass, Coronary Artery Stent Other Cardiovascular Surgeries/Procedures: angioplasty, bypass 10/24 GI Surgical History: Reports: Cholecystectomy, Colonoscopy Female Surgical History: Reports: Lithotripsy/ESWL, Tubal Ligation Musculoskeletal Surgical History: Reports: ORIF, Other (See Below) Other Musculoskeletal Surgeries/Procedures:: left foot surgery approx. 2 wks ago Social & Family History - Family History Family Medical History: Noncontributory - Caffeine Use Caffeine Use: Reports: Coffee, Soda, Tea ED ROS GENERAL - Review of Systems Review Of Systems: See Below Constitutional: Reports: No Symptoms HEENT: Reports: No Symptoms Respiratory: Reports: No Symptoms Cardiovascular: Reports: No Symptoms Endocrine: Reports: No Symptoms GI/Abdominal: Reports: No Symptoms : Reports: No Symptoms Musculoskeletal: Reports: No Symptoms Skin: Reports: No Symptoms Neurological: Reports: Headache Psychiatric: Reports: No Symptoms Hematologic/Lymphatic: Reports: No Symptoms Immunologic: Reports: No Symptoms ED EXAM, GENERAL - Physical Exam Exam: See Below Exam Limited By: No Limitations General Appearance: Alert, WD/WN, Moderate Distress Neurological: Alert, Oriented, CN II-XII Intact, Normal Cognition, Normal Gait, No Motor/Sensory Deficits Psychiatric: Normal Affect, Tearful Skin Exam: Warm, Dry, Intact, Normal Color, No Rash Course - Vital Signs Last Recorded V/S: Last Vital Signs Temp 36.6 C 05/11/19 05:50 Pulse 88 05/11/19 05:50 Resp 16 05/11/19 05:50 BP 194/125 H 05/11/19 05:50 Pulse Ox 98 05/11/19 05:50 - Orders/Labs/Meds Meds: Medications Discontinued Medications Generic Name Dose Route Start Last Admin Trade Name Gonzalezq PRN Reason Stop Dose Admin Chlorpromazine HCl 50 mg 05/11/19 06:11 05/11/19 06:30 Thorazine IM 05/11/19 06:12 50 mg ONETIME ONE Administration Hydromorphone HCl 1 mg 05/11/19 06:10 Dilaudid SUBCUT 05/11/19 06:11 ONETIME ONE Sumatriptan Succinate 6 mg 05/11/19 06:10 05/11/19 06:17 Imitrex SUBCUT 05/11/19 06:11 6 mg ONETIME ONE Administration Departure - Departure Time of Disposition: 07:00 Disposition: Home, Self-Care 01 Clinical Impression: Migraine - Discharge Information Instructions: Migraine Headache, [id number] Forms: ED Department Discharge Additional Instructions: Home to rest Continue with current medications Recheck in clinic in 7-10 days, sooner if not gradually improving Sepsis Event Note - Evaluation Sepsis Screening Result: No Definite Risk - Focused Exam Vital Signs: Vital Signs Temp Pulse Resp BP BP Pulse Ox 05/11/19 05:50 36.6 C 88 16 169/116 H 194/125 H 98 Date Exam was Performed: 05/11/19 Time Exam was Performed: 06:57 - Assessment/Plan Plan: Pt. was given imitrex 6mg IM and thorazine 50mg IM. Pt. reported a rapid improvement in her discomfort. She will be discharged. Advised to follow her cloth layer's advice and double her antihypertensives today. Follow-up in clinic in 7-10 days. All questions were answered.
== END 2019-05-11 07:00 | disposition home or self-care (01) ==
LOC: VM.ED 05:50
DX: G43.909 Migraine, unspecified, not intractable, without status migrainosus (principal); I11.0 Hypertensive heart disease with heart failure; I50.9 Heart failure, unspecified; E11.40 Type 2 diabetes mellitus with diabetic neuropathy, unspecified; F41.9 Anxiety disorder, unspecified; F32.9 Major depressive disorder, single episode, unspecified; Z79.82 Long term (current) use of aspirin; Z79.899 Other long term (current) drug therapy; Z91.09 Other allergy status, other than to drugs and biological substances; Z88.6 Allergy status to analgesic agent; Z88.8 Allergy status to other drugs, medicaments and biological substances
CPT/HCPCS: 96372; 99283; J3030; J3230

== ENCOUNTER 2019-05-19 17:15 | Emergency (ER) | payer MEDICARE, MEDICAID ==
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
[2019-05-19] MEDS: SUMAtriptan 6 MG/0.5 ML SDV SUBCUT ONE (17:41)
== END 2019-05-19 18:00 | disposition home or self-care (01) ==
LOC: VM.ED 17:15
DX: G43.909 Migraine, unspecified, not intractable, without status migrainosus (principal); I11.0 Hypertensive heart disease with heart failure; I50.9 Heart failure, unspecified; I25.2 Old myocardial infarction; F41.9 Anxiety disorder, unspecified; F32.9 Major depressive disorder, single episode, unspecified; E10.9 Type 1 diabetes mellitus without complications; Z79.899 Other long term (current) drug therapy; Z79.82 Long term (current) use of aspirin; Z79.4 Long term (current) use of insulin; Z88.1 Allergy status to other antibiotic agents; Z91.09 Other allergy status, other than to drugs and biological substances; Z88.2 Allergy status to sulfonamides; Z88.5 Allergy status to narcotic agent
CPT/HCPCS: 96372; 99283; 99284-GF; J3030; J3230

== ENCOUNTER 2019-07-24 09:55 | Emergency (ER) | payer MEDICARE, MEDICAID ==
[2019-07-24] MEDS ORDERED: Sodium Chloride 0.9% 10 ML Syringe FLUSH PRN (10:14)
--- NOTE | 2019-07-24 11:06 | EDM.PDOC ---
ED HPI GENERAL MEDICAL PROBLEM - General Chief Complaint: Respiratory Problem Stated Complaint: ER Time Seen by Provider: 07/24/19 10:30 Source of Information: Reports: Patient, EMS History Limitations: Reports: No Limitations - History of Present Illness INITIAL COMMENTS - FREE TEXT/NARRATIVE: Patient comes emergency department today by ambulance with complaints of shortness of breath. This patient is a Tuesday dialysis patient who has dialysis due today at noon. Over the past few days she has had increasing shortness of breath. This morning her shortness of breath was severe to the point where she could not catch her breath. She has a chronic cough following a tracheostomy that is not worse or different than normal. Her cough is dry hacking nonproductive. She has no chest pain. No palpitations. No syncope. No abdominal pain nausea or vomiting. No fever but does have subjective chills. She recently traveled to [place] for vacation she traveled by vehicle. No black or tarry stools. The patient does have some chronic diarrhea. No vomiting of blood. She has not taken her Aranesp for about a week. 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 Treatments - Related Data Allergies Allergy/AdvReac Type Severity Reaction Status Date / Time propoxyphene [From Darvon-N] Allergy Severe Hives Verified 07/24/19 10:15 adhesive Allergy Unknown Itching Verified 07/24/19 10:15 heparin AdvReac Severe Other Verified 07/24/19 10:15 amoxicillin AdvReac Unknown Other Verified 07/24/19 10:15 baclofen AdvReac Unknown Other Verified 07/24/19 10:15 clonidine AdvReac Unknown Other Verified 07/24/19 10:15 codeine AdvReac Unknown Nausea Verified 07/24/19 10:15 ketorolac AdvReac Unknown Nausea Verified 07/24/19 10:15 metoclopramide AdvReac Unknown Itching Verified 07/24/19 10:15 sulfamethoxazole AdvReac Unknown Nausea and Verified 07/24/19 10:15 [From Bactrim] Vomiting tramadol AdvReac Unknown Nausea Verified 07/24/19 10:15 trimethoprim [From Bactrim] AdvReac Unknown Nausea and Verified 07/24/19 10:15 Vomiting Home Meds: Home Meds Aspirin 81 mg PO DAILY 12/30/17 [History] Calcium Acetate [PhosLo] 2,001 mg PO TIDMEALS 12/30/17 [History] Dextrose [Glucose] 16 gm PO ONETIME PRN 12/30/17 [History] Glucagon,Human Recombinant [Glucagon Emergency Kit] 1 mg IV ASDIRECTED PRN 12/30 [History] Insulin Degludec [Tresiba Flextouch U-100] 11 units SUBCUT DAILY 12/30/17 [ History] Midodrine 10 mg PO TID PRN 12/30/17 [History] Ondansetron [Zofran ODT] 4 mg PO Q6H PRN 12/30/17 [History] amLODIPine Besylate [Amlodipine Besylate] 5 mg PO DAILY 12/30/17 [History] Darbepoetin Horace [Aranesp] 100 mcg SQ Q7D 01/09/19 [History] Insulin Lispro [Humalog] 0 unit SUBCUT ASDIRECTED 01/09/19 [History] Phenytoin 300 mg PO BEDTIME 01/09/19 [History] carvediloL [Carvedilol] 25 mg PO BIDMEALS 01/09/19 [History] hydrALAZINE [Apresoline] 25 mg PO ASDIRECTED 01/09/19 [History] ALPRAZolam [Xanax] 0.5 mg PO BID PRN 07/24/19 [History] Doxercalciferol [Hectorol] 2 mcg IV ASDIRECTED 07/24/19 [History] Isosorbide Mononitrate [Imdur] 30 mg PO DAILY 07/24/19 [History] Losartan [Cozaar] 50 mg PO DAILY 07/24/19 [History] Nitroglycerin [Nitrostat] 0.4 mg SL ASDIRECTED PRN 07/24/19 [History] Phenytoin [Dilantin-125] 300 mg PO BEDTIME 07/24/19 [History] SUMAtriptan Succinate [Imitrex] 6 mg SQ ASDIRECTED PRN 07/24/19 [History] levETIRAcetam [Keppra] 1,000 mg PO DAILY 07/24/19 [History] risperiDONE [RisperiDAL] 0.25 mg PO BID 07/24/19 [History] Past Medical History Other HEENT History: 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 dysthymic disorder Endocrine/Metabolic History: Reports: Diabetes, Type I, Vitamin D Deficiency Hematologic History: Reports: Anemia Other Hematologic History: hypocalcemic - Infectious Disease History Infectious Disease History: Reports: C-Difficile - Past Surgical History HEENT Surgical History: Reports: Eye Surgery Cardiovascular Surgical History: Reports: Coronary Artery Bypass, Coronary Artery Stent Other Cardiovascular Surgeries/Procedures: angioplasty, bypass 10/24 GI Surgical History: Reports: Cholecystectomy, Colonoscopy Female Surgical History: Reports: Lithotripsy/ESWL, Tubal Ligation Musculoskeletal Surgical History: Reports: ORIF, Other (See Below) Other Musculoskeletal Surgeries/Procedures:: left foot surgery approx. 2 wks ago Social & Family History - Family History Family Medical History: Noncontributory - Tobacco Use Smoking Status *Q: Former Smoker Used Tobacco, but Quit: Yes Month/Year Tobacco Last Used: 05/15 - Caffeine Use Caffeine Use: Reports: Coffee, Soda, Tea ED ROS GENERAL - Review of Systems Review Of Systems: Comprehensive ROS is negative, except as noted in HPI. ED EXAM, GENERAL - Physical Exam Exam: See Below Exam Limited By: No Limitations General Appearance: Alert, WD/WN Eye Exam: Bilateral Eye: PERRL Ears: Normal External Exam, Normal TMs Nose: Normal Inspection Throat/Mouth: Normal Inspection, Normal Lips, Normal Oropharynx, Normal Voice Head: Atraumatic, Normocephalic Neck: Normal Inspection, Supple Respiratory/Chest: No Respiratory Distress, No Accessory Muscle Use, Chest Non- Tender, Decreased Breath Sounds (lower bases), Crackles. No: Respiratory Distress, Rhonchi, Wheezing Cardiovascular: Normal Peripheral Pulses, Regular Rate, Rhythm GI/Abdominal: Normal Bowel Sounds, Soft Back Exam: Normal Inspection Extremities: Non-Tender, Normal Capillary Refill, Pedal Edema Neurological: Alert, Oriented, Normal Cognition, No Motor/Sensory Deficits Psychiatric: Normal Affect, Normal Mood Skin Exam: Dry, Intact, Cool, Pallor EKG INTERPRETATION EKG Date: 07/24/19 Time: 10:45 Rhythm: NSR Rate (Beats/Min): 97 [place]: Normal P-Wave: Present QRS: Normal ST-T: Normal QT: Prolonged Course - Vital Signs Last Recorded V/S: Last Vital Signs Temp 36.6 C 07/24/19 09:55 Pulse 90 07/24/19 11:10 Resp 20 07/24/19 11:10 BP 195/99 H 07/24/19 11:10 Pulse Ox 93 L 07/24/19 11:10 - Orders/Labs/Meds Orders: Active Orders 24 hr Category Date Time Status EKG 12 Lead [EKG Documentation Completion] [RC] URGENT Care 07/24/19 10:14 Active Chest 1V Frontal [CR] Stat Exams 07/24/19 10:14 Taken CULTURE BLOOD [BC] Stat Lab 07/24/19 11:05 Results CULTURE BLOOD [] Stat Lab 07/24/19 12:35 Received CULTURE STREP A CONFIRMATION [] Stat Lab 07/24/19 12:35 Results STREP SCRN A RAPID W CULT CONF [] Stat Lab 07/24/19 12:35 Results Sodium Chloride 0.9% [Saline Flush] Med 07/24/19 10:14 Active 10 ml FLUSH ASDIRECTED PRN Blood Culture x2 Reflex Set [OM.PC] Stat Oth 07/24/19 12:23 Ordered Peripheral IV Insertion Adult [OM.PC] Stat Oth 07/24/19 10:14 Ordered Medication Orders Sodium Chloride (Saline Flush) 10 ml FLUSH ASDIRECTED PRN PRN Reason: Keep Vein Open Labs: Laboratory Tests 07/24/19 07/24/19 Range/Units 11:05 11:05 WBC 1.2 L* (4.0-10.0) x10^3/uL RBC 2.26 L (4.00-5.50) x10^6/uL Hgb 7.0 L D (12.0-16.0) g/dL Hct 21.5 L (33.0-47.0) % MCV 95.1 H (78.0-93.0) fL MCH 31.0 (26.0-32.0) pg MCHC 32.6 (32.0-36.0) g/dL RDW Coeff of Sammie 12.5 (10.0-15.0) % Plt Count 222 (130-400) x10^3/uL Add Manual Diff Yes Neutrophils % (Manual) 25 L (50-80) % Band Neutrophils % 9 H (0-6) % Lymphocytes % (Manual) 47 (25-50) % Monocytes % (Manual) 16 H (2-11) % Eosinophils % (Manual) 2 (0-4) % Metamyelocytes % 1 H (0) % Platelet Estimate Adequate Poikilocytosis 2+ moderate H Anisocytosis 1+ slight H Microcytosis 1+ slight H Target Cells 1+ slight H Sodium 139 (136-145) mmol/L Potassium 4.8 (3.5-5.1) mmol/L Chloride 98 (98-107) mmol/L Carbon Dioxide 26 (21-32) mmol/L Anion Gap 19.8 (10-20) mmol/L BUN 45 H (7-18) mg/dL Creatinine 10.6 H* D (0.55-1.02) mg/dL Est Cr Clr Drug Dosing TNP Estimated GFR (MDRD) 4 Glucose 149 H (74-106) mg/dL Calcium 7.3 L (8.5-10.1) mg/dL Corrected Calcium 8.02 L (8.5-10.1) mg/dL Total Bilirubin 0.5 (0.2-1.0) mg/dL AST 90 H (15-37) U/L ALT 51 (14-59) U/L Alkaline Phosphatase 116 (46-116) U/L Troponin I < 0.017 (<=0.056) ng/mL C-Reactive Protein 2.6 H (<=0.9) mg/dL NT-Pro-B Natriuret Pep 98095 H (<=125) pg/mL Total Protein 6.8 (6.4-8.2) g/dL Albumin 3.1 L (3.4-5.0) g/dL Globulin 3.7 Albumin/Globulin Ratio 0.84 Microbiology 07/24/19 12:35 Influenza Type A Antigen Screen - Final Nasopharyngeal Swab NEGATIVE INFLUENZA A VIRUS AG REFERENCE RANGE: NEGATIVE Influenza Type B Antigen Screen - Final NEGATIVE INFLUENZA B VIRUS AG REFERENCE RANGE: NEGATIVE 07/24/19 12:35 Group A Streptococcus Rapid Screen - Final Throat NEGATIVE STREP A SCREEN REFERENCE RANGE: NEGATIVE 07/24/19 11:05 Anaerobic Blood Culture - Final Blood - Venous Meds: Medications Generic Name Dose Route Start Last Admin Trade Name Freq PRN Reason Stop Dose Admin Sodium Chloride 10 ml 07/24/19 10:14 Saline Flush FLUSH ASDIRECTED PRN Keep Vein Open - Radiology Interpretation Free Text/Narrative:: Chest x-ray per radiology shows mild to moderate vascular congestion mild pulmonary edema. Right internal jugular dialysis catheter right tip at atrium. Previous sternotomy. - Re-Assessments/Exams Free Text/Narrative Re-Assessment/Exam: 07/24/19 12:28 Patient was masked upon arrival and also staff masked as well due to recent travel. Labs drawn CXR. 07/24/19 12:28 The patient clearly is fluid overloaded and needs dialysis. Interesting no sites of bleeding but hgb is down to 7 and WBC 1.2. CRP minnimally elevated at 2.6 Blood cultures drawn. Influenza negative Strep negative. Pro BNP 27k I called and spoke with Dr. Mendoza as well as Dr. Darby? spelling Infectious disease. HPI ER COURSE findings and concerns were relayed to them. Their questions were answered and they accepted the patient in transfer at this time with no new orders or isolations. I discussed the plan of care with the patient. She and her mother were comfortable with this plan. I did discuss that the trip to [place] with her CO- Morbid state is really not appropriate at this time due to the pandemic risk. No antibiotics at this time or new orders per [facility]. 07/24/19 13:43 Departure - Departure Time of Disposition: 12:38 Disposition: DC/Tfer to [facility] 02 Clinical Impression: ESRD (end stage renal disease) on dialysis, Hypoxia, Hypertensive urgency Anemia Qualifiers: Anemia type: due to chronic kidney disease Chronic kidney disease stage: on chronic dialysis Qualified Code(s): N18.6 - End stage renal disease Leukopenia Qualifiers: Leukopenia type: unspecified Qualified Code(s): D72.819 - Decreased white blood cell count, unspecified - Discharge Information Referrals: Peri Farrell MD [Primary Care Provider] - Forms: ED Department Discharge, Interfacility Transfer EMTALA Sepsis Event Note - Evaluation Sepsis Screening Result: No Definite Risk - Focused Exam Vital Signs: Vital Signs Temp Temp Pulse Resp BP Pulse Ox 07/24/19 11:10 90 20 195/99 H 93 L 07/24/19 09:55 36.6 C 36.3 C 102 H 20 206/115 H 98 Date Exam was Performed: 07/24/19 Time Exam was Performed: 13:43 - My Orders Last 24 Hours: My Active Orders 07/24/19 10:14 EKG 12 Lead [EKG Documentation Completion] [RC] URGENT Chest 1V Frontal [CR] Stat Sodium Chloride 0.9% [Saline Flush] 10 ml FLUSH ASDIRECTED PRN Peripheral IV Insertion Adult [OM.PC] Stat 07/24/19 11:05 CULTURE BLOOD [BC] Stat 07/24/19 12:23 Blood Culture x2 Reflex Set [OM.PC] Stat 07/24/19 12:35 CULTURE BLOOD [BC] Stat CULTURE STREP A CONFIRMATION [RM] Stat STREP SCRN A RAPID W CULT CONF [RM] Stat - Assessment/Plan Last 24 Hours: My Active Orders 07/24/19 10:14 EKG 12 Lead [EKG Documentation Completion] [RC] URGENT Chest 1V Frontal [CR] Stat Sodium Chloride 0.9% [Saline Flush] 10 ml FLUSH ASDIRECTED PRN Peripheral IV Insertion Adult [OM.PC] Stat 07/24/19 11:05 CULTURE BLOOD [BC] Stat 07/24/19 12:23 Blood Culture x2 Reflex Set [OM.PC] Stat 07/24/19 12:35 CULTURE BLOOD [BC] Stat CULTURE STREP A CONFIRMATION [RM] Stat STREP SCRN A RAPID W CULT CONF [RM] Stat Assessment:: SOB from CHF CHF from fluid overload dialysis patient. Hypoxia most likely from the CHF. Anemia ? if from CKD lack of arinesp or bleeding but no sites of bleeding. Leukopenia unknown cause. cultures pending. DM Plan: Transfer to [facility] for further care and management.
[2019-07-24 11:40] LABS: CHLORIDE,CL 98 mmol/L (98-107); SODIUM,NA 139 mmol/L (136-145)
[2019-07-24 12:03] LABS: ANION GAP 19.8 mmol/L (10-20)
--- NOTE | 2019-07-25 08:58 | CR ---
[id number] RAD/RAD Chest PA or AP 1V EXAM: FRONTAL CHEST INDICATION: SHORTNESS OF BREATH, WHEEZING. COMPARISON: January 09, 2019. DISCUSSION: Cardiomegaly with development of mild to moderate vascular congestion and mild interstitial edema. Sternotomy. Right internal jugular introduced dialysis catheter tip right atrium. IMPRESSION: 1. Mild to moderate vascular congestion and mild pulmonary edema. Jose Lau MD 07/25/19 0857 Thank you for allowing us to participate in the care of your patient.
== END 2019-07-24 13:15 | disposition short-term general hospital (02) ==
LOC: VM.ED 09:55
DX: R09.02 Hypoxemia (principal); I13.2 Hypertensive heart and chronic kidney disease with heart failure and with stage 5 chronic kidney disease, or end stage renal disease; E10.22 Type 1 diabetes mellitus with diabetic chronic kidney disease; N18.6 End stage renal disease; I50.9 Heart failure, unspecified; D63.1 Anemia in chronic kidney disease; D72.819 Decreased white blood cell count, unspecified; I16.0 Hypertensive urgency; I25.2 Old myocardial infarction; I25.10 Atherosclerotic heart disease of native coronary artery without angina pectoris; K21.9 Gastro-esophageal reflux disease without esophagitis; F41.9 Anxiety disorder, unspecified; F32.9 Major depressive disorder, single episode, unspecified; E10.40 Type 1 diabetes mellitus with diabetic neuropathy, unspecified; Z87.891 Personal history of nicotine dependence; Z95.1 Presence of aortocoronary bypass graft; Z88.8 Allergy status to other drugs, medicaments and biological substances; Z88.5 Allergy status to narcotic agent; Z88.1 Allergy status to other antibiotic agents; Z88.2 Allergy status to sulfonamides; Z79.82 Long term (current) use of aspirin; Z79.899 Other long term (current) drug therapy; Z79.4 Long term (current) use of insulin
CPT/HCPCS: 36415; 71045; 80053; 83880; 84484; 85025; 86140; 87040; 87081; 87804; 87804-59; 87880-QW; 93005; 99285-25

== ENCOUNTER 2019-08-18 03:23 | Emergency (ER) | payer MEDICARE, MEDICAID ==
[2019-08-18] MEDS ORDERED: Albuterol 0.083% 2.5 MG/3 ML Neb Soln NEB ONE (03:33)
[2019-08-18] MEDS ORDERED: Sodium Chloride 0.9% 10 ML Syringe FLUSH PRN (03:33)
[2019-08-18] MEDS ORDERED: LORazepam 2 MG/ML SDV IVPUSH ONE (03:37)
[2019-08-18 04:33] LABS: CHLORIDE,CL 90 mmol/L (98-107)
[2019-08-18 04:35] LABS: SODIUM,NA 125 mmol/L (136-145)
[2019-08-18 04:36] LABS: ANION GAP 21.1 mmol/L (10-20)
[2019-08-18] MEDS ORDERED: Insulin Regular, Human 100 Units/ML 3 ML Vial SUBCUT STA (05:02)
--- NOTE | 2019-08-18 09:38 | CR ---
[id number] RAD/RAD Chest PA or AP 1V EXAM: SINGLE VIEW CHEST. INDICATION: SHORTNESS OF BREATH COMPARISON: CORRELATION IS MADE WITH JULY 24, 2019 FINDINGS: There is no pneumonia or edema. The cardiac silhouette is stable Median sternotomy sutures and the dialysis catheter are seen IMPRESSION: NO PNEUMONIA OR EDEMA Johnathon Cuellar MD 08/18/19 0937 Thank you for allowing us to participate in the care of your patient.
--- NOTE | 2019-08-23 16:02 | EDM.PDOC ---
ED HPI GENERAL MEDICAL PROBLEM - General Chief Complaint: Respiratory Problem Stated Complaint: Shortness of breath, dialysis Time Seen by Provider: 08/18/19 03:40 Source of Information: Reports: Patient History Limitations: Reports: No Limitations - History of Present Illness INITIAL COMMENTS - FREE TEXT/NARRATIVE: Patient comes emergency department today from home by ambulance with concerns of shortness of breath. This patient is well-known to myself as well as the facility for being a noncompliant dialysis patient at best. She is not due for dialysis until tomorrow. She has been struggling with increasing shortness of breath over the past 24 hours. She does not think that she can make it to her dialysis in the morning in [place]. Her last dialysis was on Tuesday. She did not go to her dialysis on because she has what she relates as " dialysis burnout". She wants to try to go to dialysis only twice a week despite the recommendations from her financial controller. She has had no increased cough fever or chills. She does have some tightness in her chest. No fever no chills. She has been isolating herself at home. No nausea or vomiting. No difficulty with eating or drinking. No abdominal pain. Treatments BRAZER REPAIR AND SALVAGE: Reports: Other (see below) Other Treatments BRAZER REPAIR AND SALVAGE: Xanax 2mg at 2000 Right lateral rib area, "lungs" Pain Score (Numeric/FACES): 6 - Related Data Allergies Allergy/AdvReac Type Severity Reaction Status Date / Time propoxyphene [From Darvon-N] Allergy Severe Hives Verified 08/18/19 03:42 adhesive Allergy Unknown Itching Verified 08/18/19 03:42 heparin AdvReac Severe Other Verified 08/18/19 03:42 amoxicillin AdvReac Unknown Other Verified 08/18/19 03:42 baclofen AdvReac Unknown Other Verified 08/18/19 03:42 clonidine AdvReac Unknown Other Verified 08/18/19 03:42 codeine AdvReac Unknown Nausea Verified 08/18/19 03:42 ketorolac AdvReac Unknown Nausea Verified 08/18/19 03:42 metoclopramide AdvReac Unknown Itching Verified 08/18/19 03:42 sulfamethoxazole AdvReac Unknown Nausea and Verified 08/18/19 03:42 [From Bactrim] Vomiting tramadol AdvReac Unknown Nausea Verified 08/18/19 03:42 trimethoprim [From Bactrim] AdvReac Unknown Nausea and Verified 08/18/19 03:42 Vomiting Home Meds: Home Meds Aspirin 81 mg PO DAILY 12/30/17 [History] Calcium Acetate [PhosLo] 2,001 mg PO TIDMEALS 12/30/17 [History] Dextrose [Glucose] 16 gm PO ONETIME PRN 12/30/17 [History] Glucagon,Human Recombinant [Glucagon Emergency Kit] 1 mg IV ASDIRECTED PRN 12/30 [History] Insulin Degludec [Tresiba Flextouch U-100] 11 units SUBCUT DAILY 12/30/17 [ History] Midodrine 10 mg PO TID PRN 12/30/17 [History] Ondansetron [Zofran ODT] 4 mg PO Q6H PRN 12/30/17 [History] amLODIPine Besylate [Amlodipine Besylate] 5 mg PO DAILY 12/30/17 [History] Darbepoetin Horace [Aranesp] 100 mcg SQ Q7D 01/09/19 [History] Insulin Lispro [Humalog] 0 unit SUBCUT ASDIRECTED 01/09/19 [History] Phenytoin 300 mg PO BEDTIME 01/09/19 [History] carvediloL [Carvedilol] 25 mg PO BIDMEALS 01/09/19 [History] hydrALAZINE [Apresoline] 25 mg PO ASDIRECTED 01/09/19 [History] ALPRAZolam [Xanax] 0.5 mg PO BID PRN 07/24/19 [History] Doxercalciferol [Hectorol] 2 mcg IV ASDIRECTED 07/24/19 [History] Isosorbide Mononitrate [Imdur] 30 mg PO DAILY 07/24/19 [History] Losartan [Cozaar] 50 mg PO DAILY 07/24/19 [History] Nitroglycerin [Nitrostat] 0.4 mg SL ASDIRECTED PRN 07/24/19 [History] Phenytoin [Dilantin-125] 300 mg PO BEDTIME 07/24/19 [History] SUMAtriptan Succinate [Imitrex] 6 mg SQ ASDIRECTED PRN 07/24/19 [History] levETIRAcetam [Keppra] 1,000 mg PO DAILY 07/24/19 [History] risperiDONE [RisperiDAL] 0.25 mg PO BID 07/24/19 [History] Past Medical History Other HEENT History: 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 dysthymic disorder Endocrine/Metabolic History: Reports: Diabetes, Type I, Vitamin D Deficiency Hematologic History: Reports: Anemia Other Hematologic History: hypocalcemic - Infectious Disease History Infectious Disease History: Reports: C-Difficile - Past Surgical History HEENT Surgical History: Reports: Eye Surgery Cardiovascular Surgical History: Reports: Coronary Artery Bypass, Coronary Artery Stent Other Cardiovascular Surgeries/Procedures: angioplasty, bypass 10/24 GI Surgical History: Reports: Cholecystectomy, Colonoscopy Female Surgical History: Reports: Lithotripsy/ESWL, Tubal Ligation Musculoskeletal Surgical History: Reports: ORIF, Other (See Below) Other Musculoskeletal Surgeries/Procedures:: left foot surgery approx. 2 wks ago Social & Family History - Family History Family Medical History: Noncontributory - Caffeine Use Caffeine Use: Reports: Coffee, Soda, Tea ED ROS GENERAL - Review of Systems Review Of Systems: Comprehensive ROS is negative, except as noted in HPI. ED EXAM, GENERAL - Physical Exam Exam: See Below Exam Limited By: No Limitations General Appearance: Anxious, Mild Distress Eye Exam: Bilateral Eye: EOMI Ears: Normal External Exam, Normal TMs Nose: Normal Inspection Throat/Mouth: Normal Inspection, Normal Oropharynx Head: Atraumatic, Normocephalic Neck: Normal Inspection, Supple Respiratory/Chest: No Accessory Muscle Use, Chest Non-Tender, Respiratory Distress (Mild respiratory distress no stridor or sonorous respirations.), Decreased Breath Sounds, Rales (Rales throughout the lung field about 50% up), Wheezing (Bilateral inspiratory expiratory). No: Accessory Muscle Use Cardiovascular: Normal Peripheral Pulses, Regular Rate, Rhythm GI/Abdominal: Normal Bowel Sounds, Soft (Female) Exam: Deferred Rectal (Female) Exam: Deferred Back Exam: Normal Inspection Extremities: Normal Inspection, Normal Range of Motion, No Pedal Edema Neurological: Alert, Oriented, Normal Cognition, No Motor/Sensory Deficits Psychiatric: Anxious Skin Exam: Warm, Dry, Intact, Normal Color EKG INTERPRETATION EKG Date: 08/18/19 Time: 04:10 Rhythm: NSR Rate (Beats/Min): 84 [place]: Normal P-Wave: Present QRS: Normal ST-T: Depressed (Minimally in the inferior leads but does not meet criteria) QT: Normal Comparison: No Change Course - Vital Signs Last Recorded V/S: Last Vital Signs Temp 37.2 C 08/18/19 03:25 Pulse 77 08/18/19 05:30 Resp 20 08/18/19 05:30 BP 171/97 H 08/18/19 05:30 Pulse Ox 95 08/18/19 05:50 - Orders/Labs/Meds Labs: Laboratory Tests 08/18/19 08/18/19 08/18/19 Range/Units 03:58 03:58 03:58 WBC 5.2 (4.0-10.0) x10^3/uL RBC 2.68 L (4.00-5.50) x10^6/uL Hgb 8.5 L D (12.0-16.0) g/dL Hct 28.1 L (33.0-47.0) % MCV 104.9 H D (78.0-93.0) fL MCH 31.7 (26.0-32.0) pg MCHC 30.2 L (32.0-36.0) g/dL RDW Coeff of Sammie 13.5 (10.0-15.0) % Plt Count 156 (130-400) x10^3/uL Add Manual Diff Yes Neutrophils % (Manual) 69 (50-80) % Lymphocytes % (Manual) 19 L (25-50) % Monocytes % (Manual) 10 (2-11) % Eosinophils % (Manual) 2 (0-4) % Platelet Estimate Adequate Anisocytosis 1+ slight H Macrocytosis 1+ slight H Sodium 125 L* D (136-145) mmol/L Potassium 5.1 (3.5-5.1) mmol/L Chloride 90 L (98-107) mmol/L Carbon Dioxide 19 L (21-32) mmol/L Anion Gap 21.1 H (10-20) mmol/L BUN 73 H* D (7-18) mg/dL Creatinine 10.0 H* (0.55-1.02) mg/dL Est Cr Clr Drug Dosing TNP Estimated GFR (MDRD) 4 Glucose 891 H* (74-106) mg/dL Lactic Acid 2.3 H* (0.4-2.0) mmol/L Calcium 7.0 L (8.5-10.1) mg/dL Corrected Calcium 7.64 L (8.5-10.1) mg/dL Total Bilirubin 0.4 (0.2-1.0) mg/dL AST 52 H (15-37) U/L ALT 35 (14-59) U/L Alkaline Phosphatase 225 H (46-116) U/L Troponin I < 0.017 (<=0.056) ng/mL NT-Pro-B Natriuret Pep 78070 H (<=125) pg/mL Total Protein 6.4 (6.4-8.2) g/dL Albumin 3.2 L (3.4-5.0) g/dL Globulin 3.2 Albumin/Globulin Ratio 1.00 Meds: Medications Discontinued Medications Generic Name Dose Route Start Last Admin Trade Name Freq PRN Reason Stop Dose Admin Albuterol 2.5 mg 08/18/19 03:33 08/18/19 03:55 Proventil Neb Soln NEB 08/18/19 03:34 2.5 mg ONETIME ONE Administration Insulin Human Regular 10 unit 08/18/19 05:02 08/18/19 05:12 Humulin R SUBCUT 08/18/19 05:03 10 units NOW STA Administration Lorazepam 1 mg 08/18/19 03:37 08/18/19 04:01 Ativan IVPUSH 08/18/19 03:38 1 mg STAT ONE Administration Sodium Chloride 10 ml 08/18/19 03:33 Saline Flush FLUSH ASDIRECTED PRN Keep Vein Open - Radiology Interpretation Free Text/Narrative:: X-ray per radiology says no pneumonia or edema. - Re-Assessments/Exams Free Text/Narrative Re-Assessment/Exam: 08/23/19 16:26 This patient is quite hypertensive. She is not requiring any oxygen. She is quite hyperglycemic as well. She was given 10 units of regular insulin subcutaneously. She clearly already in fluid overload as she refuses to go to dialysis as prescribed from her financial controller. I called and spoke with the hospitalist at [facility] in [place]. HPI ER course findings and concerns were relayed to him. He initially refused the patient in transfer she can just go to dialysis this morning although with her hyperglycemia he did agree to have her be seen in the emergency department following the insulin administration and most likely will discharge her from the ER and send her to dialysis. Discussed the plan of care with the patient she is comfortable with this plan and her questions are answered. Departure - Departure Time of Disposition: 04:30 Disposition: DC/Tfer to [facility] 02 Clinical Impression: Hypertensive urgency, ESRD (end stage renal disease) on dialysis, Hyperglycemia Fluid overload Qualifiers: Hypervolemia type: unspecified Qualified Code(s): E87.70 - Fluid overload, unspecified - Discharge Information Referrals: PCP,Unobtain [Primary Care Provider] - Forms: ED Department Discharge, Interfacility Transfer LUCIO Sepsis Event Note - Evaluation Sepsis Screening Result: No Definite Risk - Focused Exam Date Exam was Performed: 08/23/19 Time Exam was Performed: 16:20 - Assessment/Plan Assessment:: Hypertensive urgency Fluid overload ESRD non-compliant at best. Plan: Transfer to [facility] for further care management and evaluation.
== END 2019-08-18 05:50 | disposition short-term general hospital (02) ==
LOC: VM.ED 03:23
DX: I16.0 Hypertensive urgency (principal); E87.70 Fluid overload, unspecified; I13.2 Hypertensive heart and chronic kidney disease with heart failure and with stage 5 chronic kidney disease, or end stage renal disease; N18.6 End stage renal disease; I50.9 Heart failure, unspecified; E10.22 Type 1 diabetes mellitus with diabetic chronic kidney disease; K21.9 Gastro-esophageal reflux disease without esophagitis; R56.9 Unspecified convulsions; G43.909 Migraine, unspecified, not intractable, without status migrainosus; F41.9 Anxiety disorder, unspecified; E10.65 Type 1 diabetes mellitus with hyperglycemia; F32.9 Major depressive disorder, single episode, unspecified; E10.40 Type 1 diabetes mellitus with diabetic neuropathy, unspecified; Z91.09 Other allergy status, other than to drugs and biological substances; Z88.1 Allergy status to other antibiotic agents; Z88.2 Allergy status to sulfonamides; Z88.5 Allergy status to narcotic agent; Z88.6 Allergy status to analgesic agent; Z79.4 Long term (current) use of insulin; Z99.2 Dependence on renal dialysis; Z79.82 Long term (current) use of aspirin; Z79.899 Other long term (current) drug therapy
CPT/HCPCS: 71045; 80053; 83605; 83880; 84484; 85025; 93005; 93010; 94640; 94760; 96374; 99284-GF; 99285-25; J1815-GY; J2060; J7613-GY

== ENCOUNTER 2019-08-27 02:10 | Emergency (ER) | payer MEDICARE, MEDICAID ==
[2019-08-27] MEDS ORDERED: Sodium Chloride 0.9% 10 ML Syringe FLUSH PRN (02:25)
[2019-08-27] MEDS ORDERED: Furosemide 40 MG/4 ML VIAL IV ONE (02:37)
[2019-08-27] MEDS ORDERED: hydrALAZINE 20 MG/ML SDV IVPUSH ONE ×2 (03:07→03:51)
[2019-08-27] MEDS ORDERED: Nitroglycerin 0.4 MG Tab.SL SL ONE ×2 (03:08)
--- NOTE | 2019-08-27 03:09 | EDM.PDOC ---
ED HPI GENERAL MEDICAL PROBLEM - General Chief Complaint: Respiratory Problem Stated Complaint: Shortness of Breath Time Seen by Provider: 08/27/19 02:10 Source of Information: Reports: Patient, EMS History Limitations: Reports: No Limitations - History of Present Illness INITIAL COMMENTS - FREE TEXT/NARRATIVE: Pt. presents to ER with complaints of chest pain and shortness of breath. Pt. states that the symptoms started abruptly this evening. EMS was summoned. She was found to be extremely hypertensive. Pt. states that she "forgot" to take her antihypertensive meds today, which consist of hydralazine 25mg 3 times a day , amlodipine 10mg daily, or imdur 30mg daily. She has a history of ESRD, on dialysis twice weekly. Her next run is supposed to be on Tuesday. She has a history of noncompliance. Her type I DM is very poorly controlled. She is supposed to be fluid restricted but has been noncompliant with this as well. Pt. denies any fever or chills. No nausea, vomiting, or diarrhea. Pt. has a history of AMY; hemoglobin on discharge from [place] was 10.8. Onset: Today Onset Date: 08/27/19 Location: Reports: Generalized Associated Symptoms: Reports: Chest Pain, Shortness of Breath - Related Data Allergies Allergy/AdvReac Type Severity Reaction Status Date / Time propoxyphene [From Darvon-N] Allergy Severe Hives Verified 08/18/19 03:42 adhesive Allergy Unknown Itching Verified 08/18/19 03:42 heparin AdvReac Severe Other Verified 08/18/19 03:42 amoxicillin AdvReac Unknown Other Verified 08/18/19 03:42 baclofen AdvReac Unknown Other Verified 08/18/19 03:42 clonidine AdvReac Unknown Other Verified 08/18/19 03:42 codeine AdvReac Unknown Nausea Verified 08/18/19 03:42 ketorolac AdvReac Unknown Nausea Verified 08/18/19 03:42 metoclopramide AdvReac Unknown Itching Verified 08/18/19 03:42 sulfamethoxazole AdvReac Unknown Nausea and Verified 08/18/19 03:42 [From Bactrim] Vomiting tramadol AdvReac Unknown Nausea Verified 08/18/19 03:42 trimethoprim [From Bactrim] AdvReac Unknown Nausea and Verified 04/11/20 03:42 Vomiting Home Meds: Home Meds Aspirin 81 mg PO DAILY 12/30/17 [History] Calcium Acetate [PhosLo] 2,001 mg PO TIDMEALS 12/30/17 [History] Dextrose [Glucose] 16 gm PO ONETIME PRN 12/30/17 [History] Glucagon,Human Recombinant [Glucagon Emergency Kit] 1 mg IV ASDIRECTED PRN 12/30 [History] Insulin Degludec [Tresiba Flextouch U-100] 11 units SUBCUT DAILY 12/30/17 [ History] Midodrine 10 mg PO TID PRN 12/30/17 [History] Ondansetron [Zofran ODT] 4 mg PO Q6H PRN 12/30/17 [History] amLODIPine Besylate [Amlodipine Besylate] 5 mg PO DAILY 12/30/17 [History] Darbepoetin Horace [Aranesp] 100 mcg SQ Q7D 01/09/19 [History] Insulin Lispro [Humalog] 0 unit SUBCUT ASDIRECTED 01/09/19 [History] Phenytoin 300 mg PO BEDTIME 01/09/19 [History] carvediloL [Carvedilol] 25 mg PO BIDMEALS 01/09/19 [History] hydrALAZINE [Apresoline] 25 mg PO ASDIRECTED 01/09/19 [History] ALPRAZolam [Xanax] 0.5 mg PO BID PRN 07/24/19 [History] Doxercalciferol [Hectorol] 2 mcg IV ASDIRECTED 07/24/19 [History] Isosorbide Mononitrate [Imdur] 30 mg PO DAILY 07/24/19 [History] Losartan [Cozaar] 50 mg PO DAILY 07/24/19 [History] Nitroglycerin [Nitrostat] 0.4 mg SL ASDIRECTED PRN 07/24/19 [History] Phenytoin [Dilantin-125] 300 mg PO BEDTIME 07/24/19 [History] SUMAtriptan Succinate [Imitrex] 6 mg SQ ASDIRECTED PRN 07/24/19 [History] levETIRAcetam [Keppra] 1,000 mg PO DAILY 07/24/19 [History] risperiDONE [RisperiDAL] 0.25 mg PO BID 07/24/19 [History] Past Medical History Other HEENT History: 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 dysthymic disorder Endocrine/Metabolic History: Reports: Diabetes, Type I, Vitamin D Deficiency Hematologic History: Reports: Anemia Other Hematologic History: hypocalcemic - Infectious Disease History Infectious Disease History: Reports: C-Difficile - Past Surgical History HEENT Surgical History: Reports: Eye Surgery Cardiovascular Surgical History: Reports: Coronary Artery Bypass, Coronary Artery Stent Other Cardiovascular Surgeries/Procedures: angioplasty, bypass 10/24 GI Surgical History: Reports: Cholecystectomy, Colonoscopy Female Surgical History: Reports: Lithotripsy/ESWL, Tubal Ligation Musculoskeletal Surgical History: Reports: ORIF, Other (See Below) Other Musculoskeletal Surgeries/Procedures:: left foot surgery approx. 2 wks ago Social & Family History - Family History Family Medical History: Noncontributory - Caffeine Use Caffeine Use: Reports: Coffee, Soda, Tea ED ROS GENERAL - Review of Systems Review Of Systems: See Below Constitutional: Reports: No Symptoms. Denies: Fever, Chills HEENT: Reports: No Symptoms Respiratory: Reports: Shortness of Breath. Denies: Cough, Sputum, Hemoptysis Cardiovascular: Reports: Chest Pain Endocrine: Reports: No Symptoms GI/Abdominal: Reports: No Symptoms : Reports: No Symptoms Musculoskeletal: Reports: No Symptoms Skin: Reports: No Symptoms Neurological: Reports: No Symptoms Psychiatric: Reports: No Symptoms Hematologic/Lymphatic: Reports: No Symptoms Immunologic: Reports: No Symptoms ED EXAM, GENERAL - Physical Exam Exam: See Below Exam Limited By: No Limitations General Appearance: Alert, WD/WN, No Apparent Distress Eye Exam: Bilateral Eye: EOMI, PERRL Throat/Mouth: Normal Inspection, Normal Gums, No Airway Compromise Head: Atraumatic, Normocephalic Neck: Normal Inspection, Supple, Non-Tender Respiratory/Chest: No Respiratory Distress, Decreased Breath Sounds Cardiovascular: Normal Peripheral Pulses, Regular Rate, Rhythm, No JVD, No Murmur, No Rub Peripheral Pulses: 4+: Radial (L) GI/Abdominal: Normal Bowel Sounds, Soft, Non-Tender, No Mass (Female) Exam: Deferred Rectal (Female) Exam: Deferred Back Exam: Normal Inspection, Full Range of Motion Extremities: Normal Inspection, Normal Range of Motion, Non-Tender, No Pedal Edema, Normal Capillary Refill Neurological: Alert, Oriented, CN II-XII Intact, Normal Cognition, Normal Gait, Normal Reflexes, No Motor/Sensory Deficits Psychiatric: Normal Affect, Normal Mood Skin Exam: Warm, Dry, Intact, Normal Color, No Rash Lymphatic: No Adenopathy EKG INTERPRETATION Rhythm: NSR Course - Vital Signs Last Recorded V/S: Last Vital Signs Temp Pulse Resp BP 206/122 H 08/27/19 03:00 Pulse Ox - Orders/Labs/Meds Orders: Active Orders 24 hr Category Date Time Status EKG Documentation Completion [RC] STAT Care 08/27/19 02:23 Active Chest 1V Frontal [CR] Stat Exams 08/27/19 02:23 Taken ABG [BLOOD GAS ARTERIAL] [BG] Stat Lab 08/27/19 03:31 Ordered Sodium Chloride 0.9% [Saline Flush] Med 08/27/19 02:25 Active 10 ml FLUSH ASDIRECTED PRN Blood Culture x2 Reflex Set [OM.PC] Stat Oth 08/27/19 02:25 Ordered Peripheral IV Insertion Adult [OM.PC] Routine Oth 08/27/19 02:25 Ordered Medication Orders Sodium Chloride (Saline Flush) 10 ml FLUSH ASDIRECTED PRN PRN Reason: Keep Vein Open Labs: Laboratory Tests 08/27/19 08/27/19 08/27/19 Range/Units 02:45 02:45 02:45 WBC 2.8 L (4.0-10.0) x10^3/uL RBC 2.74 L (4.00-5.50) x10^6/uL Hgb 8.8 L (12.0-16.0) g/dL Hct 27.4 L (33.0-47.0) % MCV 100.0 H D (78.0-93.0) fL MCH 32.1 H (26.0-32.0) pg MCHC 32.1 (32.0-36.0) g/dL RDW Coeff of Sammie 12.8 (10.0-15.0) % Plt Count 170 (130-400) x10^3/uL Neut % (Auto) 66.1 (50.0-80.0) % Lymph % (Auto) 18.0 L (25.0-50.0) % [place] % (Auto) 12.7 H (2.0-11.0) % Eos % (Auto) 1.4 (0.0-4.0) % Baso % (Auto) 1.8 H (0.2-1.2) % PT 11.0 (10.0-12.8) SEC INR 1.0 L (2.0-3.5) D-Dimer, Quantitative 1.73 H (<=0.58) mg/LFEU Sodium (136-145) mmol/L Potassium (3.5-5.1) mmol/L Chloride (98-107) mmol/L Carbon Dioxide (21-32) mmol/L Anion Gap (10-20) mmol/L BUN (7-18) mg/dL Creatinine (0.55-1.02) mg/dL Est Cr Clr Drug Dosing Estimated GFR (MDRD) Glucose (74-106) mg/dL Lactic Acid (0.4-2.0) mmol/L Calcium (8.5-10.1) mg/dL Corrected Calcium (8.5-10.1) mg/dL Magnesium (1.8-2.4) mg/dL Total Bilirubin (0.2-1.0) mg/dL AST (15-37) U/L ALT (14-59) U/L Alkaline Phosphatase (46-116) U/L Troponin I (<=0.056) ng/mL C-Reactive Protein (<=0.9) mg/dL NT-Pro-B Natriuret Pep (<=125) pg/mL Total Protein (6.4-8.2) g/dL Albumin (3.4-5.0) g/dL Globulin Albumin/Globulin Ratio 08/27/19 08/27/19 Range/Units 02:45 02:45 WBC (4.0-10.0) x10^3/uL RBC (4.00-5.50) x10^6/uL Hgb (12.0-16.0) g/dL Hct (33.0-47.0) % MCV (78.0-93.0) fL MCH (26.0-32.0) pg MCHC (32.0-36.0) g/dL RDW Coeff of Sammie (10.0-15.0) % Plt Count (130-400) x10^3/uL Neut % (Auto) (50.0-80.0) % Lymph % (Auto) (25.0-50.0) % [place] % (Auto) (2.0-11.0) % Eos % (Auto) (0.0-4.0) % Baso % (Auto) (0.2-1.2) % PT (10.0-12.8) SEC INR (2.0-3.5) D-Dimer, Quantitative (<=0.58) mg/LFEU Sodium 132 L (136-145) mmol/L Potassium 5.5 H (3.5-5.1) mmol/L Chloride 93 L (98-107) mmol/L Carbon Dioxide 17 L (21-32) mmol/L Anion Gap 27.5 H (10-20) mmol/L BUN 87 H* (7-18) mg/dL Creatinine 11.0 H* (0.55-1.02) mg/dL Est Cr Clr Drug Dosing TNP Estimated GFR (MDRD) 4 Glucose 679 H* (74-106) mg/dL Lactic Acid 1.5 (0.4-2.0) mmol/L Calcium 5.9 L* (8.5-10.1) mg/dL Corrected Calcium 6.38 L* (8.5-10.1) mg/dL Magnesium 2.4 (1.8-2.4) mg/dL Total Bilirubin 0.5 (0.2-1.0) mg/dL AST 475 H (15-37) U/L ALT 214 H (14-59) U/L Alkaline Phosphatase 219 H (46-116) U/L Troponin I 0.027 (<=0.056) ng/mL C-Reactive Protein 1.6 H (<=0.9) mg/dL NT-Pro-B Natriuret Pep 09282 H (<=125) pg/mL Total Protein 7.1 (6.4-8.2) g/dL Albumin 3.4 (3.4-5.0) g/dL Globulin 3.7 Albumin/Globulin Ratio 0.92 Meds: Medications Generic Name Dose Route Start Last Admin Trade Name Freq PRN Reason Stop Dose Admin Sodium Chloride 10 ml 08/27/19 02:25 Saline Flush FLUSH ASDIRECTED PRN Keep Vein Open Discontinued Medications Generic Name Dose Route Start Last Admin Trade Name Freq PRN Reason Stop Dose Admin Furosemide 60 mg 08/27/19 02:37 08/27/19 02:59 Lasix IV 08/27/19 02:38 60 mg ONETIME ONE Administration Hydralazine HCl 10 mg 08/27/19 03:07 08/27/19 03:12 Apresoline IVPUSH 08/27/19 03:08 10 mg ONETIME ONE Administration Hydralazine HCl 10 mg 08/27/19 03:51 08/27/19 03:58 Apresoline IVPUSH 08/27/19 03:52 10 mg ONETIME ONE Administration Insulin Human Regular 10 unit 08/27/19 03:41 08/27/19 04:07 Humulin R IVPUSH 08/27/19 03:42 10 units ONETIME ONE Administration Nitroglycerin 0.4 mg 08/27/19 03:08 08/27/19 03:00 Nitrostat SL 08/27/19 03:09 0.4 mg ONETIME ONE Administration Nitroglycerin 0.4 mg 08/27/19 03:08 08/27/19 02:15 Nitrostat SL 08/27/19 03:09 0.4 mg ONETIME ONE Administration Departure - Departure Time of Disposition: 04:24 Disposition: DC/Tfer to Acute Hospital 02 Clinical Impression: Hypertensive crisis, ESRD (end stage renal disease) on dialysis - Discharge Information Referrals: Peri Farrell MD [Primary Care Provider] - Forms: ED Department Discharge, Interfacility Transfer EMTALA Sepsis Event Note - Focused Exam Vital Signs: Vital Signs BP 08/27/19 03:00 206/122 H 08/27/19 02:15 208/118 H Date Exam was Performed: 08/27/19 Time Exam was Performed: 04:23 - My Orders Last 24 Hours: My Active Orders 08/27/19 02:23 EKG Documentation Completion [RC] STAT Chest 1V Frontal [CR] Stat 08/27/19 02:25 Sodium Chloride 0.9% [Saline Flush] 10 ml FLUSH ASDIRECTED PRN Blood Culture x2 Reflex Set [OM.PC] Stat Peripheral IV Insertion Adult [OM.PC] Routine 08/27/19 03:31 ABG [BLOOD GAS ARTERIAL] [BG] Stat - Assessment/Plan Last 24 Hours: My Active Orders 08/27/19 02:23 EKG Documentation Completion [RC] STAT Chest 1V Frontal [CR] Stat 08/27/19 02:25 Sodium Chloride 0.9% [Saline Flush] 10 ml FLUSH ASDIRECTED PRN Blood Culture x2 Reflex Set [OM.PC] Stat Peripheral IV Insertion Adult [OM.PC] Routine 08/27/19 03:31 ABG [BLOOD GAS ARTERIAL] [BG] Stat Plan: Pt. will be transferred to [facility]. She is a code 1. She will be transported via [facility] ground ambulance. All questions were answered. [facility] is accepting.
[2019-08-27 03:23] LABS: CHLORIDE,CL 93 mmol/L (98-107); SODIUM,NA 132 mmol/L (136-145)
[2019-08-27 03:38] LABS: ANION GAP 27.5 mmol/L (10-20)
[2019-08-27] MEDS ORDERED: Insulin Regular, Human 100 Units/ML 3 ML Vial IVPUSH ONE (03:41)
[2019-08-27] MEDS ORDERED: Albuterol/Ipratropium 3.0-0.5 MG/3 ML Neb Soln NEB ONE (04:24)
[2019-08-27] MEDS ORDERED: LORazepam 2 MG/ML SDV IVPUSH ONE (04:28)
--- NOTE | 2019-08-27 07:23 | CR ---
[id number] RAD/RAD Chest PA or AP 1V EXAM: SINGLE VIEW CHEST. INDICATION: SHORTNESS OF BREATH CHEST PAIN COMPARISON: CORRELATION IS MADE WITH AUGUST 18, 2019 FINDINGS: There is no pneumonia or edema Median sternotomy sutures are seen with a dialysis catheter The cardiac silhouette is stable IMPRESSION: NO PNEUMONIA OR EDEMA Johnathon Cuellar MD 08/27/19 0722 Thank you for allowing us to participate in the care of your patient.
== END 2019-08-27 04:57 | disposition short-term general hospital (02) ==
LOC: VM.ED 02:10
DX: I16.9 Hypertensive crisis, unspecified (principal); I13.2 Hypertensive heart and chronic kidney disease with heart failure and with stage 5 chronic kidney disease, or end stage renal disease; I50.9 Heart failure, unspecified; N18.6 End stage renal disease; Z91.09 Other allergy status, other than to drugs and biological substances; Z88.1 Allergy status to other antibiotic agents; Z88.8 Allergy status to other drugs, medicaments and biological substances; Z88.5 Allergy status to narcotic agent; Z88.2 Allergy status to sulfonamides; Z79.82 Long term (current) use of aspirin; Z79.4 Long term (current) use of insulin; Z79.899 Other long term (current) drug therapy; Z99.2 Dependence on renal dialysis
CPT/HCPCS: 36415; 71045; 80053; 83605; 83735; 83880; 84484; 85025; 85379; 85610; 86140; 93005; 93010; 96374; 96375; 96376; 99284-GF; 99285-25; A9270-GY; J0360; J1815-GY; J1940; J2060; J7620-GY

== ENCOUNTER 2019-12-12 11:29 | Emergency (ER) | payer MEDICARE, MEDICAID ==
[2019-12-12] MEDS ORDERED: Sodium Chloride 0.9% 10 ML Syringe FLUSH PRN (11:33)
[2019-12-12] MEDS ORDERED: Ondansetron 4 MG/2 ML SDV IV ONE (11:45)
[2019-12-12] MEDS ORDERED: Lactated Ringers 1,000 ML IV ONE (11:45)
[2019-12-12] MEDS ORDERED: Insulin Regular, Human 100 Units/ML 3 ML Vial ONE (11:48)
[2019-12-12] MEDS ORDERED: hydrALAZINE 20 MG/ML SDV IVPUSH ONE (11:57)
[2019-12-12] MEDS ORDERED: cefTRIAXone 2 GM Vial IVPUSH ONE (11:58)
--- NOTE | 2019-12-12 11:59 | EDM.PDOC ---
ED HPI GENERAL MEDICAL PROBLEM - General Stated Complaint: STROKE CODE Time Seen by Provider: 12/12/19 11:40 Source of Information: Reports: Patient, EMS History Limitations: Reports: Altered Mental Status - History of Present Illness INITIAL COMMENTS - FREE TEXT/NARRATIVE: Patient comes emergency department today from home by ambulance with concerns of altered mental status diarrhea and vomiting. Majority of the HPI is obtained from EMS as well as the family as the patient is somewhat confused. According to the family she has been well recently. The vomiting has been going on recently after she was diagnosed with diabetic gastroparesis. She was started on a medication for this we are unsure of what it is but I would assume Reglan. She has had diarrhea for over a year which is chronic for her. Upon arrival the patient knows her name she knows what year it is and she is aware of the current pandemic. She really does not answer any questions to chest pain shortness of breath abdominal pain nausea or vomiting. HPI otherwise is unobtainable. THe mother did come to the ED and gave no further information. She was fine yesterday per the mother and she is not acting appropriately. She does have a sister of seizures unknown if she had a seizure. Unknown if she has been taking her medications. - Related Data Allergies Allergy/AdvReac Type Severity Reaction Status Date / Time propoxyphene [From Darvon-N] Allergy Severe Hives Verified 08/27/19 06:06 adhesive Allergy Unknown Itching Verified 08/27/19 06:06 heparin AdvReac Severe Other Verified 08/27/19 06:06 amoxicillin AdvReac Unknown Other Verified 08/27/19 06:06 baclofen AdvReac Unknown Other Verified 08/27/19 06:06 clonidine AdvReac Unknown Other Verified 08/27/19 06:06 codeine AdvReac Unknown Nausea Verified 08/27/19 06:06 ketorolac AdvReac Unknown Nausea Verified 08/27/19 06:06 metoclopramide AdvReac Unknown Itching Verified 08/27/19 06:06 sulfamethoxazole AdvReac Unknown Nausea and Verified 08/27/19 06:06 [From Bactrim] Vomiting tramadol AdvReac Unknown Nausea Verified 08/27/19 06:06 trimethoprim [From Bactrim] AdvReac Unknown Nausea and Verified 08/27/19 06:06 Vomiting Home Meds: Home Meds Aspirin 81 mg PO DAILY 12/30/17 [History] Calcium Acetate [PhosLo] 2,001 mg PO TIDMEALS 12/30/17 [History] Dextrose [Glucose] 16 gm PO ONETIME PRN 12/30/17 [History] Glucagon,Human Recombinant [Glucagon Emergency Kit] 1 mg IV ASDIRECTED PRN 12/30/17 [History] Insulin Degludec [Tresiba Flextouch U-100] 11 units SUBCUT DAILY 12/30/17 [History] Midodrine 10 mg PO TID PRN 12/30/17 [History] Ondansetron [Zofran ODT] 4 mg PO Q6H PRN 12/30/17 [History] amLODIPine Besylate [Amlodipine Besylate] 5 mg PO DAILY 12/30/17 [History] Darbepoetin Horace [Aranesp] 100 mcg SQ Q7D 01/09/19 [History] Insulin Lispro [Humalog] 0 unit SUBCUT ASDIRECTED 01/09/19 [History] Phenytoin 300 mg PO BEDTIME 01/09/19 [History] carvediloL [Carvedilol] 25 mg PO BIDMEALS 01/09/19 [History] hydrALAZINE [Apresoline] 25 mg PO ASDIRECTED 01/09/19 [History] ALPRAZolam [Xanax] 0.5 mg PO BID PRN 07/24/19 [History] Isosorbide Mononitrate [Imdur] 30 mg PO DAILY 07/24/19 [History] Losartan [Cozaar] 50 mg PO DAILY 07/24/19 [History] Nitroglycerin [Nitrostat] 0.4 mg SL ASDIRECTED PRN 07/24/19 [History] Phenytoin [Dilantin-125] 300 mg PO BEDTIME 07/24/19 [History] SUMAtriptan succinate [Imitrex] 6 mg SQ ASDIRECTED PRN 07/24/19 [History] doxercalciferoL [Hectorol] 2 mcg IV ASDIRECTED 07/24/19 [History] levETIRAcetam [Keppra] 1,000 mg PO DAILY 07/24/19 [History] risperiDONE [RisperiDAL] 0.25 mg PO BID 07/24/19 [History] Past Medical History Other HEENT History: 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 dysthymic disorder Endocrine/Metabolic History: Reports: Diabetes, Type I, Vitamin D Deficiency Hematologic History: Reports: Anemia Other Hematologic History: hypocalcemic - Infectious Disease History Infectious Disease History: Reports: C-Difficile - Past Surgical History HEENT Surgical History: Reports: Eye Surgery Cardiovascular Surgical History: Reports: Coronary Artery Bypass, Coronary Artery Stent Other Cardiovascular Surgeries/Procedures: angioplasty, bypass 10/24 GI Surgical History: Reports: Cholecystectomy, Colonoscopy Female Surgical History: Reports: Lithotripsy/ESWL, Tubal Ligation Musculoskeletal Surgical History: Reports: ORIF, Other (See Below) Other Musculoskeletal Surgeries/Procedures:: left foot surgery approx. 2 wks ago Social & Family History - Family History Family Medical History: Noncontributory - Caffeine Use Caffeine Use: Reports: Coffee, Soda, Tea ED ROS GENERAL - Review of Systems Review Of Systems: Comprehensive ROS is negative, except as noted in HPI. ED EXAM GENERAL NO PERIP PULSE - Physical Exam Exam: See Below Text/Narrative:: She is covered head to toe in feces. She is pleasantly confused and constantly moving in the bed. She is confused at times. Exam Limited By: Altered Mental Status General Appearance: Alert, Thin Eye Exam: Right Eye: EOMI, Normal Inspection, Left Eye: Other (Left false eye) Ears: Normal External Exam Nose: Normal Inspection Throat/Mouth: Normal Inspection Head: Atraumatic, Normocephalic Neck: Normal Inspection Respiratory/Chest: No Respiratory Distress, Lungs Clear, Normal Breath Sounds, No Accessory Muscle Use, Chest Non-Tender Cardiovascular: Normal Peripheral Pulses, Regular Rate, Rhythm, Tachycardia GI/Abdominal: Normal Bowel Sounds, Soft, Non-Tender (Female) Exam: Deferred Rectal (Female) Exam: Deferred Back Exam: Normal Inspection Extremities: Normal Range of Motion, Non-Tender, No Pedal Edema (although does have edema to bilateraly extremities. ) Neurological: Alert, Disoriented (Knows her name year and why we are wearing a mask, although really doesn't answer any other questions. Does follow commands at times. ) Skin Exam: Dry, Intact, Cool, Pallor Course - Orders/Labs/Meds Orders: Active Orders 24 hr Category Date Time Status Accu Check [Blood Glucose Check, Bedside] [] ONETIME Care 12/12/19 13:27 Active EKG Documentation Completion [] STAT Care 12/12/19 11:33 Active CULTURE BLOOD [] Stat Lab 12/12/19 11:37 Results CULTURE BLOOD [] Stat Lab 12/12/19 11:59 Results LEVETIRACETAM, S [REF] Stat Lab 12/12/19 11:46 Received UA RFX KAM AND CULT IF INDIC [URIN] Stat Lab 12/12/19 11:34 Ordered Insulin Regular, Human [HumuLIN R] 100 unit Med 12/12/19 13:30 Active Sodium Chloride 0.9% [Normal Saline] 99 ml IV TITRATE Sodium Chloride 0.9% [Saline Flush] Med 12/12/19 11:33 Active 10 ml FLUSH ASDIRECTED PRN Blood Culture x2 Reflex Set [OM.PC] Stat Oth 12/12/19 11:38 Ordered Peripheral IV Insertion Adult [OM.PC] Stat Oth 12/12/19 11:33 Ordered Medication Orders Insulin Human Regular 100 unit (/ Sodium Chloride) 100 mls @ 5.7 mls/hr IV TITRATE JACK; Protocol Sodium Chloride (Saline Flush) 10 ml FLUSH ASDIRECTED PRN PRN Reason: Keep Vein Open Labs: Laboratory Tests 12/12/19 12/12/19 12/12/19 Range/Units 11:37 11:37 11:37 WBC 8.1 (4.0-10.0) x10^3/uL RBC 3.08 L (4.00-5.50) x10^6/uL Hgb 10.5 L D (12.0-16.0) g/dL Hct 32.4 L (33.0-47.0) % MCV 105.2 H D (78.0-93.0) fL MCH 34.1 H (26.0-32.0) pg MCHC 32.4 (32.0-36.0) g/dL RDW Coeff of Sammie 13.9 (10.0-15.0) % Plt Count 184 (130-400) x10^3/uL Neut % (Auto) 87.2 H (50.0-80.0) % Lymph % (Auto) 6.4 L (25.0-50.0) % Creek % (Auto) 6.2 (2.0-11.0) % Eos % (Auto) 0.0 (0.0-4.0) % Baso % (Auto) 0.2 (0.2-1.2) % PT 11.6 (9.5-12.3) SEC INR 1.1 L (2.0-3.5) APTT 21.9 L (25.6-32.8) SEC POC VBG pH (7.31-7.41) POC VBG pCO2 (41-51) POC VBG pO2 POC VBG HCO3 (23-28) POC VBG Total CO2 (24-29) POC VBG Base Excess ((-2) - 3) POC FiO2 Sodium 133 L (136-145) mmol/L Potassium 4.4 (3.5-5.1) mmol/L Chloride 94 L (98-107) mmol/L Carbon Dioxide 29 D (21-32) mmol/L Anion Gap 14.4 (10-20) mmol/L BUN 20 H D (7-18) mg/dL Creatinine 5.3 H* D (0.55-1.02) mg/dL Est Cr Clr Drug Dosing TNP Estimated GFR (MDRD) 9 Glucose 708 H* (74-106) mg/dL POC Glucose (74-106) mg/dL Lactic Acid (0.4-2.0) mmol/L Calcium 6.7 L* (8.5-10.1) mg/dL Corrected Calcium 7.42 L (8.5-10.1) mg/dL Magnesium 1.3 L (1.8-2.4) mg/dL Total Bilirubin 0.8 (0.2-1.0) mg/dL AST 107 H (15-37) U/L ALT 73 H (14-59) U/L Alkaline Phosphatase 151 H (46-116) U/L Troponin I < 0.017 (<=0.056) ng/mL C-Reactive Protein 1.2 H (<=0.9) mg/dL NT-Pro-B Natriuret Pep 33587 H (<=125) pg/mL Total Protein 6.1 L (6.4-8.2) g/dL Albumin 3.1 L (3.4-5.0) g/dL Globulin 3.0 Albumin/Globulin Ratio 1.03 Phenytoin (10-20) ug/mL COVID-19 (KISHAN) (NEGATIVE) 12/12/19 12/12/19 12/12/19 Range/Units 11:37 11:46 11:54 WBC (4.0-10.0) x10^3/uL RBC (4.00-5.50) x10^6/uL Hgb (12.0-16.0) g/dL Hct (33.0-47.0) % MCV (78.0-93.0) fL MCH (26.0-32.0) pg MCHC (32.0-36.0) g/dL RDW Coeff of Sammie (10.0-15.0) % Plt Count (130-400) x10^3/uL Neut % (Auto) (50.0-80.0) % Lymph % (Auto) (25.0-50.0) % Creek % (Auto) (2.0-11.0) % Eos % (Auto) (0.0-4.0) % Baso % (Auto) (0.2-1.2) % PT (9.5-12.3) SEC INR (2.0-3.5) APTT (25.6-32.8) SEC POC VBG pH 7.41 (7.31-7.41) POC VBG pCO2 46 (41-51) POC VBG pO2 36 POC VBG HCO3 30 H (23-28) POC VBG Total CO2 31 H (24-29) POC VBG Base Excess 5 H ((-2) - 3) POC FiO2 0.21 Sodium (136-145) mmol/L Potassium (3.5-5.1) mmol/L Chloride (98-107) mmol/L Carbon Dioxide (21-32) mmol/L Anion Gap (10-20) mmol/L BUN (7-18) mg/dL Creatinine (0.55-1.02) mg/dL Est Cr Clr Drug Dosing Estimated GFR (MDRD) Glucose (74-106) mg/dL POC Glucose (74-106) mg/dL Lactic Acid 3.2 H* (0.4-2.0) mmol/L Calcium (8.5-10.1) mg/dL Corrected Calcium (8.5-10.1) mg/dL Magnesium (1.8-2.4) mg/dL Total Bilirubin (0.2-1.0) mg/dL AST (15-37) U/L ALT (14-59) U/L Alkaline Phosphatase (46-116) U/L Troponin I (<=0.056) ng/mL C-Reactive Protein (<=0.9) mg/dL NT-Pro-B Natriuret Pep (<=125) pg/mL Total Protein (6.4-8.2) g/dL Albumin (3.4-5.0) g/dL Globulin Albumin/Globulin Ratio Phenytoin 4 L (10-20) ug/mL COVID-19 (KISHAN) (NEGATIVE) 12/12/19 12/12/19 12/12/19 Range/Units 12:29 13:57 14:20 WBC (4.0-10.0) x10^3/uL RBC (4.00-5.50) x10^6/uL Hgb (12.0-16.0) g/dL Hct (33.0-47.0) % MCV (78.0-93.0) fL MCH (26.0-32.0) pg MCHC (32.0-36.0) g/dL RDW Coeff of Sammie (10.0-15.0) % Plt Count (130-400) x10^3/uL Neut % (Auto) (50.0-80.0) % Lymph % (Auto) (25.0-50.0) % Creek % (Auto) (2.0-11.0) % Eos % (Auto) (0.0-4.0) % Baso % (Auto) (0.2-1.2) % PT (9.5-12.3) SEC INR (2.0-3.5) APTT (25.6-32.8) SEC POC VBG pH (7.31-7.41) POC VBG pCO2 (41-51) POC VBG pO2 POC VBG HCO3 (23-28) POC VBG Total CO2 (24-29) POC VBG Base Excess ((-2) - 3) POC FiO2 Sodium (136-145) mmol/L Potassium (3.5-5.1) mmol/L Chloride (98-107) mmol/L Carbon Dioxide (21-32) mmol/L Anion Gap (10-20) mmol/L BUN (7-18) mg/dL Creatinine (0.55-1.02) mg/dL Est Cr Clr Drug Dosing Estimated GFR (MDRD) Glucose 491 H* (74-106) mg/dL POC Glucose > 500 H* (74-106) mg/dL Lactic Acid (0.4-2.0) mmol/L Calcium (8.5-10.1) mg/dL Corrected Calcium (8.5-10.1) mg/dL Magnesium (1.8-2.4) mg/dL Total Bilirubin (0.2-1.0) mg/dL AST (15-37) U/L ALT (14-59) U/L Alkaline Phosphatase (46-116) U/L Troponin I (<=0.056) ng/mL C-Reactive Protein (<=0.9) mg/dL NT-Pro-B Natriuret Pep (<=125) pg/mL Total Protein (6.4-8.2) g/dL Albumin (3.4-5.0) g/dL Globulin Albumin/Globulin Ratio Phenytoin (10-20) ug/mL COVID-19 (KISHAN) Negative (NEGATIVE) 12/12/19 12/12/19 Range/Units 15:19 16:24 WBC (4.0-10.0) x10^3/uL RBC (4.00-5.50) x10^6/uL Hgb (12.0-16.0) g/dL Hct (33.0-47.0) % MCV (78.0-93.0) fL MCH (26.0-32.0) pg MCHC (32.0-36.0) g/dL RDW Coeff of Sammie (10.0-15.0) % Plt Count (130-400) x10^3/uL Neut % (Auto) (50.0-80.0) % Lymph % (Auto) (25.0-50.0) % Creek % (Auto) (2.0-11.0) % Eos % (Auto) (0.0-4.0) % Baso % (Auto) (0.2-1.2) % PT (9.5-12.3) SEC INR (2.0-3.5) APTT (25.6-32.8) SEC POC VBG pH (7.31-7.41) POC VBG pCO2 (41-51) POC VBG pO2 POC VBG HCO3 (23-28) POC VBG Total CO2 (24-29) POC VBG Base Excess ((-2) - 3) POC FiO2 Sodium (136-145) mmol/L Potassium (3.5-5.1) mmol/L Chloride (98-107) mmol/L Carbon Dioxide (21-32) mmol/L Anion Gap (10-20) mmol/L BUN (7-18) mg/dL Creatinine (0.55-1.02) mg/dL Est Cr Clr Drug Dosing Estimated GFR (MDRD) Glucose (74-106) mg/dL POC Glucose 382 H 244 H (74-106) mg/dL Lactic Acid (0.4-2.0) mmol/L Calcium (8.5-10.1) mg/dL Corrected Calcium (8.5-10.1) mg/dL Magnesium (1.8-2.4) mg/dL Total Bilirubin (0.2-1.0) mg/dL AST (15-37) U/L ALT (14-59) U/L Alkaline Phosphatase (46-116) U/L Troponin I (<=0.056) ng/mL C-Reactive Protein (<=0.9) mg/dL NT-Pro-B Natriuret Pep (<=125) pg/mL Total Protein (6.4-8.2) g/dL Albumin (3.4-5.0) g/dL Globulin Albumin/Globulin Ratio Phenytoin (10-20) ug/mL COVID-19 (KISHAN) (NEGATIVE) Meds: Medications Generic Name Dose Route Start Last Admin Trade Name Martha PRN Reason Stop Dose Admin Insulin Human Regular 100 unit 100 mls @ 5.7 mls/hr 12/12/19 13:30 / Sodium Chloride IV TITRATE JACK Protocol 0.1 UNITS/KG/HR Sodium Chloride 10 ml 12/12/19 11:33 Saline Flush FLUSH ASDIRECTED PRN Keep Vein Open Discontinued Medications Generic Name Dose Route Start Last Admin Trade Name Martha PRN Reason Stop Dose Admin Ceftriaxone Sodium 2 gm 12/12/19 11:58 Rocephin IVPUSH 12/12/19 11:59 STAT ONE Hydralazine HCl 10 mg 12/12/19 11:57 Apresoline IVPUSH 12/12/19 11:58 ONETIME ONE Lactated Ringer's 1,000 mls @ 999 mls/hr 12/12/19 11:45 Ringers, Lactated IV 12/12/19 12:45 ONETIME ONE Magnesium Sulfate 2 gm/ Premix 50 mls @ 25 mls/hr 12/12/19 12:33 IV 12/12/19 14:32 ONETIME ONE Vancomycin HCl 1 gm/ Sodium 250 mls @ 250 mls/hr 12/12/19 12:38 Chloride IV 12/12/19 13:37 STAT ONE Vancomycin HCl 750 mg/ Sodium 250 mls @ 333 mls/hr 12/12/19 12:42 Chloride IV 12/12/19 13:27 STAT ONE Levetiracetam 1,000 mg/ Sodium 110 mls @ 400 mls/hr 12/12/19 13:23 12/12/19 14:54 Chloride IV 12/12/19 13:37 400 mls/hr ONETIME ONE Administration Insulin Human Regular Confirm 12/12/19 11:48 Humulin R Administered 12/12/19 11:49 Dose 300 unit .ROUTE .STK-MED ONE Insulin Human Regular 10 unit 12/12/19 12:32 Humulin R IVPUSH 12/12/19 12:33 ONETIME ONE Labetalol HCl 20 mg 12/12/19 13:26 12/12/19 14:33 Normodyne IVPUSH 12/12/19 13:27 20 mg NOW ONE Administration Protocol Labetalol HCl 40 mg 12/12/19 14:36 12/12/19 15:08 Normodyne IVPUSH 12/12/19 14:37 20 mg NOW ONE Administration Protocol Ondansetron HCl 4 mg 12/12/19 11:45 Zofran IV 12/12/19 11:46 ONETIME ONE - Radiology Interpretation Free Text/Narrative:: CT of the head stroke protocol negative plain CT of the brain. - Re-Assessments/Exams Free Text/Narrative Re-Assessment/Exam: 12/12/19 14:02 Pt went directly to the CT scanner upon arrival due to the concerns of stroke by EMS although there are no focal neurological changes the ambulance thought she had weakness to the left arm although there is none on arrival. She moves all extremities strong equal not to command although spontaneously and no facial droop. Temp elevated. Blood cultures x 2 1 liter LR bolus Zofran for nausea. COVID negative. Vanco ceftriaxone CXR negative per radiology. BS 708 with a normal PH on Venous blood gas. Blood pressure 240 hydralazine 10mg IVP with really little improvement of her blood pressure. elevated lactic Magnesium 1.3 magsulfate 2 grams IVPB. Her mental status is unchanged and we are unaware of when the last known normal was. I called and spoke with DR. Jimenez the hospitalist component assembler supervisor at [facility] ER course findings and concerns were relayed to him. [facility] with the understanding that we have to hold the patient here for a while until a bed opens up. He would like an insulin gtt started. A dose of keppra and also try to keep her blood pressure at 180. I discussed the plan of care with the patient and the patients mother. They are understanding of the plan and their questions answered. 12/12/19 14:10 Blood sugar still > 500 will start insulin gtt at 5 units/hr. labetalol 20mg IVP for hypertension. 12/12/19 15:00 Blood sugar 491 12/12/19 16:30 Finally got a bed at [facility]. Blood sugar down to 240s will stop her insulin gtt at this time. Otherwise unchanged patient status. Departure - Departure Time of Disposition: 13:00 Disposition: DC/Tfer to Acute Hospital 02 Clinical Impression: Hyperglycemia, Encephalopathy acute, Hypertensive crisis, Hypomagnesemia, Hypocalcemia Sepsis Qualifiers: Sepsis type: sepsis due to unspecified organism Sepsis acute organ dysfunction status: unspecified Qualified Code(s): A41.9 - Sepsis, unspecified organism - Discharge Information Referrals: Peri Farrell MD [Primary Care Provider] - Forms: Interfacility Transfer LUCIO - My Orders Last 24 Hours: My Active Orders 12/12/19 11:33 EKG Documentation Completion [RC] STAT Sodium Chloride 0.9% [Saline Flush] 10 ml FLUSH ASDIRECTED PRN Peripheral IV Insertion Adult [OM.PC] Stat 12/12/19 11:34 UA RFX KAM AND CULT IF INDIC [URIN] Stat 12/12/19 11:37 CULTURE BLOOD [BC] Stat 12/12/19 11:38 Blood Culture x2 Reflex Set [.PC] Stat 12/12/19 11:46 LEVETIRACETAM, S [REF] Stat 12/12/19 11:59 CULTURE BLOOD [BC] Stat 12/12/19 13:27 Accu Check [Blood Glucose Check, Bedside] [RC] ONETIME 12/12/19 13:30 Insulin Regular, Human [HumuLIN R] 100 unit Sodium Chloride 0.9% [Normal Saline] 99 ml IV TITRATE - Assessment/Plan Last 24 Hours: My Active Orders 12/12/19 11:33 EKG Documentation Completion [RC] STAT Sodium Chloride 0.9% [Saline Flush] 10 ml FLUSH ASDIRECTED PRN Peripheral IV Insertion Adult [OM.PC] Stat 12/12/19 11:34 UA RFX KAM AND CULT IF INDIC [URIN] Stat 12/12/19 11:37 CULTURE BLOOD [BC] Stat 12/12/19 11:38 Blood Culture x2 Reflex Set [.PC] Stat 12/12/19 11:46 LEVETIRACETAM, S [REF] Stat 12/12/19 11:59 CULTURE BLOOD [BC] Stat 12/12/19 13:27 Accu Check [Blood Glucose Check, Bedside] [RC] ONETIME 12/12/19 13:30 Insulin Regular, Human [HumuLIN R] 100 unit Sodium Chloride 0.9% [Normal Saline] 99 ml IV TITRATE
--- NOTE | 2019-12-12 11:59 | CT ---
[id number] CT/CT Head Stroke Protocol Exam: CT Head Stroke Protocol Clinical Data: NEUROLOGIC DEFICIT COMPARISON: CORRELATION IS MADE WITH AUGUST 25, 2018 FINDINGS: There is no mass or mass effect There is no hemorrhage or hydrocephalus There are no extra-axial fluid collections There are no sites of abnormal attenuation Report called at time of dictation There is motion artifact IMPRESSION: NEGATIVE PLAIN CT BRAIN Johnathon Cuellar MD 12/12/19 [id number] Thank you for allowing us to participate in the care of your patient.
[2019-12-12 12:14] LABS: PTT,PARTIAL THROMBOPLSTIN TIME 21.9 SEC (25.6-32.8)
[2019-12-12 12:24] LABS: CHLORIDE,CL 94 mmol/L (98-107); SODIUM,NA 133 mmol/L (136-145)
[2019-12-12 12:26] LABS: ANION GAP 14.4 mmol/L (10-20)
[2019-12-12] MEDS ORDERED: Insulin Regular, Human 100 Units/ML 3 ML Vial IVPUSH ONE (12:32)
[2019-12-12] MEDS ORDERED: Magnesium Sulfate/Water 2 GM in Premix Bag 1 BAG IV ONE (12:33)
--- NOTE | 2019-12-12 13:20 | CR ---
[id number] RAD/RAD Chest PA or AP 1V EXAM: RAD Chest PA or AP 1V INDICATION: FEVER, ALTERED LOSS OF CONSCIOUSNESS. COMPARISON: August 27, 2019. DISCUSSION: Right IJ approach central venous catheter in place with tip at the cavoatrial junction. No change in position compared the prior examination. Cardiomediastinal silhouette is unchanged in size and contour compared to the prior examination. No evidence of fever. No effusion or pneumothorax. IMPRESSION: Negative for pneumonia or other acute findings. Overall, no significant change in appearance compared to August 27, 2019. Joao Bryson MD 12/12/19 [id number] Thank you for allowing us to participate in the care of your patient.
[2019-12-12] MEDS ORDERED: levETIRAcetam 1,000 MG in Sodium Chloride 0.9% 100 ML IV ONE (13:23)
[2019-12-12] MEDS ORDERED: Labetalol 20 MG/4 ML Syringe IVPUSH ONE ×2 (13:26→14:36)
== END 2019-12-12 16:39 | disposition short-term general hospital (02) ==
LOC: VM.ED 11:29
DX: A41.9 Sepsis, unspecified organism (principal); E10.65 Type 1 diabetes mellitus with hyperglycemia; E83.42 Hypomagnesemia; E83.51 Hypocalcemia; I16.9 Hypertensive crisis, unspecified; G93.40 Encephalopathy, unspecified; R41.82 Altered mental status, unspecified; I11.0 Hypertensive heart disease with heart failure; I50.9 Heart failure, unspecified; E10.40 Type 1 diabetes mellitus with diabetic neuropathy, unspecified; I25.10 Atherosclerotic heart disease of native coronary artery without angina pectoris; F41.9 Anxiety disorder, unspecified; F32.9 Major depressive disorder, single episode, unspecified; Z20.828 Contact with and (suspected) exposure to other viral communicable diseases; Z95.1 Presence of aortocoronary bypass graft; Z88.8 Allergy status to other drugs, medicaments and biological substances; Z88.1 Allergy status to other antibiotic agents; Z91.048 Other nonmedicinal substance allergy status; Z88.5 Allergy status to narcotic agent; Z88.2 Allergy status to sulfonamides; Z79.82 Long term (current) use of aspirin; Z79.899 Other long term (current) drug therapy
CPT/HCPCS: 36415; 70450; 71045; 80053; 80177; 80185; 82803; 82947; 82962; 83605; 83735; 83880; 84484; 85025; 85610; 85730; 86140; 87040; 87077; 93005; 96361; 96365; 96366; 96367; 96368; 96375; 96376; 99284-GF; 99285-25; J0360; J0696; J1815-GY; J1953; J2405; J3370; J3475; J3490; J7050; U0002